=== PATIENT | female | born 1965 | race Caucasian/White ===

== ENCOUNTER 2016-07-22 09:30 | Inpatient (IN) | payer OTHER ==
[~2016-07-22] VITALS: Ht 171.4 cm; Wt 131.0 kg
[~2016-07-22 09:30] MED LIST changes: -CIPR-9 PO; -CYCL1TAB29 PO; -FLAX100025 PO; -FLAX10006 PO; -GETGO ROLLING W1 MI1; -HYDR-3366 PO; -HYDR-3583 PO; -MUPI2OIN TOPICAL; -NYST100084 TOPICAL; -OMEG600C2 PO; -WALKER ROLLING; -[UNRECOGNIZED DRUG - OTHER] TOP
[2016-07-22] MEDS ORDERED: FLAX10006 PO (09:59)
[2016-07-22] MEDS ORDERED: GETGO ROLLING W1 MI1 (09:59)
--- NOTE | 2016-07-23 12:42 | MH ---
cc: JOHN MURPHY MD, CARMEN L. MD DATE OF ADMISSION 07/24/2016 ADMISSION DIAGNOSIS Lumbar degenerative disk disease HISTORY OF PRESENT ILLNESS This is a 51-year-old female who is known to our office from previously undergoing a C4-C5, C5-C6, and C6-C7 anterior cervical fusion with C4-C7 anterior cervical plate placement on 03/06/2016. She healed well from her surgery and followed up in the office with complaints of weakness and numbness in her lower extremities. She has had weakness in the legs for the last year and a half, but this has progressively gotten worse. She gets sharp stabbing pain when she is standing on her legs. The pain in the legs is usually constant except with sitting or laying down. She states that she has urge incontinence, but does not wear have a pad or Depends. She has had three epidural steroid injection since May 2016. She had PT for six weeks which helped, but not for long. She states she can walk only five minutes and cannot stand very long. She states she has had weakness in the right foot with difficulty lifting her toes for the last year. She has numbness in her legs all over, but worse in the right lateral thigh. PAST MEDICAL HISTORY Significant for a: 1. Lumbar spine surgery at L4-L5 in 1985. 2. Anterior cervical C4-C5, C5-C6, C6-C7 interbody fusion with C4-C7 cervical plate placement on 03/06/2016 3. Sleep apnea 4. Hypertension 5. Gastroesophageal reflux disease 6. Depression CURRENT MEDICATIONS She takes: 1. Cymbalta 50 mg q.h.s. 2. Prevacid 30 mg daily. 3. Lisinopril 10 mg daily ALLERGIES She is allergic to PREDNISONE. FAMILY HISTORY Her mother is at 69 year's old, had a history of lung and liver cancer. Her father is AT 87 year's old had heart failure. Her sister is alive at 66 year's old, but in poor health. She has a brother who is alive at age 48 in good health. SOCIAL HISTORY She works in an office as a entertainment agent. She is . She does not have children. She does not smoke. She does not drink alcohol. REVIEW OF SYSTEMS CONSTITUTIONAL: She denies any fever or chills. EARS, NOSE, AND THROAT: No pharyngitis, exudates, bloody drainage from her nose. CARDIOVASCULAR: She denies any chest pain or palpitations. RESPIRATORY: No cough. Positive for shortness of breath. GENITOURINARY: No dysuria. MUSCULOSKELETAL: Positive for low back pain. SKIN: No rashes or pruritus. NEUROLOGIC: Positive for difficulty with speech and memory sometimes. GASTROINTESTINAL: No abdominal pain. No bowel incontinence. No nausea. PSYCHIATRIC: No anxiety. Positive for depression symptoms. ENDOCRINE: No polyuria or polydipsia. HEMATOLOGIC: No bruising or bleeding tendencies. PHYSICAL EXAMINATION HEAD: Normocephalic, atraumatic. NECK: Supple. No carotid bruits heard. LUNGS: On auscultation of the lungs, clear to auscultation bilaterally. HEART: Regular rate and rhythm, normal S1 and S2. ABDOMEN: Soft, nontender. Positive bowel sounds. She is obese. SKIN: No cyanosis or erythema. MUSCULOSKELETAL: She has right foot weakness, EHL is 0-1 out of 5. Dorsiflexion is 1/5. Her strength in the lower extremities is otherwise 5/5 in the lower extremities. NEUROLOGIC: She is awake, alert, and oriented. Cranial nerves II-XII appear grossly intact. Her speech is fluent. Comprehension is good. Reflexes are absent right patella, 2+, left patella and diminished Achilles reflexes bilaterally. DATA REVIEW MRI findings, she has severe degenerative disk disease and disk height collapse and endplate changes at the L3-L4, L4-L5 levels with a moderate degenerative disk disease at the L5-S1 level. There is a lesser degree of disk degeneration at the T12-L1 and L2-L3 levels. There is also chronic central T12-L1 disk protrusion mild stenosis. She has moderate spinal stenosis at the L2-L3, L3-L4, and L4-L5 levels from facet ligamentum flavum hypertrophy along with disk protrusions and significant right L3-L4 and L4-L5 foraminal stenosis. There is also a grade L4-L5 and to a lesser extent L3-L4 spondylolisthesis noted. L4-5 right hemilaminotomy defect with degenerative disk disease and a grade 1 retrolisthesis and facet arthropathy and L5-S1 degenerative disk disease with mild central disk protrusion. She has also had an EMG nerve conduction study from September 24, 2015 which reveals mild active right L4 and L5 lumbar radiculopathy and possibly the left L5 also. IMPRESSION A 51-year-old female with a chronic history of low back pain along with associated progressively worsening right foot drop and radiculopathy with subjective weakness in both legs and uses a cane to ambulate short distances due to her neurogenic claudication symptoms. She has undergone physical therapy and interventional pain management without much relief and relates that she cannot live with her current level of discomfort and activity restriction. PLAN We have discussed treatment options with the patient which include continued conservative measures versus surgical intervention. She is requesting that we proceed with surgical intervention stating that she cannot live with her current level discomfort and her activity restriction. We have recommended an L2-L5 decompressive laminotomy with right L3-L4 and L4-L5 transforaminal interbody fusion with pedicle screw fixation to address the stenosis involving the spinal canal and the foramen, as well as associated degenerative disk disease and spondylolisthesis. No guarantees were given as she has multiple other levels involved, as well as post laminectomy syndrome and scar tissue which can lead to ongoing symptoms. We have discussed risks involved with surgery to include, but not limited to bleeding, infection, muscle weakness, voice hoarseness, difficulty swallowing, heart attack, stroke blood clots, non-fusion, scar tissue formation among others. Dictated by: Ryan Soto PA-C MD MARVIN Saeed/SHARRON /11:56 AM /12:17 PM VIDHYA
[2016-07-24 06:43] VITALS: BP 149/87; PULSE 86; RESP 18; TEMP 98.9; O2SAT 96
[2016-07-24] MEDS ORDERED: VANCOMYCIN HCL 1000 MG VIAL ONE ×2 (06:43→07:52)
[2016-07-24] MEDS ORDERED: SODIUM CHLOR 0.9% 250 ML INJ 250 ML ONE (06:43)
[2016-07-24] MEDS ORDERED: INSULIN HUMAN REGULAR 1,000 UNITS/10 ML VIAL SQ PRN (07:00)
[2016-07-24] MEDS ORDERED: SODIUM CHLORID 0.9% 500 ML IV SCH (07:00)
[2016-07-24] MEDS: SODIUM CHLOR 0.9% 1000 ML INJ 1,000 ML IV SCH (07:00)
[2016-07-24] MEDS ORDERED: METOPROLOL TARTRATE 25 MG TAB PO PRN (07:00)
[2016-07-24] MEDS ORDERED: VANCOMYCIN HCL 1000 MG ON-CALL/NS 250 ML IV SCH ×2 (07:00)
[2016-07-24] MEDS ORDERED: LACTATED RINGER'S 1000 ML IV SCH (07:00)
[2016-07-24] MEDS ORDERED: ARTIFICIAL TEARS OPTH OINT 3.5 APPLIC/3.5 GM TUBO ONE (07:04)
[2016-07-24] MEDS ORDERED: KETAMINE HCL 500 MG/5 ML VIAL ONE (07:49)
[2016-07-24] MEDS ORDERED: MORPHINE SULFATE 4 MG/ML INJ ONE (07:50)
[2016-07-24] MEDS ORDERED: THROMBIN (TOPICAL) 5,000 UNIT VIAL ONE (07:52)
[2016-07-24] MEDS ORDERED: BUPIVACAINE/EPINEPHRINE 0.5% PF 30 ML VIAL ONE (07:52)
[2016-07-24] MEDS ORDERED: GELFOAM SIZE 100 ONE (07:53)
[2016-07-24] MEDS ORDERED: ACETAMINOPHEN 1000 MG/100 ML VIAL IV ONE (08:30)
[2016-07-24] MEDS ORDERED: MIDAZOLAM HCL 2 MG/2 ML VIAL ONE (08:30)
[2016-07-24] MEDS ORDERED: PHENYLEPH/NS 1000 MCG/10 ML SYR IV ONE (12:00)
[2016-07-24] MEDS ORDERED: NEOSTIGMINE 3 MG/3 ML SYR IV ONE (12:00)
[2016-07-24] MEDS ORDERED: ONDANSETRON HCL 4 MG/2 ML VIAL IV PUSH ONE (12:00)
[2016-07-24] MEDS ORDERED: PROPOFOL 200 MG/20 ML AMP IV ONE (12:00)
[2016-07-24] MEDS ORDERED: ePHEDrine/NS 25 MG/5 ML SYR IV ONE (12:00)
[2016-07-24] MEDS ORDERED: NORMOSOL R INJ 1,000 ML IV ONE (12:00)
[2016-07-24] MEDS ORDERED: BUPIVACAINE/EPINEPHRINE 0.5% PF 30 ML VIAL INFIL ONE (13:40)
[2016-07-24] MEDS ORDERED: VANCOMYCIN HCL 1000 MG VIAL OTHER ONE (13:45)
[2016-07-24] MEDS ORDERED: NALOXONE HCL 0.4 MG/ML AMP IV PRN (14:00)
[2016-07-24] MEDS ORDERED: cloNIDine HCL 0.1 MG TAB PO PRN (14:00)
[2016-07-24] MEDS ORDERED: PROMETHAZINE INJ 25 MG/ML VIAL IM PRN (14:00)
[2016-07-24] MEDS ORDERED: ALUMINUM/MAGNESIUM/SIMETH 30 ML CUP PO PRN (14:00)
[2016-07-24] MEDS ORDERED: MENTHOL LOZENGE SUCK-ON PRN (14:00)
[2016-07-24] MEDS ORDERED: ACETAMINOPHEN/HYDROcodone 325 MG/10 MG TAB PO PRN (14:00)
[2016-07-24] MEDS ORDERED: ACETAMINOPHEN 325 MG TAB PO PRN (14:00)
[2016-07-24] MEDS ORDERED: diphenhydrAMINE HCL 50 MG/ML VIAL IV PRN (14:00)
[2016-07-24] MEDS ORDERED: ONDANSETRON HCL 4 MG/2 ML VIAL IV PRN (14:00)
[2016-07-24] MEDS ORDERED: RESP: ALBUTEROL 2.5 MG/3 ML NEB (PRN) NEB (14:00)
[2016-07-24] MEDS ORDERED: CALCIUM GLUCONATE INJ 1 GM in SODIUM CHLORIDE 0.9% INJ 100 ML IV PRN (14:00)
[2016-07-24] MEDS ORDERED: SODIUM CHLORIDE 0.9% FLUSH 5 ML FLUSH IVF PRN (14:00)
[2016-07-24] MEDS ORDERED: POTASSIUM CHLOR 20 MEQ PREMIX 100 ML IV PRN (14:00)
[2016-07-24] MEDS ORDERED: MAGNESIUM SULFATE INJ 2 GM in SODIUM CHLORIDE 0.9% INJ 100 ML IV PRN (14:00)
[2016-07-24] MEDS ORDERED: TRIAMCINOLONE ACETONIDE 0.1% CREAM 15 GM TOPICAL SCH (14:00)
[2016-07-24] MEDS ORDERED: BISACODYL 10 MG SUPP PR PRN (14:00)
--- NOTE | 2016-07-24 14:02 | PD.OP ---
MD Juan Antonio Beatty MD Operative Report Date of Surgery: Jul 24, 2016 Preoperative Diagnosis: Failed back syndrome with intractable low back pain and radiculopathy; remote history of L4-5 laminectomy; L2-5 spinal stenosis; L3-4 and L4-5 severe degenerative disc disease with facet arthropathy Postoperative Diagnosis: Same Procedure: Lumbar L3-4 and L4-5 transforaminal interbody fusion; L2, L3, L4 and L5 decompressive laminotomy; L3-5 pedicle screw fixation; L3-4 and L4-5 interbody cage placement; microsurgical technique Anesthesia: Gen. endotracheal by Seema Doty Surgeon: Narayan Monk Hvac Design Engineer(s): Sandi Nguyen Operation and Findings: Following initiation of general endotracheal anesthesia, the patient had a Corcoran catheter placed along with sequential compression devices. A gram of vancomycin was administered intravenously and she was turned in a prone position on a Michael frame, on a Efrain table, and all pressure points adequately padded. The lumbosacral region was then prepped with Chloraprep and sterilely draped with Ioban along the usual sterile draping. She had a previous large midline skin incision which was incised after infiltrating the skin with 0.5% Marcaine with epinephrine solution extending down through the fascia. The muscle fibers were split using avascular fatty plane and detached from the underlying facets, transverse process and lateral portion of lamina on the right side and a self-retaining retractor used for exposure. Intraoperative fluoroscopy was also used for level of confirmation along with microscope magnification for further dissection. There was significant facet and ligamentum flavum hypertrophy noted at the L2-3, L3-4 and L4-5 levels with the right L4-5 laminectomy defect with extensive epidural scar tissue. Right L3-4 and L4-5 facet was resected with a drill bit along with the lamina and there was severe foraminal and lateral recess stenosis from hypertrophied ligamentum flavum and facet which were decompressed bilaterally through the usual lateral approach. There was significant disc height collapse along with disc protrusion also leading to the foraminal stenosis at both levels. Right L2-3 hemilaminotomy with medial facetectomy and circumferential spinal canal decompression with removal of hypertrophied ligamentum flavum also undertaken. Epidural hemostasis was achieved with bipolar cautery and Gelfoam with thrombin. Subsequently entered into the disc space at the L3-4 and L4-5 levels with a #15 blade and bouchra were used for discectomy. I then placed PEEK cage packed with local autograft bone and more local autograft bone was packed adjacent to the cage in interspace for added interbody fusion. With placement of the cages, I was able to distract the interspace and opened up the foramen further bilaterally. Subsequently in order to facilitate the fusion and provide stabilization, pedicle screw fixation was undertaken using Williamson spine screws on entry point at the right L3, L4 and L5 levels at the junction of the transverse process and facets. Subsequently using AP and lateral fluoroscopy tap and screw placement was undertaken. The screws were then connected with a chikis and locked in place with caps. The construct appeared very secure at this point. The area was then copiously irrigated with Vancomycin solution and powder. The retractors were removed and the bipolar cautery used for hemostasis. The muscle fascia was then approximated using 2-0 Vicryl interrupted stitches and then 3-0 Vicryl subcuticular stitches also placed in interrupted fashion. The final skin closure was completed with ady. A sterile dressing was then applied. The patient then turned in supine position, extubated and taken to recovery room. There were no intraoperative complications. All sponge and needle counts were correct at the end of procedure. Estimated blood loss about 200 ml. Narayan Monk MD Jul 24, 2016 14:02
[2016-07-24] MEDS ORDERED: DO NOT ADM ANY ANTICOAGULANT DRUGS XX PRN (14:40)
--- NOTE | 2016-07-24 15:04 | RADRPT ---
EXAM DATE/TIME: 07/24/2016 08:46 [facility] COMPARISON: No previous studies available for comparison. INDICATIONS : Fusion L3,L4 and L4,L5 with screw and chikis placement. MEDICAL HISTORY : None. SURGICAL HISTORY : Fusion, cervical. ENCOUNTER: Initial ACUITY: 1 day PAIN SCORE: Non-responsive. LOCATION: Lumbar spine. FINDINGS: 2 magnified C-arm spot views are centered over the lower lumbar spine. These reveal 3 level unilatera l posterior fixation involving L3, L4, L5 with intervening bone graft devices. Alignment is grossly p reserved. CONCLUSION: Limited images as detailed above. Vincent Henriquez Jr., MD on July 24, 2016 at 15:02 Board Certified Radiologist. This report was verified electronically.
[2016-07-24] MEDS ORDERED: *RESP: ALBUTEROL 2.5 MG/3 ML NEB (PRN) PERIprocedural Use ONLY NEB ONE (15:30)
[2016-07-24] MEDS: NS + KCL 20 MEQ INJ 1,000 ML IV SCH ×2 (16:00→22:49)
[2016-07-24] MEDS: MORPHINE SULFATE 30 MG/30 ML PCA IV SCH (16:00)
[2016-07-24] MEDS ORDERED: *morphine SULFATE 8 MG/ML PERIprocedure ONLY ONE (16:47)
[2016-07-24] MEDS: CYCLOBENZAPRINE HCL 10 MG TAB PO PRN (16:58)
[2016-07-24 17:48] LABS: AUTOMATED NEUTROPHIL # 13.6 TH/MM3 (1.8-7.7); BASOPHIL % 0.2 % (0.0-2.0); HEMATOCRIT 36.3 % (35.0-46.0); HEMO FLAGS DIFF FINAL; LYMPHOCYTE # 1.1 TH/MM3 (1.0-4.8); MEAN CELL VOLUME 94.5 FL (80.0-100.0); MEAN CORPUSCULAR HEMOGLOBIN 31.4 PG (27.0-34.0); MEAN CORPUSCULAR HGB CONC 33.2 % (32.0-36.0); MONO % 4.6 % (0.0-8.0); NEUT % 88.2 % (16.0-70.0); PLATELET COUNT 235 TH/MM3 (150-450); RED BLOOD COUNT 3.84 MIL/MM3 (4.00-5.30); RED CELL DISTRIBUTION WIDTH 15.2 % (11.6-17.2); WHITE BLOOD COUNT 15.4 TH/MM3 (4.0-11.0)
[2016-07-24 18:04] LABS: BICARBONATE 25.4 MEQ/L (21.0-32.0); MAGNESIUM 1.8 MG/DL (1.5-2.5); POTASSIUM 4.8 MEQ/L (3.5-5.1)
[2016-07-24] MEDS: SODIUM CHLORIDE 0.9% FLUSH 5 ML FLUSH IVF SCH (21:00)
[2016-07-24 22:00] VITALS: BP 109/58; PULSE 98; RESP 17; TEMP 97.9; O2SAT 98
[2016-07-24] MEDS: PCA - TOTAL MG MORPHINE DELIVERED PER SHIFT SCH (22:00)
[2016-07-24] MEDS: GABAPENTIN 300 MG CAP PO SCH (22:48)
[2016-07-24] MEDS: DOCUSATE SODIUM 100 MG CAP PO SCH (22:48)
[2016-07-25 04:00] VITALS: BP 100/65; PULSE 102; RESP 16; TEMP 100.1; O2SAT 93
[2016-07-25] MEDS: PCA - TOTAL MG MORPHINE DELIVERED PER SHIFT SCH ×3 (05:42→22:00)
[2016-07-25] MEDS: SODIUM CHLOR 0.9% 1000 ML INJ 1,000 ML IV SCH ×2 (07:00→22:16)
[2016-07-25 08:00] VITALS: BP 111/58; PULSE 106; RESP 16; TEMP 97.9; O2SAT 94
[2016-07-25] MEDS: DOCUSATE SODIUM 100 MG CAP PO SCH ×2 (10:10→20:31)
[2016-07-25] MEDS: DULoxetine HCl DR 30 MG CAP PO SCH (10:10)
[2016-07-25] MEDS: MULTIVITAMIN TAB PO SCH (10:10)
[2016-07-25] MEDS: PANTOPRAZOLE SOD 40 MG DELAYED RELEASE TAB PO SCH (10:10)
[2016-07-25] MEDS: LISINOPRIL 10 MG TAB PO SCH (10:10)
[2016-07-25] MEDS: GABAPENTIN 100 MG CAP PO SCH (10:11)
[2016-07-25] MEDS: SODIUM CHLORIDE 0.9% FLUSH 5 ML FLUSH IVF SCH ×2 (10:11→20:31)
[2016-07-25] MEDS: NS + KCL 20 MEQ INJ 1,000 ML IV SCH (10:19)
--- NOTE | 2016-07-25 10:52 | HHI.NSPN ---
History Chief Complaint: Incisional back pain Interval History 07/25/16: Pt s/p L2-L5 decompressive laminectomy with L3/L4 and L4/L5 TLIF with pedicle screw fixation. She complains of incisional pain. No radiculopathy in LEs. She is laying in bed. She has sequential boots in place. Review of Systems General: Negative for: fever, chills, insomnia Respiratory: Negative for: shortness of breath, cough, sputum Cardiovascular: Negative for: chest pain Gastrointestinal: Negative for: nausea, vomitting, diarrhea, constipation Exam Results Vital Signs Date Time Temp Pulse Resp B/P Pulse Ox O2 Delivery O2 Flow Rate FiO2 07/25/16 08:00 97.9 106 16 111/58 94 07/24/16 20:42 4 07/24/16 15:45 Nasal Cannula Intake and Output 07/24/16 07/24/16 07/25/16 08:00 16:00 00:00 Intake Total 2200 ml 563 ml Output Total 550 ml 900 ml Balance 1650 ml -337 ml Physical Examination Resp: CTA bilaterally Heart: NSR no murmurs Abd: Soft positive bs Skin: No cyanosis or erythema in LEs. Bandage changed by RN this morning. Muscle: Right dorsiflexion weakness, otherwise moves LEs well Neuro: Pt awake and alert. Follows commands well speech clear and appropriate. Lab, Micro, Other Results Laboratory Tests Test 07/24/16 17:37 White Blood Count 15.4 TH/MM3 Red Blood Count 3.84 MIL/MM3 Hemoglobin 12.1 GM/DL Hematocrit 36.3 % Mean Corpuscular Volume 94.5 FL Mean Corpuscular Hemoglobin 31.4 PG Mean Corpuscular Hemoglobin 33.2 % Concent Red Cell Distribution Width 15.2 % Platelet Count 235 TH/MM3 Mean Platelet Volume 7.1 FL Neutrophils (%) (Auto) 88.2 % Lymphocytes (%) (Auto) 7.0 % Monocytes (%) (Auto) 4.6 % Eosinophils (%) (Auto) 0.0 % Basophils (%) (Auto) 0.2 % Neutrophils # (Auto) 13.6 TH/MM3 Lymphocytes # (Auto) 1.1 TH/MM3 Monocytes # (Auto) 0.7 TH/MM3 Eosinophils # (Auto) 0.0 TH/MM3 Basophils # (Auto) 0.0 TH/MM3 CBC Comment DIFF FINAL Differential Comment Sodium Level 140 MEQ/L Potassium Level 4.8 MEQ/L Chloride Level 108 MEQ/L Carbon Dioxide Level 25.4 MEQ/L Anion Gap 7 MEQ/L Blood Urea Nitrogen 14 MG/DL Creatinine 1.33 MG/DL Estimat Glomerular Filtration 42 ML/MIN Rate Random Glucose 130 MG/DL Calcium Level 7.9 MG/DL Magnesium Level 1.8 MG/DL 07/24/16 07/24/16 07/25/16 15:00 23:00 07:00 Intake Total 2200 ml 563 ml 1300 ml Output Total 550 ml 900 ml 750 ml Balance 1650 ml -337 ml 550 ml Intake Oral 30 ml 600 ml IV Total 533 ml 700 ml Other 2200 ml Output Urine Total 350 ml 900 ml 750 ml Estimated Blood Loss 200 ml # Bowel Movements 0 Medical Decision Making Impression and Plan A: 51 y/o FM s/p L2-L5 decompressive laminectomy with L3/L4 and L4/L5 TLIF with cage and pedicle screw fixation. P: Continue with pain control. Continue with rehab efforts. Pt will benefit from inpatient rehab placement given her right dorsiflexion weakness and her history of falls. Ryan Soto Jul 25, 2016 10:52
[2016-07-25 12:00] VITALS: BP 124/60; PULSE 101; RESP 18; TEMP 100.4; O2SAT 93
[2016-07-25] MEDS: MORPHINE SULFATE 30 MG/30 ML PCA IV SCH (12:37)
[2016-07-25] MEDS: ACETAMINOPHEN/HYDROcodone 325 MG/10 MG TAB PO PRN ×2 (16:00→20:30)
[2016-07-25 20:16] VITALS: BP 115/66; PULSE 101; RESP 20; TEMP 98.7; O2SAT 94
[2016-07-25] MEDS: CYCLOBENZAPRINE HCL 10 MG TAB PO PRN (20:30)
[2016-07-25] MEDS: GABAPENTIN 300 MG CAP PO SCH (20:31)
[2016-07-25] MEDS: ZOLPIDEM TARTRATE 5 MG TAB PO PRN (23:41)
[2016-07-26 00:32] VITALS: BP_SYST 112; BP_SYST 134; BP_DIAS 59; BP_DIAS 75; PULSE 100; PULSE 52; RESP 19; RESP 20; TEMP 98.7; TEMP 99.8; O2SAT 100; O2SAT 92
[2016-07-26 04:14] VITALS: BP 108/67; PULSE 100; RESP 19; TEMP 98.4; O2SAT 92
[2016-07-26] MEDS: ACETAMINOPHEN/HYDROcodone 325 MG/10 MG TAB PO PRN ×5 (04:32→21:48)
[2016-07-26] MEDS: PCA - TOTAL MG MORPHINE DELIVERED PER SHIFT SCH ×3 (06:00→20:23)
[2016-07-26 08:00] VITALS: BP 118/65; PULSE 92; RESP 17; TEMP 98; O2SAT 93
[2016-07-26] MEDS: GABAPENTIN 100 MG CAP PO SCH (09:35)
[2016-07-26] MEDS: PANTOPRAZOLE SOD 40 MG DELAYED RELEASE TAB PO SCH (09:35)
[2016-07-26] MEDS: LISINOPRIL 10 MG TAB PO SCH (09:35)
[2016-07-26] MEDS: SODIUM CHLORIDE 0.9% FLUSH 5 ML FLUSH IVF SCH ×2 (09:35→20:24)
[2016-07-26] MEDS: DOCUSATE SODIUM 100 MG CAP PO SCH ×2 (09:35→20:21)
[2016-07-26] MEDS: MULTIVITAMIN TAB PO SCH (09:35)
[2016-07-26] MEDS: CYCLOBENZAPRINE HCL 10 MG TAB PO PRN ×2 (09:35→17:38)
[2016-07-26] MEDS: MAGNESIUM HYDROXIDE SUSP 30 ML CUP PO PRN (09:36)
[2016-07-26] MEDS: DULoxetine HCl DR 30 MG CAP PO SCH (09:36)
[2016-07-26 12:10] VITALS: BP 119/81; PULSE 91; RESP 16; TEMP 98.6; O2SAT 93
--- NOTE | 2016-07-26 12:18 | HHI.NSPN ---
(Ryan Soto) History Chief Complaint: Incisional back pain (Ryan Soto) Interval History 07/25/16: Pt s/p L2-L5 decompressive laminectomy with L3/L4 and L4/L5 TLIF with pedicle screw fixation. She complains of incisional pain. No radiculopathy in LEs. She is laying in bed. She has sequential boots in place. 07/26/16: Pt awake and sitting up in chair. Complains of incisional pain. Pain radiating into right buttocks and posterior right thigh. Pt complains of numbness in LEs. Not ambulating far. (Ryan Soto) Review of Systems General: Negative for: fever, chills, insomnia Respiratory: Negative for: shortness of breath, cough, sputum Cardiovascular: Negative for: chest pain Gastrointestinal: Negative for: nausea, vomitting, diarrhea, constipation ( Ryan Soto) Exam Results Vital Signs Date Time Temp Pulse Resp B/P Pulse Ox O2 Delivery O2 Flow Rate FiO2 07/26/16 12:10 98.6 91 16 119/81 93 07/24/16 20:42 4 07/24/16 15:45 Nasal Cannula Intake and Output 07/25/16 07/25/16 07/26/16 08:00 16:00 00:00 Intake Total 1300 ml 1688 ml Output Total 750 ml Balance 550 ml 1688 ml (Ryan Soto) Physical Examination Resp: CTA bilaterally Heart: NSR no murmurs Abd: Soft positive bs Skin: No cyanosis or erythema in LEs. Muscle: Right dorsiflexion and EHL weakness, otherwise moves LEs 4/5 Neuro: Pt awake and alert. Follows commands well speech clear and appropriate. (Ryan Soto) Lab, Micro, Other Results 07/25/16 07/25/16 07/26/16 15:00 23:00 07:00 Intake Total 1688 ml 457 ml Balance 1688 ml 457 ml Intake Oral 360 ml 240 ml IV Total 1328 ml 217 ml # Voids 2 2 # Bowel Movements 0 0 (Ryan Soto) Medical Decision Making Impression and Plan A: 51 y/o FM s/p L2-L5 decompressive laminectomy with L3/L4 and L4/L5 TLIF with cage and pedicle screw fixation. P: Continue with pain control. Continue with rehab efforts. Pt will benefit from inpatient rehab placement given her right dorsiflexion weakness and her history of falls. (Ryan Soto) Attending Statement The exam, history, and the medical decision-making described in the above note were completed with the assistance of the mid-level provider. I reviewed and agree with the findings presented. I attest that I had a [id number] encounter with the patient on the same day, and personally performed and documented my assessment and findings in the medical record. (Narayan Monk MD) Ryan Soto Jul 26, 2016 12:18 Narayan Monk MD Jul 26, 2016 12:37
[2016-07-26] MEDS: DEXAMETHASONE SOD PHOS 4 MG/ML VIAL IV PUSH SCH ×2 (13:29→17:38)
[2016-07-26] MEDS: BACITRACIN TOP OINT 15 GM TUBE TOP SCH ×2 (14:00→20:22)
[2016-07-26 16:16] VITALS: BP 106/53; PULSE 95; RESP 16; TEMP 97.6; O2SAT 94
[2016-07-26 20:15] VITALS: BP 129/67; PULSE 109; RESP 18; TEMP 97.6; O2SAT 94
[2016-07-26] MEDS: GABAPENTIN 300 MG CAP PO SCH (20:21)
[2016-07-26] MEDS: ZOLPIDEM TARTRATE 5 MG TAB PO PRN (21:48)
[2016-07-27 00:20] VITALS: BP 108/70; PULSE 78; RESP 18; TEMP 97.6; O2SAT 95
[2016-07-27] MEDS: DEXAMETHASONE SOD PHOS 4 MG/ML VIAL IV PUSH SCH (00:55)
[2016-07-27] MEDS: PCA - TOTAL MG MORPHINE DELIVERED PER SHIFT SCH ×3 (04:02→22:00)
[2016-07-27] MEDS: SODIUM CHLOR 0.9% 1000 ML INJ 1,000 ML IV SCH (04:03)
[2016-07-27] MEDS: CYCLOBENZAPRINE HCL 10 MG TAB PO PRN ×2 (04:06→16:11)
[2016-07-27] MEDS: ACETAMINOPHEN/HYDROcodone 325 MG/10 MG TAB PO PRN ×5 (04:07→20:23)
[2016-07-27 04:25] VITALS: BP 149/86; PULSE 83; RESP 18; TEMP 98.3; O2SAT 95
[2016-07-27 07:49] VITALS: BP 120/75; PULSE 84; RESP 17; TEMP 96.3; O2SAT 94
[2016-07-27] MEDS: SODIUM CHLORIDE 0.9% FLUSH 5 ML FLUSH IVF SCH ×2 (08:00→20:23)
[2016-07-27] MEDS: PANTOPRAZOLE SOD 40 MG DELAYED RELEASE TAB PO SCH (08:00)
[2016-07-27] MEDS: DULoxetine HCl DR 30 MG CAP PO SCH (08:00)
[2016-07-27] MEDS: DOCUSATE SODIUM 100 MG CAP PO SCH ×2 (08:00→20:23)
[2016-07-27] MEDS: MULTIVITAMIN TAB PO SCH (08:00)
[2016-07-27] MEDS: LISINOPRIL 10 MG TAB PO SCH (08:00)
[2016-07-27] MEDS: GABAPENTIN 100 MG CAP PO SCH (08:00)
[2016-07-27] MEDS: MAGNESIUM HYDROXIDE SUSP 30 ML CUP PO PRN (08:01)
[2016-07-27] MEDS: BACITRACIN TOP OINT 15 GM TUBE TOP SCH ×2 (08:22→20:26)
--- NOTE | 2016-07-27 10:00 | HHI.NSPN ---
(Ryan Soto) History Chief Complaint: Incisional back pain (Ryan Soto) Interval History 07/25/16: Pt s/p L2-L5 decompressive laminectomy with L3/L4 and L4/L5 TLIF with pedicle screw fixation. She complains of incisional pain. No radiculopathy in LEs. She is laying in bed. She has sequential boots in place. 07/26/16: Pt awake and sitting up in chair. Complains of incisional pain. Pain radiating into right buttocks and posterior right thigh. Pt complains of numbness in LEs. Not ambulating far. 07/27/16: Pt awake and alert. Sitting up in chair. Back pain improving. Occasionally pain radiates into the posterior right leg. Pt has weakness in Right leg distally in particular and is limited in mobility current to just around her bed. (Ryan Soto) Review of Systems General: Negative for: fever, chills, insomnia Respiratory: Negative for: shortness of breath, cough, sputum Cardiovascular: Negative for: chest pain Gastrointestinal: Negative for: nausea, vomitting, diarrhea, constipation ( Ryan Soto) Exam Results Vital Signs Date Time Temp Pulse Resp B/P Pulse Ox O2 Delivery O2 Flow Rate FiO2 07/27/16 07:49 96.3 84 17 120/75 94 07/24/16 20:42 4 07/24/16 15:45 Nasal Cannula Intake and Output 07/26/16 07/26/16 07/27/16 08:00 16:00 00:00 Intake Total 457 ml 720 ml 730 ml Balance 457 ml 720 ml 730 ml (Ryan Soto) Physical Examination Resp: CTA bilaterally Heart: NSR no murmurs Abd: Soft positive bs. Sitting up with brace on in chair. Skin: No cyanosis or erythema in LEs. RN changed bandage this morning. Muscle: Right dorsiflexion and EHL weakness, otherwise moves LEs 4/5. Sitting up in chair with brace on. Neuro: Pt awake and alert. Follows commands well speech clear and appropriate. (Ryan Soto) Lab, Micro, Other Results Last Impressions Lumbar Spine X-Ray 07/24/16 0000 Signed Impressions: Service Date/Time: July 08:46 - CONCLUSION: Limited images as detailed above. Vincent Henriquez Jr., MD 07/26/16 07/26/16 07/27/16 15:00 23:00 07:00 Intake Total 720 ml 730 ml 720 ml Output Total 1600 ml Balance 720 ml 730 ml -880 ml Intake Oral 720 ml 480 ml 720 ml IV Total 250 ml Output Urine Total 1600 ml # Voids 3 2 1 # Bowel Movements 1 0 (Ryan Soto) Medical Decision Making Impression and Plan A: 51 y/o FM s/p L2-L5 decompressive laminectomy with L3/L4 and L4/L5 TLIF with cage and pedicle screw fixation. P: Continue with pain control. Continue with rehab efforts. Pt will benefit from inpatient rehab placement given her right dorsiflexion weakness and her history of falls. (Ryan Soto) Attending Statement The exam, history, and the medical decision-making described in the above note were completed with the assistance of the mid-level provider. I reviewed and agree with the findings presented. I attest that I had a [id number] encounter with the patient on the same day, and personally performed and documented my assessment and findings in the medical record. (Narayan Monk MD) Ryan Soto Jul 27, 2016 10:00 Narayan Monk MD Jul 27, 2016 11:28
[2016-07-27 12:22] VITALS: BP 150/98; PULSE 94; RESP 18; TEMP 97.5; O2SAT 97
[2016-07-27 16:23] VITALS: BP 102/56; PULSE 82; RESP 17; TEMP 97.8; O2SAT 98
[2016-07-27 18:26] VITALS: BP 108/70; PULSE 82; RESP 16; TEMP 97.5; O2SAT 98
[2016-07-27] MEDS: GABAPENTIN 300 MG CAP PO SCH (20:23)
[2016-07-27] MEDS: ZOLPIDEM TARTRATE 5 MG TAB PO PRN (20:23)
[2016-07-28 00:15] VITALS: BP 132/83; PULSE 84; RESP 17; TEMP 96.1; O2SAT 96
[2016-07-28] MEDS: CYCLOBENZAPRINE HCL 10 MG TAB PO PRN ×2 (00:30→08:41)
[2016-07-28] MEDS: ACETAMINOPHEN/HYDROcodone 325 MG/10 MG TAB PO PRN ×4 (00:32→16:03)
[2016-07-28] MEDS: PCA - TOTAL MG MORPHINE DELIVERED PER SHIFT SCH ×2 (06:00→12:11)
[2016-07-28] MEDS: SODIUM CHLOR 0.9% 1000 ML INJ 1,000 ML IV SCH (07:00)
[2016-07-28 07:40] VITALS: BP 112/69; PULSE 71; RESP 17; TEMP 96.3; O2SAT 97
[2016-07-28] MEDS: LISINOPRIL 10 MG TAB PO SCH (08:41)
[2016-07-28] MEDS: DULoxetine HCl DR 30 MG CAP PO SCH (08:41)
[2016-07-28] MEDS: PANTOPRAZOLE SOD 40 MG DELAYED RELEASE TAB PO SCH (08:41)
[2016-07-28] MEDS: GABAPENTIN 100 MG CAP PO SCH (08:41)
[2016-07-28] MEDS: DOCUSATE SODIUM 100 MG CAP PO SCH (08:41)
[2016-07-28] MEDS: MULTIVITAMIN TAB PO SCH (08:41)
[2016-07-28] MEDS: SODIUM CHLORIDE 0.9% FLUSH 5 ML FLUSH IVF SCH (08:45)
[2016-07-28] MEDS: BACITRACIN TOP OINT 15 GM TUBE TOP SCH (08:46)
--- NOTE | 2016-07-28 10:14 | HHI.NSPN ---
(Ryan Soto) History Chief Complaint: Incisional back pain (Ryan Soto) Interval History 07/25/16: Pt s/p L2-L5 decompressive laminectomy with L3/L4 and L4/L5 TLIF with pedicle screw fixation. She complains of incisional pain. No radiculopathy in LEs. She is laying in bed. She has sequential boots in place. 07/26/16: Pt awake and sitting up in chair. Complains of incisional pain. Pain radiating into right buttocks and posterior right thigh. Pt complains of numbness in LEs. Not ambulating far. 07/27/16: Pt awake and alert. Sitting up in chair. Back pain improving. Occasionally pain radiates into the posterior right leg. Pt has weakness in Right leg distally in particular and is limited in mobility current to just around her bed. 07/28/16: Pt awake and alert. Sitting up in chair. States intermittent right lateral leg pain with associated paresthesias. Weakness with right dorsiflexion strength. Voiding well. Moving bowels well. (Ryan Soto) Review of Systems General: Negative for: fever, chills, insomnia Respiratory: Negative for: shortness of breath, cough, sputum Cardiovascular: Negative for: chest pain Gastrointestinal: Negative for: nausea, vomitting, diarrhea, constipation ( Ryan Soto) Exam Results Vital Signs Date Time Temp Pulse Resp B/P Pulse Ox O2 Delivery O2 Flow Rate FiO2 07/28/16 07:40 96.3 71 17 112/69 97 07/24/16 20:42 4 07/24/16 15:45 Nasal Cannula Intake and Output 07/27/16 07/27/16 07/28/16 08:00 16:00 00:00 Intake Total 720 ml 960 ml 720 ml Output Total 1600 ml Balance -880 ml 960 ml 720 ml (Ryan Soto) Physical Examination Resp: CTA bilaterally Heart: NSR no murmurs Abd: Soft positive bs. Sitting up with brace on in chair. Skin: No cyanosis or erythema in LEs. Muscle: Right dorsiflexion and EHL weakness 2/5, otherwise moves LEs 4/5. Sitting up in chair with brace on. Neuro: Pt awake and alert. Follows commands well speech clear and appropriate. (Ryan Soto) Lab, Micro, Other Results 07/27/16 07/27/16 07/28/16 15:00 23:00 07:00 Intake Total 960 ml 720 ml 240 ml Balance 960 ml 720 ml 240 ml Intake Oral 960 ml 720 ml 240 ml # Voids 3 2 1 # Bowel Movements 1 0 0 (Ryan Soto) Medical Decision Making Impression and Plan A: 51 y/o FM s/p L2-L5 decompressive laminectomy with L3/L4 and L4/L5 TLIF with cage and pedicle screw fixation. P: Continue with pain control. Continue with rehab efforts. Pt will benefit from inpatient rehab placement given her right dorsiflexion weakness and her history of falls. We are currently trying to get [facility] approval. (Ryan Soto) Attending Statement The exam, history, and the medical decision-making described in the above note were completed with the assistance of the mid-level provider. I reviewed and agree with the findings presented. I attest that I had a [id number] encounter with the patient on the same day, and personally performed and documented my assessment and findings in the medical record. Overall progressing well. Plan retirement home/rehabilitation placement when bed available. (Narayan Monk MD) Ryan Soto Jul 28, 2016 10:14 Narayan Monk MD Jul 28, 2016 16:31
[2016-07-28] MEDS: MAGNESIUM HYDROXIDE SUSP 30 ML CUP PO PRN (10:57)
[2016-07-28 12:35] VITALS: BP 167/82; PULSE 94; RESP 17; TEMP 96.8; O2SAT 96
[2016-07-28] MEDS ORDERED: CYCL1TAB29 PO (12:49)
[2016-07-28] MEDS ORDERED: HYDR-3366 PO (12:49)
[2016-07-28] MEDS ORDERED: ENOXAPARIN SODIUM 30 MG/0.3 ML SYRINGE SQ SCH (18:00)
[2016-08-04] MEDS ORDERED: HYDR-3366 PO (10:54)
[2016-09-08] MEDS ORDERED: MUPI2OIN TOPICAL (12:00)
--- NOTE | 2016-09-28 19:21 | HHI.DS ---
Discharge Summary Admission Date Jul 24, 2016 at 05:44 Discharge Date: Jul 28, 2016 Admitting Diagnosis (1) Spondylolisthesis of lumbar region Diagnosis: Principal ICD Code: M43.16 (2) Lumbar foraminal stenosis Diagnosis: Principal ICD Code: M99.83 (3) BMI 45.0-49.9, adult Diagnosis: Secondary ICD Code: Z68.42 (4) Obstructive sleep apnea of adult Diagnosis: Secondary ICD Code: G47.33 (5) Lumbar degenerative disc disease Diagnosis: Principal ICD Code: M51.36 (6) Facet arthropathy, lumbar Diagnosis: Principal ICD Code: M46.96 (7) Postlaminectomy syndrome, lumbar Diagnosis: Principal ICD Code: M96.1 Procedures Lumbar L3/L4 and L4/L5 transforaminal interbody fusion; L2, L3, L4 and L5 decompressive laminectomy. L3 to L5 pedicle screw fixation; L3/L4 and L4/L5 interbody cage placement by Dr. Monk on 07/24/16. Brief History This is a 51-year-old female who has previously undergone a C4/C5 and C5/C6 and C6/C7 anterior cervical fusion with C4 through C7 anterior cervical plate placement on 03/06/16. She healed well from her surgery and followed up in the office with complaints of weakness and numbness in her lower extremities. She has had weakness in the legs for the last year and a half but this has progressively gotten worse. She gets sharp stabbing pain when she is standing. The pain in the legs is usually constant except with sitting or laying down. She states that she has urge incontinence but no rogelio incontinence. She has had 3 epidural steroid injections since May 2016. She has had physical therapy for 6 weeks which helped enough along. She states she can walk only 5 minutes and cannot stand for very long. She states she has had weakness in her right foot with difficulty lifting her toes for the last year. She has numbness in her legs all over but worse in the right lateral thigh. Imaging MRI of the lumbar spine reveals severe degenerative disc disease with disc height collapse and endplate changes at the L3/L4, L4/L5 levels with a moderate degeneration of her disc at the L5/S1 level. There is a lesser degree of disc degeneration at the T12/L1 and L2/L3 levels. There is also chronic central T12/ L1 disc protrusion with mild stenosis. She has moderate spinal stenosis at the L2/L3 L3/L4, and L4/L5 levels from facet and ligamentum flavum hypertrophy along with disc protrusions and significant right L3/L4 and L4/L5 foraminal stenosis. There is also a grade I L4/L5 and to a lesser extent L3/L4 spinal listhesis noted. She has a right L4/L5 hemilaminotomy defect with degenerative disc disease and a grade 1 retrolisthesis and facet arthropathy and L5/S1 degenerative disc disease with mild central disc protrusion. She also has an EMG nerve conduction study from September 24, 2015 which reveals mild active right L4 and L5 lumbar radiculopathy and possibly a left L5 radiculopathy also. Hospital Course Patient underwent the above-noted procedure by Dr. Monk. There was no intraoperative complications. Postoperatively the patient was admitted to the med/surg floor. Her pain was controlled. Physical therapy was consult and occupational therapy also. Patient's activity status was increased. 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 Her [place] catheter was discontinued. Patient was transferred to a [facility] facility. Pt Condition on Discharge: Stable Discharge Disposition: Discharge to SNF Discharge Instructions DIET: Follow Instructions for: As Tolerated, No Restrictions ACTIVITIES You can perform: Shower Only-No Bath Activities to Avoid: Lifting/Bending, Prolonged Standing, Strenuous Activity, Bathing, Driving ADDITIONAL Activity Instructio: LSO brace on when out of bed New Medications: Cyclobenzaprine (Flexeril) 10 Mg Tab 10 MG PO TID Muscle Spasm #90 Ref 0 TAB Continued Medications: Duloxetine DR (Cymbalta DR) 30 Mg Capdr 30 MG PO DAILY #30 Ref 0 CAP Flaxseed (Linseed) (Flaxseed Oil) 1,000 Mg Cap 1000 MG PO DAILY Nutritional Supplement Ref 0 CAP Gabapentin (Gabapentin) 100 Mg Cap 200 MG PO DAILY #60 Ref 0 CAP Gabapentin (Gabapentin) 300 Mg Cap 300 MG PO HS #30 Ref 0 CAP Lansoprazole (Prevacid) 30 Mg Capdr 30 MG PO DAILY #90 Ref 1 CAP Multiple Vitamin (Multiple Vitamin) 1 Tab 1 TAB PO DAILY Nutritional Supplement Ref 0 TAB Triamcinolone Topical (Triamcinolone Topical) 0.1% Cream 1 APPLIC TOPICAL ONCE Inflammation #1 Ref 0 TUBE Ryan Soto Sep 28, 2016 19:21
[2016-10-06] MEDS ORDERED: CYMB30CA PO (09:53)
[2016-10-06] MEDS ORDERED: LISI10TA3 PO (10:00)
[2016-10-06] MEDS ORDERED: PREV30CA11 PO (10:00)
== END 2016-07-28 17:00 | DRG 460 ==
LOC: HSDI 07-24 05:44 → N06A 07-24 21:31
PROVIDERS: ADMIT Neurological Surgery; ATTEND Neurological Surgery
PROC: 0SB20ZZ Excision of Lumbar Vertebral Disc, Open Approach (ICD-10-PCS; 2016-07-24)
PROC: 0SG10AJ Fusion of 2 or more Lumbar Vertebral Joints with Interbody Fusion Device, Posterior Approach, Anterior Column, Open Approach (ICD-10-PCS; principal; 2016-07-24 08:32)
DX: M51.16 Intervertebral disc disorders with radiculopathy, lumbar region (principal); Z68.41 Body mass index [BMI] 40.0-44.9, adult; I10 Essential (primary) hypertension; G47.30 Sleep apnea, unspecified; N39.41 Urge incontinence; E66.9 Obesity, unspecified; K21.9 Gastro-esophageal reflux disease without esophagitis; M21.371 Foot drop, right foot; M48.06 Spinal stenosis, lumbar region; F32.9 Major depressive disorder, single episode, unspecified; Z98.1 Arthrodesis status
CPT/HCPCS: 72100; 76000; 76937; 80048; 83735; 85025; 86850; 86900; 86901; 94150; 94664; C1713; J0131; J0690; J1100; J2250; J2270; J2370; J2405; J2710; J3010; J3370; J3475; J3480; J7030; J7050; J7120; J7613; L0484

== ENCOUNTER → 2016-07-22 | Outpatient (CLI) | payer OTHER ==
[~2016-07-22] MED LIST: CIPR-9 PO; CYCL1TAB29 PO; CYMB30CA PO; FLAX100025 PO; FLAX10006 PO; GABA100C4 PO; GABA300C5 PO; GETGO ROLLING W1 MI1; HYDR-3366 PO; HYDR-3583 PO; LISI10TA3 PO; MULTTAB67 PO; MUPI2OIN TOPICAL; NYST100084 TOPICAL; OMEG600C2 PO; PREV30CA11 PO; TRIA.1%T TOPICAL; WALKER ROLLING; [UNRECOGNIZED DRUG - OTHER] TOP
--- NOTE | 2016-07-22 18:19 | EKG ---
Date Performed: 07/22/2016 Time Performed: 09:46:44 PTAGE: 51 years EKG: Sinus rhythm LOW QRS VOLTAGE IN PRECORDIAL LEADS IS NEW SINCE PRIOR TRACING BORDERLINE ECG PREVIOUS TRACING : 12/03/1995 14.34 DOCTOR: Dheeraj Rodriguez Interpretating Date/Time 07/22/2016 18:18:49
== END ==
LOC: CPRE 09:26
PROVIDERS: ATTEND Neurological Surgery
DX: Z01.810 Encounter for preprocedural cardiovascular examination (principal); R94.31 Abnormal electrocardiogram [ECG] [EKG]
CPT/HCPCS: 93005

== ENCOUNTER 2016-08-08 14:41 | Inpatient (IN) | payer OTHER ==
[~2016-08-08] VITALS: Ht 170.2 cm; Wt 144.2 kg
[~2016-08-08 14:41] MED LIST changes: +CYCL1TAB29 PO; +FLAX10006 PO; +HYDR-3366 PO
[2016-08-08 14:46] VITALS: BP 133/57; PULSE 129; RESP 24; TEMP 102.8; O2SAT 95
[2016-08-08] MEDS ORDERED: SODIUM CHLOR 0.9% 1000 ML INJ 1,000 ML IV ONE ×3 (15:14)
[2016-08-08] MEDS ORDERED: SODIUM CHLOR 0.9% 1000 ML INJ 900 ML IV ONE (15:14)
[2016-08-08] MEDS ORDERED: ACETAMINOPHEN 325 MG TAB PO ONE (15:15)
[2016-08-08] MEDS ORDERED: HYDROmorphone HCL PF 1 MG/ML VIAL IV ONE (15:15)
[2016-08-08] MEDS ORDERED: ONDANSETRON HCL 4 MG/2 ML VIAL IV ONE (15:15)
[2016-08-08] MEDS ORDERED: CLINDAMYCIN INJ 900 MG in SODIUM CHLORIDE 0.9% INJ 100 ML IV STA (15:16)
[2016-08-08] MEDS ORDERED: VANCOMYCIN INJ 1,000 MG in SODIUM CHLOR 0.9% 250 ML INJ 250 ML IV STA (15:16)
[2016-08-08] MEDS ORDERED: PIPERACIL-TAZO 4.5 GM PREMIX 100 ML IV STA (15:16)
--- NOTE | 2016-08-08 15:24 | PD ---
HPI Chief Complaint: Pain: Acute or Chronic Time Seen by Provider: 14:47 Travel History International Travel<30 days: No Contact w/Intl Traveler<30days: No Traveled to known affect area: No History of Present Illness HPI The patient is a 51-year-old female who presents to the emergency department via EMS for back pain and fever. The patient states she underwent surgery by the neurosurgeon, Dr. Monk, July 25. The patient states she has been doing well in rehabilitation except for some chronic pain until this morning when she developed a fever. The patient's temperature was noted to be 102.8. The patient does complain of lower back pain with some drainage from the wound, on the wound dressings. The patient states she is unable to see the actual wound, however, the nurses at any change in her bandages state the patient has had some brown to yellow drainage. The patient denies any headache , sore throat, nasal congestion, cough, nausea, vomiting, abdominal pain, dysuria, or myalgias/arthralgias. The patient denies any acute focal deficits or lower extremities and denies any incontinence. Symptoms are moderate, possibly exacerbated by recent surgery, and there are no current alleviating factors. PFSH Past Medical History Depression: Yes Cancer: No Cardiovascular Problems: No Diabetes: No Endocrine: No Gastrointestinal Disorders: Yes (REFLUX) GERD: Yes Genitourinary: Yes (URINARY INCONTINENCE) Hepatitis: No Hiatal Hernia: No Hypertension: Yes Immune Disorder: No Musculoskeletal: Yes (BULGING AND HERNIATED DISC, OA) Neurologic: Yes (PAIN BILATERAL LEGS, WEAKNESS AND STIFFNESS BLE, HERNIATED DISC) Psychiatric: Yes (DEPRESSION) Reproductive: No Respiratory: Yes (SLEEP APNEA) Thyroid Disease: No ?: Not LMP: 08/04/16 Past Surgical History Abdominal Surgery: No AICD: No Cardiac Surgery: No Ear Surgery: No Endocrine Surgery: No Eye Surgery: No Genitourinary Surgery: No Gynecologic Surgery: No Joint Replacement: No Neurologic Surgery: Yes (LAMINECTOMY L4-L5, ANTERIOR 3 LEVEL FUSION IN NECK) Oral Surgery: Yes (T&A) Pacemaker: No Thoracic Surgery: No Other Surgery: Yes Social History Alcohol Use: Yes (OCCASIONAL) Tobacco Use: No Substance Use: No Allergies-Medications (Allergen,Severity, Reaction): Coded Allergies: Prednisone (Verified Adverse Reaction, Intermediate, Restlessness, 08/08/16) Reported Meds & Prescriptions Reported Meds & Active Scripts Active [place] (Hydrocodone-Acetaminophen) 10-325 Mg Tab 1 Tab PO Q4H PRN Flexeril (Cyclobenzaprine HCl) 10 Mg Tab 10 Mg PO TID Prevacid (Lansoprazole) 30 Mg Capdr 30 Mg PO DAILY Lisinopril 10 Mg Tab 10 Mg PO DAILY Reported Flaxseed Oil (Flaxseed (Linseed)) 1,000 Mg Cap 1,000 Mg PO DAILY Gabapentin 300 Mg Cap 300 Mg PO HS Gabapentin 100 Mg Cap 200 Mg PO DAILY Multiple Vitamin 1 Tab 1 Tab PO DAILY Triamcinolone Topical (Triamcinolone Acetonide) 0.1% Cream 1 Applic TOPICAL ONCE Cymbalta DR (Duloxetine HCl) 30 Mg Capdr 30 Mg PO DAILY Review of Systems Except as stated in HPI: all other systems reviewed are Neg General / Constitutional: Positive: Fever, Chills Cardiovascular: No: Chest Pain or Discomfort Respiratory: No: Shortness of Breath Gastrointestinal: No: Nausea, Vomiting, Diarrhea, Abdominal Pain Genitourinary: No: Dysuria, Incontinence Musculoskeletal: Positive: Pain, No: Myalgias, Arthralgias Neurologic: No: Dizziness Physical Exam Narrative GENERAL: Awake, alert, pleasant 31-year-old female who appears her stated age is in no acute respiratory distress. SKIN: Skin is warm, diaphoretic across the forehead and neck. HEAD: Atraumatic. Normocephalic. EYES: No injection or drainage. ENT: No nasal bleeding or discharge. Mucous membranes pink and moist. NECK: Trachea midline. No JVD. CARDIOVASCULAR: Regular, tachycardic with a heart rate in the 120s. RESPIRATORY: No accessory muscle use. Clear to auscultation. Breath sounds equal bilaterally. GASTROINTESTINAL: Abdomen soft, non-tender, nondistended. Obese, nontender. No rebound tenderness. Back: The patient has an incisional wound on the mid lumbar region with ady in place. Dressing was removed, does reveal brown to reddish drainage, no palpable abscess. No drainage expressed with palpation of surrounding tissue. MUSCULOSKELETAL: No obvious deformities. No clubbing. No cyanosis. No edema. NEUROLOGICAL: Awake and alert. No obvious cranial nerve deficits. Motor grossly within normal limits. Normal speech. PSYCHIATRIC: Appropriate mood and affect; insight and judgment normal. Data Data Last Documented VS Vital Signs Date Time Temp Pulse Resp B/P Pulse Ox O2 Delivery O2 Flow Rate FiO2 08/08/16 16:55 97 Nasal Cannula 2 08/08/16 16:55 18 08/08/16 14:52 129 08/08/16 14:46 102.8 133/57 Orders Electrocardiogram (08/08/16 15:14) Complete Blood Count With Diff (08/08/16 15:14) Comprehensive Metabolic Panel (08/08/16 15:14) Lactic Acid Sepsis Protocol (08/08/16 15:14) Urinalysis - C+S If Indicated (08/08/16 15:14) Influenzae A/B Antigen (08/08/16 15:14) Blood Culture (08/08/16 15:14) Chest, Single Ap (08/08/16 15:14) Blood Glucose (08/08/16 15:14) Ecg Monitoring (08/08/16 15:14) Iv Access Insert/Monitor (08/08/16 15:14) Oximetry (08/08/16 15:14) Oxygen Administration (08/08/16 15:14) Acetaminophen (Tylenol) (08/08/16 15:15) Hydromorphone Pf Inj (Dilaudid Pf Inj) (08/08/16 15:15) Ondansetron Inj (Zofran Inj) (08/08/16 15:15) Sodium Chlor 0.9% 1000 Ml Inj (Ns 1000 M (08/08/16 15:14) Sodium Chlor 0.9% 1000 Ml Inj (Ns 1000 M (08/08/16 15:14) Sodium Chlor 0.9% 1000 Ml Inj (Ns 1000 M (08/08/16 15:14) Sodium Chlor 0.9% 1000 Ml Inj (Ns 1000 M (08/08/16 15:14) Piperacil-Tazo 4.5 Gm Premix (Zosyn 4.5 (08/08/16 15:16) Clindamycin Inj (Cleocin Inj) (08/08/16 15:16) Vancomycin Inj (Vancomycin Inj) (08/08/16 15:16) Chest, Pa & Lat (08/08/16 17:51) Wound Culture And Gram Stain (08/08/16 18:11) Admit Order (Ed Use Only) (08/08/16 18:51) Mri L Spine W/O Contrast (08/08/16 ) Labs Laboratory Tests Test 08/08/16 08/08/16 15:30 17:05 White Blood Count 18.1 TH/MM3 Red Blood Count 3.79 MIL/MM3 Hemoglobin 11.7 GM/DL Hematocrit 34.2 % Mean Corpuscular Volume 90.3 FL Mean Corpuscular Hemoglobin 30.9 PG Mean Corpuscular Hemoglobin 34.2 % Concent Red Cell Distribution Width 14.5 % Platelet Count 356 TH/MM3 Mean Platelet Volume 7.3 FL Neutrophils (%) (Auto) 88.4 % Lymphocytes (%) (Auto) 4.8 % Monocytes (%) (Auto) 6.4 % Eosinophils (%) (Auto) 0.2 % Basophils (%) (Auto) 0.2 % Neutrophils # (Auto) 16.0 TH/MM3 Lymphocytes # (Auto) 0.9 TH/MM3 Monocytes # (Auto) 1.2 TH/MM3 Eosinophils # (Auto) 0.0 TH/MM3 Basophils # (Auto) 0.0 TH/MM3 CBC Comment DIFF FINAL Differential Comment Sodium Level 135 MEQ/L Potassium Level 4.0 MEQ/L Chloride Level 99 MEQ/L Carbon Dioxide Level 26.6 MEQ/L Anion Gap 9 MEQ/L Blood Urea Nitrogen 8 MG/DL Creatinine 0.98 MG/DL Estimat Glomerular Filtration 60 ML/MIN Rate Random Glucose 113 MG/DL Lactic Acid Level 2.2 mmol/L Calcium Level 8.5 MG/DL Total Bilirubin 0.4 MG/DL Aspartate Amino Transf 25 U/L (AST/SGOT) Alanine Aminotransferase 36 U/L (ALT/SGPT) Alkaline Phosphatase 92 U/L Total Protein 6.7 GM/DL Albumin 3.2 GM/DL Urine Color YELLOW Urine Turbidity CLEAR Urine pH 7.5 Urine Specific [place] 1.016 Urine Protein NEG mg/dL Urine Glucose (UA) NEG mg/dL Urine Ketones NEG mg/dL Urine Occult Blood MOD Urine Nitrite NEG Urine Bilirubin NEG Urine Urobilinogen LESS THAN 2.0 MG/DL Urine Leukocyte Esterase SMALL Urine RBC LESS THAN 1 /hpf Urine WBC 2 /hpf Urine Squamous Epithelial 4 /hpf Cells Urine Mucus FEW /lpf Microscopic Urinalysis Comment CATH-CULT NOT IND MDM Medical Decision Making Medical Screen Exam Complete: Yes Emergency Medical Condition: Yes Medical Record Reviewed: Yes Differential Diagnosis Differential diagnosis includes postoperative wound infection, postop abscess, epidural abscess, influenza, sepsis, UTI, pneumonia. Narrative Course IV was established, labs are drawn and sent, and the patient was placed on cardiac telemetry monitoring and continuous pulse oximetry monitoring. EKG was ordered and interpreted. The patient was administered Tylenol, IV fluids, Dilaudid, and Zofran. Blood cultures and lactic gas were sent to lab and then the patient was administered Zosyn, vancomycin, and clindamycin. A call was placed to Dr. Monk at 3:21 PM. I had a discussion with Dr. Monk at 3:22 PM who suggested further workup for possible infection, hold on MRI. Diagnosis Primary Impression: Epidural abscess Admitting Information Admitting Physician Requests: Admit Condition: Stable Chauncey Burr MD Aug 08, 2016 15:24
--- NOTE | 2016-08-08 16:02 | RADRPT ---
EXAM DATE/TIME: 08/08/2016 15:20 [facility] COMPARISON: No previous studies available for comparison. INDICATIONS : Fever and shortness of breath. MEDICAL HISTORY : None. SURGICAL HISTORY : None. ENCOUNTER: Initial ACUITY: 1 day PAIN SCORE: 0/10 LOCATION: Chest FINDINGS: There is elevation of the right hemidiaphragm. The left lung is clear. Heart and pulmonary vascular ity are normal. Portions of the bony skeleton visualized are unremarkable. CONCLUSION: Elevation of right hemidiaphragm. A good PA and lateral chest may be of benefit to e xcluded infiltrate in that right base. Philip Reaves MD FACR on August 08, 2016 at 15:59 Board Certified Radiologist. This report was verified electronically.
[2016-08-08 16:48] LABS: BASOPHIL % 0.2 % (0.0-2.0); EOSINOPHIL % 0.2 % (0.0-4.0); HEMATOCRIT 34.2 % (35.0-46.0); HEMO FLAGS DIFF FINAL; LYMPH % 4.8 % (9.0-44.0); LYMPHOCYTE # 0.9 TH/MM3 (1.0-4.8); MEAN CELL VOLUME 90.3 FL (80.0-100.0); MEAN CORPUSCULAR HEMOGLOBIN 30.9 PG (27.0-34.0); MEAN CORPUSCULAR HGB CONC 34.2 % (32.0-36.0); MONO % 6.4 % (0.0-8.0); NEUT % 88.4 % (16.0-70.0); PLATELET COUNT 356 TH/MM3 (150-450); RED BLOOD COUNT 3.79 MIL/MM3 (4.00-5.30); RED CELL DISTRIBUTION WIDTH 14.5 % (11.6-17.2); WHITE BLOOD COUNT 18.1 TH/MM3 (4.0-11.0)
[2016-08-08 16:55] VITALS: RESP 18; O2SAT 97
[2016-08-08 17:05] LABS: ANION GAP 9 MEQ/L (5-15); AST (GOT) 25 U/L (15-37); BICARBONATE 26.6 MEQ/L (21.0-32.0); BLOOD UREA NITROGEN 8 MG/DL (7-18); CHLORIDE 99 MEQ/L (98-107); GLOMERULAR FILTRATION RATE 60 ML/MIN (>89); SODIUM (NA) 135 MEQ/L (136-145)
[2016-08-08 17:09] LABS: ALKALINE PHOSPHATASE 92 U/L (45-117); ALT (GPT) 36 U/L (10-53); TOTAL BILIRUBIN ADULT 0.4 MG/DL (0.2-1.0)
--- NOTE | 2016-08-08 17:52 | PD ---
Physical Exam Narrative Patient was seen by ED physician and signed out to me. Data Data Last Documented VS Vital Signs Date Time Temp Pulse Resp B/P Pulse Ox O2 Delivery O2 Flow Rate FiO2 08/08/16 16:55 97 Nasal Cannula 2 08/08/16 16:55 18 08/08/16 14:52 129 08/08/16 14:46 102.8 133/57 Orders Electrocardiogram (08/08/16 15:14) Complete Blood Count With Diff (08/08/16 15:14) Comprehensive Metabolic Panel (08/08/16 15:14) Lactic Acid Sepsis Protocol (08/08/16 15:14) Urinalysis - C+S If Indicated (08/08/16 15:14) Influenzae A/B Antigen (08/08/16 15:14) Blood Culture (08/08/16 15:14) Chest, Single Ap (08/08/16 15:14) Blood Glucose (08/08/16 15:14) Ecg Monitoring (08/08/16 15:14) Iv Access Insert/Monitor (08/08/16 15:14) Oximetry (08/08/16 15:14) Oxygen Administration (08/08/16 15:14) Acetaminophen (Tylenol) (08/08/16 15:15) Hydromorphone Pf Inj (Dilaudid Pf Inj) (08/08/16 15:15) Ondansetron Inj (Zofran Inj) (08/08/16 15:15) Sodium Chlor 0.9% 1000 Ml Inj (Ns 1000 M (08/08/16 15:14) Sodium Chlor 0.9% 1000 Ml Inj (Ns 1000 M (08/08/16 15:14) Sodium Chlor 0.9% 1000 Ml Inj (Ns 1000 M (08/08/16 15:14) Sodium Chlor 0.9% 1000 Ml Inj (Ns 1000 M (08/08/16 15:14) Piperacil-Tazo 4.5 Gm Premix (Zosyn 4.5 (08/08/16 15:16) Clindamycin Inj (Cleocin Inj) (08/08/16 15:16) Vancomycin Inj (Vancomycin Inj) (08/08/16 15:16) Chest, Pa & Lat (08/08/16 17:51) Mri L Spine W&W/O Contrast (08/08/16 ) Wound Culture And Gram Stain (08/08/16 18:11) Admit Order (Ed Use Only) (08/08/16 18:51) Labs Laboratory Tests Test 08/08/16 08/08/16 15:30 17:05 White Blood Count 18.1 TH/MM3 Red Blood Count 3.79 MIL/MM3 Hemoglobin 11.7 GM/DL Hematocrit 34.2 % Mean Corpuscular Volume 90.3 FL Mean Corpuscular Hemoglobin 30.9 PG Mean Corpuscular Hemoglobin 34.2 % Concent Red Cell Distribution Width 14.5 % Platelet Count 356 TH/MM3 Mean Platelet Volume 7.3 FL Neutrophils (%) (Auto) 88.4 % Lymphocytes (%) (Auto) 4.8 % Monocytes (%) (Auto) 6.4 % Eosinophils (%) (Auto) 0.2 % Basophils (%) (Auto) 0.2 % Neutrophils # (Auto) 16.0 TH/MM3 Lymphocytes # (Auto) 0.9 TH/MM3 Monocytes # (Auto) 1.2 TH/MM3 Eosinophils # (Auto) 0.0 TH/MM3 Basophils # (Auto) 0.0 TH/MM3 CBC Comment DIFF FINAL Differential Comment Sodium Level 135 MEQ/L Potassium Level 4.0 MEQ/L Chloride Level 99 MEQ/L Carbon Dioxide Level 26.6 MEQ/L Anion Gap 9 MEQ/L Blood Urea Nitrogen 8 MG/DL Creatinine 0.98 MG/DL Estimat Glomerular Filtration 60 ML/MIN Rate Random Glucose 113 MG/DL Lactic Acid Level 2.2 mmol/L Calcium Level 8.5 MG/DL Total Bilirubin 0.4 MG/DL Aspartate Amino Transf 25 U/L (AST/SGOT) Alanine Aminotransferase 36 U/L (ALT/SGPT) Alkaline Phosphatase 92 U/L Total Protein 6.7 GM/DL Albumin 3.2 GM/DL Urine Color YELLOW Urine Turbidity CLEAR Urine pH 7.5 Urine Specific [place] 1.016 Urine Protein NEG mg/dL Urine Glucose (UA) NEG mg/dL Urine Ketones NEG mg/dL Urine Occult Blood MOD Urine Nitrite NEG Urine Bilirubin NEG Urine Urobilinogen LESS THAN 2.0 MG/DL Urine Leukocyte Esterase SMALL Urine RBC LESS THAN 1 /hpf Urine WBC 2 /hpf Urine Squamous Epithelial 4 /hpf Cells Urine Mucus FEW /lpf Microscopic Urinalysis Comment CATH-CULT NOT IND MDM Supervised Visit with ELGIN: No Interpretation(s) Last Impressions Chest X-Ray 08/08/16 1514 Signed Impressions: Service Date/Time: Monday, August 08, 2016 15:20 - CONCLUSION: Elevation of right hemidiaphragm. A good PA and lateral chest may be of benefit to excluded infiltrate in that right base. Philip Reaves MD FACR 1751 PM.CBC WBC 18.1. Hemoglobin 11.7 hematocrit 34.2. 88 neutrophil. Sodium 135. Lactic acid 2.2. Influenza AB antigen negative. UA is negative. Condition: Stable Chevy Romeo MD Aug 08, 2016 17:52
[2016-08-08 17:55] LABS: BLOOD, URINE MOD (NEG); GLUCOSE,URINE NEG (NEG); KETONE, URINE NEG (NEG); MUCUS URINE FEW /lpf (OCC); NITRITE,URINE NEG (NEG); PH, URINE 7.5 (5.0-8.5); SQUAMOUS EPITHELIAL CELL URINE 4 /hpf (0-5); URINE COLOR YELLOW (YELLW/STRAW)
[2016-08-08 18:12] LABS: COMMENT (UR) CATH-CULT NOT IND; CULTURE IF INDICATED CATH CULTURE NOT IND
[2016-08-08 18:25] LABS: LACTIC ACID GHOST NOT REPORTABLE
--- NOTE | 2016-08-08 18:51 | RADRPT ---
EXAM DATE/TIME: 08/08/2016 18:18 [facility] COMPARISON: No previous studies available for comparison. INDICATIONS : SOB, Fever MEDICAL HISTORY : None. SURGICAL HISTORY : Cervical Fusion, Lumbar Fusion. ENCOUNTER: Initial ACUITY: 1 day PAIN SCORE: 0/10 LOCATION: chest FINDINGS: PA and lateral views of the chest demonstrate the lungs to be symmetrically aerated without evidence of mass, infiltrate or effusion. The cardiomediastinal contours are unremarkable. Anterior fusion pl ate is identified in the lower cervical spine. Osseous structures are otherwise intact. CONCLUSION: No acute disease. Eriberto Renae MD on August 08, 2016 at 18:49 Board Certified Radiologist. This report was verified electronically.
[2016-08-08] MEDS ORDERED: ONDANSETRON HCL 4 MG/2 ML VIAL IV PRN (19:30)
[2016-08-08] MEDS ORDERED: SODIUM CHLORIDE 0.9% FLUSH 5 ML FLUSH IVF PRN (19:30)
--- NOTE | 2016-08-08 19:41 | HHI.HP ---
HPI Service Family Medicine Primary Care Physician Juan Antonio Nava MD Admission Diagnosis cellulitis. Status post laminectomy Diagnoses: International Travel<30 Days: No Contact w/Intl Traveler<30days: No Known Affected Area: No History of Present Illness Patient is a 51-year-old female with a PMH significant for sleep apnea, GERD, HTN. Admitted due to serosanguineous drainage from lumbar incision from a L3/4 and L4/5 laminectomy and interbody fusion with Dr. Monk on 07/25/16. She originally presented to the ED due to uncontrolled pain. After this surgery patient was doing well and was at rehabilitation at [facility] where she was participating in PT and OT. Her pain had been well controlled until last night when she received her pain medication 3 hours late. This morning she also reports getting her pain medication 1 hour late. Since then she complained of uncontrolled pain despite pain medications. She also reported fevers during the day with a high of 103. Patient's biggest concern was pain control and SOB that required prolonged use of her CPAP. Her reports her face being red and feeling sweaty. Denies any nausea/vomiting, abdominal pain, dysuria, chest pain, loss of appetite. Patient was unaware of back draining until her presentation in the ED today. Review of Systems Constitutional: COMPLAINS OF: Fever, DENIES: Change in appetite Eyes: DENIES: Blurred vision Ears, nose, mouth, throat: DENIES: Throat pain, Running Nose Respiratory: COMPLAINS OF: Apneas, Shortness of breath, DENIES: Cough Cardiovascular: COMPLAINS OF: Lower Extremity Edema, DENIES: Chest pain Gastrointestinal: DENIES: Abdominal pain, Constipation, Diarrhea, Nausea, Vomiting Genitourinary: DENIES: Dysuria Musculoskeletal: COMPLAINS OF: Back pain Integumentary: DENIES: Rash Neurologic: COMPLAINS OF: Paresthesias (anterior shins bilaterally), DENIES: Headache Past Family Social History Past Medical History Sleep apnea-on CPAP HTN Depression GERD Past Surgical History L3 4, L4 5 laminectomy and fusion July 2016 Anterior cervical (C4-7) interbody fusion with C4-7 cervical plate Reported Medications Reported Meds & Active Scripts Active [place] (Hydrocodone-Acetaminophen) 10-325 Mg Tab 1 Tab PO Q4H PRN Flexeril (Cyclobenzaprine HCl) 10 Mg Tab 10 Mg PO TID Prevacid (Lansoprazole) 30 Mg Capdr 30 Mg PO DAILY Lisinopril 10 Mg Tab 10 Mg PO DAILY Reported Flaxseed Oil (Flaxseed (Linseed)) 1,000 Mg Cap 1,000 Mg PO DAILY Gabapentin 300 Mg Cap 300 Mg PO HS Gabapentin 100 Mg Cap 200 Mg PO DAILY Multiple Vitamin 1 Tab 1 Tab PO DAILY Triamcinolone Topical (Triamcinolone Acetonide) 0.1% Cream 1 Applic TOPICAL ONCE Cymbalta DR (Duloxetine HCl) 30 Mg Capdr 30 Mg PO DAILY Allergies: Coded Allergies: Prednisone (Verified Adverse Reaction, Intermediate, Restlessness, 08/08/16) Family History Father: back problems and HTN Mother: cancer Social History Lives with Tobacco: denies Alcohol: none Illicit: denies Physical Exam Vital Signs Vital Signs Date Time Temp Pulse Resp B/P Pulse Ox O2 Delivery O2 Flow Rate FiO2 08/08/16 16:55 97 Nasal Cannula 2 08/08/16 16:55 18 97 Nasal Cannula 2 08/08/16 16:53 18 08/08/16 14:52 129 24 08/08/16 14:46 102.8 129 24 133/57 95 Physical Exam GENERAL: This is a well-nourished, well-developed patient, laying in bed in moderate distress due to pain. SKIN: Increased erythema of face diffusely. Midline lumbar incision with ady present. Serosanguineous drainage most prominent at the lower aspect of the incision. Incision pad and bed sheets covered with drainage. EYES: Pupils equal round and reactive. Extraocular motions intact. No scleral icterus. No injection or drainage. ENT: Nose without bleeding, purulent drainage. Throat without erythema, tonsillar hypertrophy or exudate. NECK: No lymphadenopathy. CARDIOVASCULAR: Distant heart sounds but with regular rate and rhythm without obvious murmurs, gallops, rubs. RESPIRATORY: Clear to auscultation. Breath sounds equal bilaterally. No wheezes , rales, or rhonchi. GASTROINTESTINAL: Abdomen soft, non-tender, nondistended. No hepato-splenomegaly , or palpable masses. No guarding. MUSCULOSKELETAL: Extremities without clubbing, cyanosis. 2+ pitting edema up to mid aldrich. No calf tenderness. NEUROLOGICAL: Awake and alert. Motor grossly within normal limits. Normal speech. Laboratory Laboratory Tests Test 08/08/16 08/08/16 15:30 17:05 White Blood Count 18.1 Red Blood Count 3.79 Hemoglobin 11.7 Hematocrit 34.2 Mean Corpuscular Volume 90.3 Mean Corpuscular Hemoglobin 30.9 Mean Corpuscular Hemoglobin 34.2 Concent Red Cell Distribution Width 14.5 Platelet Count 356 Mean Platelet Volume 7.3 Neutrophils (%) (Auto) 88.4 Lymphocytes (%) (Auto) 4.8 Monocytes (%) (Auto) 6.4 Eosinophils (%) (Auto) 0.2 Basophils (%) (Auto) 0.2 Neutrophils # (Auto) 16.0 Lymphocytes # (Auto) 0.9 Monocytes # (Auto) 1.2 Eosinophils # (Auto) 0.0 Basophils # (Auto) 0.0 CBC Comment DIFF FINAL Differential Comment Sodium Level 135 Potassium Level 4.0 Chloride Level 99 Carbon Dioxide Level 26.6 Anion Gap 9 Blood Urea Nitrogen 8 Creatinine 0.98 Estimat Glomerular Filtration 60 Rate Random Glucose 113 Lactic Acid Level 2.2 Calcium Level 8.5 Total Bilirubin 0.4 Aspartate Amino Transf 25 (AST/SGOT) Alanine Aminotransferase 36 (ALT/SGPT) Alkaline Phosphatase 92 Total Protein 6.7 Albumin 3.2 Urine Color YELLOW Urine Turbidity CLEAR Urine pH 7.5 Urine Specific [place] 1.016 Urine Protein NEG Urine Glucose (UA) NEG Urine Ketones NEG Urine Occult Blood MOD Urine Nitrite NEG Urine Bilirubin NEG Urine Urobilinogen LESS THAN 2.0 Urine Leukocyte Esterase SMALL Urine RBC LESS THAN 1 Urine WBC 2 Urine Squamous Epithelial 4 Cells Urine Mucus FEW Microscopic Urinalysis Comment CATH-CULT NOT IND Date/Time Procedure Status Source Growth 08/08/16 18:20 Gram Stain Received Wound Back Pending 08/08/16 18:20 Wound Culture Received Wound Back Pending 08/08/16 15:35 Aerobic Blood Culture Received Blood Peripheral Pending 08/08/16 15:35 Anaerobic Blood Culture Received Blood Peripheral Pending 08/08/16 15:30 Influenza Types A,B Antigen ([facility]) - Final Complete Nasal Aspirate NEGATIVE FOR FLU A AND B ANTIGEN.... Result Diagram: 08/08/16 1530 08/08/16 1530 Imaging Last Impressions Chest X-Ray 08/08/16 1751 Signed Impressions: Service Date/Time: Monday, August 08, 2016 18:18 - CONCLUSION: No acute disease. Eriberto Renae MD Lumbar Spine MRI 08/08/16 0000 Signed Impressions: Service Date/Time: Monday, August 08, 2016 20:26 - CONCLUSION: Large postoperative complex fluid collection following right-sided laminectomy and fusion from L3-L5 which is compatible with the clinical suspicion of a large postoperative abscess. Small epidural component is seen posterior to L4 which is causing moderate compression of the thecal sac. Developing bone marrow edema in L3, L4 and L5 which may be reactive or indicate developing osteomyelitis. Eriberto Renae MD Assessment and Plan Assessment and Plan 51-year-old female with a PMH significant for sleep apnea, GERD, HTN. Admitted for postoperative epidural abscess Code Status Full Problem List: (1) Epidural abscess Status: Acute Plan: Postop laminectomy on 07/25/16. Patient was initially doing well but then developed uncontrolled pain, fevers, serosanguineous drainage from incision site on the day of this admission. Met sepsis criteria on admission with fever, elevated pulse, leukocytosis. Physical exam significant for active drainage from site. -Leukocytosis present but now with resolved lactic acidosis EKG plus Troponin 1 unremarkable -UA, CXR unremarkable for other etiologies of infection Blood and wound cultures pending -Monitor I&O Neurosurgery consult: Appreciate recommendations * Neuro checks * Patient's neurological exam remained stable without evidence of radiculopathy or cauda equina syndrome * May require further opening of the wound site and drainage Images: * Lumbar spine MRI: Large postoperative complex fluid collection following right -sided laminectomy and fusion from L3/L5 which is compatible with the clinical suspicion of a large postoperative abscess. Small epidural component is seen posterior to L4 which is causing moderate compression of the thecal sac. Developing bone marrow edema in L3, L4 and L5 which may be reactive or indicate developing osteomyelitis Medications: * Zosyn (3/3 * Vancomycin (3/3 * Clindamycin (3/3) * Continue home gabapentin dosing * Continue home duloxetine (2) Sepsis Status: Acute Plan: See plan above (3) Nutrition, metabolism, and development symptoms Status: Acute Plan: Diet: NPO at midnight in anticipation for possible operative treatment Fluids: NS at 125, received 4 L boluses in ED Electrolytes: Mild hyponatremia but otherwise unremarkable DVT prophylaxis: SCDs, chemical anticoagulation on hold due to possible operative treatment GI prophylaxis: Continue home Protonix Chronic conditions: * Sleep apnea: Instructed to bring in home CPAP machine. Ordered BiPAP overnight while in hospital * HTN: Continue home lisinopril Physician Certification 2 Midnight Certification Type: Admission for Inpatient Services Order for Inpatient Services The services are ordered in accordance with Medicare regulations or non- Medicare payer requirements, as applicable. In the case of services not specified as inpatient-only, they are appropriately provided as inpatient services in accordance with the 2-midnight benchmark. Estimated LOS (days): 3 days is the estimated time the patient will need to remain in the hospital, assuming treatment plan goals are met and no additional complications. Post-Hospital Plan: Inpatient Rehab Clair Phan MD R2 Aug 08, 2016 19:41
[2016-08-08] MEDS ORDERED: ACETAMINOPHEN/HYDROcodone 325 MG/10 MG TAB PO PRN (20:00)
[2016-08-08] MEDS ORDERED: HYDROmorphone HCL PF 1 MG/ML VIAL IV PUSH STA (20:11)
[2016-08-08] MEDS ORDERED: ONDANSETRON HCL 4 MG/2 ML VIAL IV PUSH ONE (20:15)
[2016-08-08] MEDS ORDERED: HYDROmorphone HCL PF 1 MG/ML VIAL IV PUSH ONE (20:15)
[2016-08-08] MEDS ORDERED: ONDANSETRON HCL 4 MG/2 ML VIAL IVP PRN (20:15)
[2016-08-08] MEDS ORDERED: NALOXONE HCL 0.4 MG/ML AMP IV PRN ×2 (20:15→20:30)
[2016-08-08] MEDS ORDERED: SODIUM CHLORIDE 0.9% FLUSH 5 ML FLUSH FLUSH PRN (20:15)
[2016-08-08] MEDS ORDERED: ACETAMINOPHEN 325 MG TAB PO PRN (20:30)
[2016-08-08] MEDS ORDERED: ENALAPRILAT 1.25 MG/ML VIAL IV PRN (20:30)
[2016-08-08] MEDS ORDERED: Vancomycin Consult Pharmacy 1 EA OTHER SCH (20:30)
[2016-08-08] MEDS ORDERED: ACETAMINOPHEN/HYDROcodone 325 MG/5 MG TAB PO PRN (20:30)
[2016-08-08] MEDS ORDERED: SODIUM CHLORIDE 0.9% FLUSH 5 ML FLUSH IVF SCH (21:00)
[2016-08-08 21:19] VITALS: BP 120/56; PULSE 108; RESP 18; TEMP 100.6; O2SAT 97
[2016-08-08] MEDS: SODIUM CHLOR 0.9% 1000 ML INJ 1,000 ML IV SCH (21:30)
[2016-08-08] MEDS: SODIUM CHLORIDE 0.9% FLUSH 5 ML FLUSH FLUSH SCH (21:31)
[2016-08-08] MEDS: GABAPENTIN 300 MG CAP PO SCH (21:31)
--- NOTE | 2016-08-08 22:01 | RADRPT ---
EXAM DATE/TIME: 08/08/2016 20:26 [place] COMPARISON: No previous studies available for comparison. INDICATIONS : Abscess. MEDICAL HISTORY : Hypertension. SURGICAL HISTORY : Fusion, lumbar. Fusion, cervical. ENCOUNTER: Initial ACUITY: 1 day PAIN SCORE: 9/10 LOCATION: Bilateral lower back region. TECHNIQUE: Multiplanar multisequence MRI of the lumbar spine was performed without contrast. FINDINGS: Postsurgical changes are identified in the lumbar spine. The patient has undergone a right-sided lami nectomy and right-sided fusion from L3-L5. A large complex fluid collection measuring 14.8 x 10.6 x 7.3 cm in size is identified extending from the laminectomy defect posteriorly into the paraspinal and subcutaneous tissues. Within the L3 winston ctomy defect there is a small hypointense structure measuring 1 cm located along the epidural space w hich may represent small bone fragment. The fluid surrounds this structure and also partially encases the thecal sac. An anterior epidural fluid collection is seen along the posterior cortex of L4. This also appears con tiguous with the larger complex collection in the laminectomy defect. There is moderate compression o f the thecal sac at this level. There is developing bone marrow edema along the inferior aspect of L3, throughout L4 and along the [place] perior aspect of L5. Moderate central disc protrusions are identified at T12-L1 and L2-3. There is disc osteophyte complex at L3-4 and L4-5. CONCLUSION: Large postoperative complex fluid collection following right-sided laminectomy and fusion from L3-L5 which is compatible with the clinical suspicion of a large postoperative abscess. Small epidural component is seen posterior to L4 which is causing moderate compression of the thecal sac. Developing bone marrow edema in L3, L4 and L5 which may be reactive or indicate developing osteomyeli tis. Eriberto Renae MD on August 08, 2016 at 21:41 Board Certified Radiologist. This report was verified electronically.
[2016-08-08] MEDS ORDERED: CLINDAMYCIN INJ 600 MG in SODIUM CHLORIDE 0.9% INJ 100 ML IV SCH (23:00)
--- NOTE | 2016-08-08 23:24 | PD.CONS ---
History of Present Illness Service Neurosurgery Consult Requested By Emergency room-Dr. Romeo Reason for Consult Postoperative wound drainage, fever Primary Care Physician Juan Antonio Nava MD Diagnoses: History of Present Illness 51-year-old female with history of chronic low back pain and 1-2 years of progressive right lower extremity numbness and weakness with a right foot drop recently underwent L3 4 and L4 5 laminectomy and interbody fusion per Dr. Monk on 07/24/16. She was discharged [facility] for inpatient rehabilitation. Patient states that she was doing recently well until this morning when she developed significant increased back and leg pain with a low- grade fever and also some drainage from the incision. She presented to [facility] emergency room this afternoon for evaluation. The case was discussed with Dr. Monk per the emergency room physician and further fever workup was initiated. The patient has subsequently undergone an MRI of the lumbar spine. She states of all her back pain still remains somewhat increased versus a past couple weeks , it is improved compared to this morning. She has some aching primarily in the right lateral hip and thigh which is new today. She states that her prior pain radiating to the primarily lateral lower extremities which she experienced prior to surgery remains improved. She does not indicate any bowel or bladder dysfunction. No abdominal pain, nausea, vomiting, diarrhea. She does complain of headache early this morning but no significant neck pain or stiffness. Review of Systems Constitutional: COMPLAINS OF: Fever, DENIES: Chills Eyes: DENIES: Blurred vision Ears, nose, mouth, throat: DENIES: Vertigo, Throat pain, Ear Pain Respiratory: COMPLAINS OF: Apneas, DENIES: Wheezing, Shortness of breath Cardiovascular: DENIES: Chest pain Gastrointestinal: DENIES: Abdominal pain, Diarrhea, Nausea, Vomiting Musculoskeletal: COMPLAINS OF: Joint pain, Muscle aches, Back pain Neurologic: COMPLAINS OF: Headache Psychiatric: DENIES: Confusion Past Family Social History Allergies: Coded Allergies: Prednisone (Verified Adverse Reaction, Intermediate, Restlessness, 08/08/16) Past Medical History Sleep apnea Chronic low back pain GERD Hypertension Denies diabetes Past Surgical History 3 level cervical discectomy and fusion 2015 L3 4, L4 5 laminectomy and fusion July 2016 Reported Medications Reported Meds & Active Scripts Active [place] (Hydrocodone-Acetaminophen) 10-325 Mg Tab 1 Tab PO Q4H PRN Flexeril (Cyclobenzaprine HCl) 10 Mg Tab 10 Mg PO TID Prevacid (Lansoprazole) 30 Mg Capdr 30 Mg PO DAILY Lisinopril 10 Mg Tab 10 Mg PO DAILY Reported Flaxseed Oil (Flaxseed (Linseed)) 1,000 Mg Cap 1,000 Mg PO DAILY Gabapentin 300 Mg Cap 300 Mg PO HS Gabapentin 100 Mg Cap 200 Mg PO DAILY Multiple Vitamin 1 Tab 1 Tab PO DAILY Triamcinolone Topical (Triamcinolone Acetonide) 0.1% Cream 1 Applic TOPICAL ONCE Cymbalta DR (Duloxetine HCl) 30 Mg Capdr 30 Mg PO DAILY Family History Positive cancer in her mother Social History Does not smoke cigarettes or drink alcohol. Lives with her Physical Exam Vital Signs Vital Signs Date Time Temp Pulse Resp B/P Pulse Ox O2 Delivery O2 Flow Rate FiO2 08/08/16 21:19 100.6 108 18 120/56 97 Nasal Cannula 2 08/08/16 16:55 97 Nasal Cannula 2 08/08/16 16:55 18 97 Nasal Cannula 2 08/08/16 16:53 18 08/08/16 14:52 129 24 08/08/16 14:46 102.8 129 24 133/57 95 Physical Exam GENERAL: Obese lady who appears moderately uncomfortable during the examination of the emergency room. SKIN: [place] in place at the lumbar midline incision. There is moderate edema and erythema around the incision site as well as significant serosanguineous drainage from the mid and lower aspects of the incision noted on the patient's dressing and bed pad. HEAD: Nontender. Atraumatic EYES: Sclerae are clear and nonicteric NECK: Supple, nontender, no meningeal signs. CARDIOVASCULAR: Regular rate RESPIRATORY: Clear, nonlabored regular. No wheezing GASTROINTESTINAL: Abdomen soft, non-tender, nondistended. No hepato-splenomegaly , or palpable masses. No guarding. MUSCULOSKELETAL: Mild to moderate distal lower extremity edema. Posterior tibial pulse 2+ bilateral. No significant hip or ankle pain. NEUROLOGICAL: Awake and alert oriented conversant and appropriate Speech clear Follow simple commands well No evidence of anxiety or depression Extraocular movements intact Facial motor movement symmetric Sensation intact light touch left lower extremity with moderate decrease in sensation light touch primarily anterior lateral right thigh which she states is chronic Strength is decreased to 0-1/5 right tibialis anterior and extensor hallucis longus with 1/5 peroneus longus and brevis, 1/5 right tibialis posterior and 2-3 /5 gastrocsoleus. Strength 5/5 throughout the left lower extremity major flexion and extension groups Laboratory Laboratory Tests Test 08/08/16 08/08/16 08/08/16 08/08/16 15:30 17:05 19:10 21:30 White Blood Count 18.1 TH/MM3 Red Blood Count 3.79 MIL/MM3 Hemoglobin 11.7 GM/DL Hematocrit 34.2 % Mean Corpuscular Volume 90.3 FL Mean Corpuscular Hemoglobin 30.9 PG Mean Corpuscular Hemoglobin 34.2 % Concent Red Cell Distribution Width 14.5 % Platelet Count 356 TH/MM3 Mean Platelet Volume 7.3 FL Neutrophils (%) (Auto) 88.4 % Lymphocytes (%) (Auto) 4.8 % Monocytes (%) (Auto) 6.4 % Eosinophils (%) (Auto) 0.2 % Basophils (%) (Auto) 0.2 % Neutrophils # (Auto) 16.0 TH/MM3 Lymphocytes # (Auto) 0.9 TH/MM3 Monocytes # (Auto) 1.2 TH/MM3 Eosinophils # (Auto) 0.0 TH/MM3 Basophils # (Auto) 0.0 TH/MM3 CBC Comment DIFF FINAL Differential Comment Sodium Level 135 MEQ/L Potassium Level 4.0 MEQ/L Chloride Level 99 MEQ/L Carbon Dioxide Level 26.6 MEQ/L Anion Gap 9 MEQ/L Blood Urea Nitrogen 8 MG/DL Creatinine 0.98 MG/DL Estimat Glomerular Filtration 60 ML/MIN Rate Random Glucose 113 MG/DL Lactic Acid Level 2.2 mmol/L 1.3 mmol/L Calcium Level 8.5 MG/DL Total Bilirubin 0.4 MG/DL Aspartate Amino Transf 25 U/L (AST/SGOT) Alanine Aminotransferase 36 U/L (ALT/SGPT) Alkaline Phosphatase 92 U/L Total Protein 6.7 GM/DL Albumin 3.2 GM/DL Urine Color YELLOW Urine Turbidity CLEAR Urine pH 7.5 Urine Specific [place] 1.016 Urine Protein NEG mg/dL Urine Glucose (UA) NEG mg/dL Urine Ketones NEG mg/dL Urine Occult Blood MOD Urine Nitrite NEG Urine Bilirubin NEG Urine Urobilinogen LESS THAN 2.0 MG/DL Urine Leukocyte Esterase SMALL Urine RBC LESS THAN 1 /hpf Urine WBC 2 /hpf Urine Squamous Epithelial 4 /hpf Cells Urine Mucus FEW /lpf Microscopic Urinalysis Comment CATH-CULT NOT IND Troponin I LESS THAN 0.02 NG/ML Laboratory Tests Test 08/08/16 08/08/16 08/08/16 08/08/16 15:30 17:05 19:10 21:30 White Blood Count 18.1 Red Blood Count 3.79 Hemoglobin 11.7 Hematocrit 34.2 Mean Corpuscular Volume 90.3 Mean Corpuscular Hemoglobin 30.9 Mean Corpuscular Hemoglobin 34.2 Concent Red Cell Distribution Width 14.5 Platelet Count 356 Mean Platelet Volume 7.3 Neutrophils (%) (Auto) 88.4 Lymphocytes (%) (Auto) 4.8 Monocytes (%) (Auto) 6.4 Eosinophils (%) (Auto) 0.2 Basophils (%) (Auto) 0.2 Neutrophils # (Auto) 16.0 Lymphocytes # (Auto) 0.9 Monocytes # (Auto) 1.2 Eosinophils # (Auto) 0.0 Basophils # (Auto) 0.0 CBC Comment DIFF FINAL Differential Comment Sodium Level 135 Potassium Level 4.0 Chloride Level 99 Carbon Dioxide Level 26.6 Anion Gap 9 Blood Urea Nitrogen 8 Creatinine 0.98 Estimat Glomerular Filtration 60 Rate Random Glucose 113 Lactic Acid Level 2.2 1.3 Calcium Level 8.5 Total Bilirubin 0.4 Aspartate Amino Transf 25 (AST/SGOT) Alanine Aminotransferase 36 (ALT/SGPT) Alkaline Phosphatase 92 Total Protein 6.7 Albumin 3.2 Urine Color YELLOW Urine Turbidity CLEAR Urine pH 7.5 Urine Specific [place] 1.016 Urine Protein NEG Urine Glucose (UA) NEG Urine Ketones NEG Urine Occult Blood MOD Urine Nitrite NEG Urine Bilirubin NEG Urine Urobilinogen LESS THAN 2.0 Urine Leukocyte Esterase SMALL Urine RBC LESS THAN 1 Urine WBC 2 Urine Squamous Epithelial 4 Cells Urine Mucus FEW Microscopic Urinalysis Comment CATH-CULT NOT IND Troponin I LESS THAN 0.02 Date/Time Procedure Status Source Growth 08/08/16 18:20 Gram Stain Received Wound Back Pending 08/08/16 18:20 Wound Culture Received Wound Back Pending 08/08/16 15:35 Aerobic Blood Culture Received Blood Peripheral Pending 08/08/16 15:35 Anaerobic Blood Culture Received Blood Peripheral Pending 08/08/16 15:30 Influenza Types A,B Antigen (KIA) - Final Complete Nasal Aspirate NEGATIVE FOR FLU A AND B ANTIGEN.... Result Diagram: 08/08/16 1530 08/08/16 1530 Imaging 08/08/2016 MRI lumbar spine images reviewed. The study reveals primarily right- sided epidural and midline subcutaneous fluid collection. Moderate compression of the thecal sac and the primarily L4 level Chest X-Ray 08/08/16 1751 Signed Impressions: Service Date/Time: Monday, August 08, 2016 18:18 - CONCLUSION: No acute disease. Eriberto Renae MD Lumbar Spine MRI 08/08/16 0000 Signed Impressions: Service Date/Time: Monday, August 08, 2016 20:26 - CONCLUSION: Large postoperative complex fluid collection following right-sided laminectomy and fusion from L3-L5 which is compatible with the clinical suspicion of a large postoperative abscess. Small epidural component is seen posterior to L4 which is causing moderate compression of the thecal sac. Developing bone marrow edema in L3, L4 and L5 which may be reactive or indicate developing osteomyelitis. Eriberto Renae MD Assessment and Plan Assessment and Plan Impression: 1. Epidural and subcutaneous fluid collection approximately 2 weeks postoperative L3-5 laminectomy and fusion. Drainage noted in the emergency room and on the dressing from earlier today appears serosanguineous at this point rather than purulent material. Recommendations: Findings were discussed with the patient and her in the emergency room. Initial wound and blood cultures pending. Intravenous antibiotics started in the emergency room Patient's neurologic exam remained stable at this point without evidence of a radiculopathy or evidence of cauda equina syndrome. Continue close monitoring of vital signs and neurologic checks. Depending on initial culture results, may require further opening of the wound site and drainage. Discussed with the emergency room physician Chong Hanley MD Aug 08, 2016 23:24
[2016-08-08] MEDS: ACETAMINOPHEN/HYDROcodone 325 MG/10 MG TAB PO PRN (23:38)
[2016-08-09] VITALS (7 sets, daily range): BP systolic 99–132; BP diastolic 52–68; PULSE 88–106; RESP 16–20; TEMP 98.2–101.7; O2SAT 94–99
[2016-08-09] MEDS: PIPERACIL-TAZO 3.375 GM PREMIX 50 ML IV SCH ×4 (02:12→18:18)
[2016-08-09] MEDS: ACETAMINOPHEN/HYDROcodone 325 MG/10 MG TAB PO PRN ×4 (03:51→18:19)
[2016-08-09] MEDS: SODIUM CHLOR 0.9% 1000 ML INJ 1,000 ML IV SCH ×3 (03:51→19:43)
[2016-08-09] MEDS: VANCOMYCIN INJ 1,500 MG in SODIUM CHLORID 0.9% 500 ML INJ 500 ML IV SCH ×2 (03:51→18:19)
[2016-08-09] MEDS: MORPHINE SULFATE 4 MG/ML INJ IV PRN ×4 (05:40→19:43)
[2016-08-09 06:02] LABS: BASOPHIL % 0.3 % (0.0-2.0); EOSINOPHIL # 0.1 TH/MM3 (0-0.4); EOSINOPHIL % 0.5 % (0.0-4.0); HEMATOCRIT 28.2 % (35.0-46.0); HEMO FLAGS DIFF FINAL; LYMPH % 9.2 % (9.0-44.0); LYMPHOCYTE # 1.2 TH/MM3 (1.0-4.8); MEAN CELL VOLUME 91.6 FL (80.0-100.0); MEAN CORPUSCULAR HEMOGLOBIN 31.3 PG (27.0-34.0); MEAN CORPUSCULAR HGB CONC 34.2 % (32.0-36.0); MONO % 8.6 % (0.0-8.0); NEUT % 81.4 % (16.0-70.0); PLATELET COUNT 280 TH/MM3 (150-450); RED BLOOD COUNT 3.08 MIL/MM3 (4.00-5.30); RED CELL DISTRIBUTION WIDTH 14.8 % (11.6-17.2); WHITE BLOOD COUNT 13.5 TH/MM3 (4.0-11.0)
[2016-08-09 06:15] LABS: AST (GOT) 16 U/L (15-37); BLOOD UREA NITROGEN 6 MG/DL (7-18); CHLORIDE 105 MEQ/L (98-107); GLOMERULAR FILTRATION RATE 67 ML/MIN (>89); POTASSIUM 3.6 MEQ/L (3.5-5.1); SODIUM (NA) 140 MEQ/L (136-145)
[2016-08-09 06:18] LABS: ALKALINE PHOSPHATASE 70 U/L (45-117); ALT (GPT) 25 U/L (10-53); ANION GAP 9 MEQ/L (5-15); BICARBONATE 25.8 MEQ/L (21.0-32.0); TOTAL BILIRUBIN ADULT 0.7 MG/DL (0.2-1.0)
[2016-08-09] MEDS: DULoxetine HCl DR 30 MG CAP PO SCH (08:55)
[2016-08-09] MEDS: PANTOPRAZOLE SOD 40 MG DELAYED RELEASE TAB PO SCH (08:56)
[2016-08-09] MEDS: GABAPENTIN 100 MG CAP PO SCH (08:56)
[2016-08-09] MEDS: SODIUM CHLORIDE 0.9% FLUSH 5 ML FLUSH FLUSH SCH ×2 (08:59→19:50)
[2016-08-09] MEDS ORDERED: LISINOPRIL 10 MG TAB PO SCH (09:00)
--- NOTE | 2016-08-09 09:46 | HHI.HP ---
[facility] Service Family Medicine Primary Care Physician Juan Antonio Nava MD Admission Diagnosis cellulitis. Status post laminectomy Diagnoses: (1) Epidural abscess Diagnosis: Principal (2) Sepsis Diagnosis: Principal (3) Nutrition, metabolism, and development symptoms Diagnosis: Principal International Travel<30 Days: No Contact w/Intl Traveler<30days: No Known Affected Area: No History of Present Illness Ms Laura is a 51-year-old female with a PMH significant for sleep apnea, GERD , HTN. Admitted due to serosanguineous drainage from lumbar incision from a L3/ 4 and L4/5 laminectomy and interbody fusion with Dr. Monk on 07/25/16. She originally presented to the ED due to uncontrolled pain. After this surgery patient was doing well and was at rehabilitation at [facility] where she was participating in PT and OT. Her pain had been well controlled until the night prior to admission when she received her pain medication 3 hours late. The morning of admission she also reports getting her pain medication 1 hour late. Since then she complained of uncontrolled pain despite pain medications. She also reported fevers during the day with a high of 103. Patient's biggest concern was pain control and SOB that required prolonged use of her CPAP. Her reports her face being red and feeling sweaty. Denies any nausea/ vomiting, abdominal pain, dysuria, chest pain, loss of appetite. Patient was unaware of back draining until her presentation in the ED today. She was admitted to the hospital and treated with broad abx coverage. She is hemodynamically stable but has staph aureus of unsure sensitivities in 2 blood cultures and still awaiting her wound cultures. She is covered with vancomycin in case she has MRSA. Her MRI is suggestive of perhaps osteo, appreciate help of Neurosurgery. Will see finals on blood cultures and will need them repeated to be sure they clear, plus will ask ID to see her on Thursday or sooner if she worsens as she will likely need mcfp abx. Review of Systems Other Constitutional: COMPLAINS OF: Fever, DENIES: Change in appetite Eyes: DENIES: Blurred vision Ears, nose, mouth, throat: DENIES: Throat pain, Running Nose Respiratory: COMPLAINS OF: Apneas, Shortness of breath, DENIES: Cough Cardiovascular: COMPLAINS OF: Lower Extremity Edema, DENIES: Chest pain Gastrointestinal: DENIES: Abdominal pain, Constipation, Diarrhea, Nausea, Vomiting Genitourinary: DENIES: Dysuria Musculoskeletal: COMPLAINS OF: Back pain Integumentary: DENIES: Rash Neurologic: COMPLAINS OF: Paresthesias (anterior shins bilaterally), DENIES: Headache Past Family Social History Past Medical History Sleep apnea-on CPAP HTN Depression GERD Past Surgical History L3 4, L4 5 laminectomy and fusion July 2016 Anterior cervical (C4-7) interbody fusion with C4-7 cervical plate Allergies: Coded Allergies: Prednisone (Verified Adverse Reaction, Intermediate, Restlessness, 08/08/16) Family History Father: back problems and HTN Mother: cancer Social History Lives with normally, was at rehab just priort o this hospitalization Tobacco: denies Alcohol: none Illicit: denies Physical Exam Vital Signs Vital Signs Date Time Temp Pulse Resp B/P Pulse Ox O2 Delivery O2 Flow Rate FiO2 08/09/16 08:00 98.2 91 17 100/52 98 08/09/16 05:10 100.0 100 20 113/54 99 08/09/16 00:24 99.6 101 18 99/52 97 08/08/16 23:47 Nasal Cannula 2.00 08/08/16 21:19 100.6 108 18 120/56 97 Nasal Cannula 2 08/08/16 16:55 97 Nasal Cannula 2 08/08/16 16:55 18 97 Nasal Cannula 2 08/08/16 16:53 18 08/08/16 14:52 129 24 08/08/16 14:46 102.8 129 24 133/57 95 Physical Exam GENERAL: This is a well-nourished, well-developed patient, laying in bed relatively comfortable after abx and pain meds SKIN: Increased erythema of face diffusely. Midline lumbar incision with ady present. Serosanguineous drainage most prominent at the lower aspect of the incision. Incision pad and bed sheets covered with drainage. EYES: Pupils equal round and reactive. Extraocular motions intact. No scleral icterus. No injection or drainage. ENT: Nose without bleeding, purulent drainage. NECK: No lymphadenopathy. CARDIOVASCULAR: Distant heart sounds but with regular rate and rhythm without obvious murmurs, gallops, rubs. RESPIRATORY: Clear to auscultation. Breath sounds equal bilaterally. No wheezes , rales, or rhonchi. GASTROINTESTINAL: Abdomen soft, non-tender, nondistended. No hepato-splenomegaly , or palpable masses. No guarding. MUSCULOSKELETAL: Extremities without clubbing, cyanosis. 2+ pitting edema up to mid aldrich. No calf tenderness. NEUROLOGICAL: Awake and alert. Motor grossly within normal limits. Normal speech. Laboratory Laboratory Tests Test 08/08/16 08/08/16 08/08/16 08/08/16 15:30 17:05 19:10 21:30 White Blood Count 18.1 Red Blood Count 3.79 Hemoglobin 11.7 Hematocrit 34.2 Mean Corpuscular Volume 90.3 Mean Corpuscular Hemoglobin 30.9 Mean Corpuscular Hemoglobin 34.2 Concent Red Cell Distribution Width 14.5 Platelet Count 356 Mean Platelet Volume 7.3 Neutrophils (%) (Auto) 88.4 Lymphocytes (%) (Auto) 4.8 Monocytes (%) (Auto) 6.4 Eosinophils (%) (Auto) 0.2 Basophils (%) (Auto) 0.2 Neutrophils # (Auto) 16.0 Lymphocytes # (Auto) 0.9 Monocytes # (Auto) 1.2 Eosinophils # (Auto) 0.0 Basophils # (Auto) 0.0 CBC Comment DIFF FINAL Differential Comment Sodium Level 135 Potassium Level 4.0 Chloride Level 99 Carbon Dioxide Level 26.6 Anion Gap 9 Blood Urea Nitrogen 8 Creatinine 0.98 Estimat Glomerular Filtration 60 Rate Random Glucose 113 Lactic Acid Level 2.2 1.3 Calcium Level 8.5 Total Bilirubin 0.4 Aspartate Amino Transf 25 (AST/SGOT) Alanine Aminotransferase 36 (ALT/SGPT) Alkaline Phosphatase 92 Total Protein 6.7 Albumin 3.2 Urine Color YELLOW Urine Turbidity CLEAR Urine pH 7.5 Urine Specific [place] 1.016 Urine Protein NEG Urine Glucose (UA) NEG Urine Ketones NEG Urine Occult Blood MOD Urine Nitrite NEG Urine Bilirubin NEG Urine Urobilinogen LESS THAN 2.0 Urine Leukocyte Esterase SMALL Urine RBC LESS THAN 1 Urine WBC 2 Urine Squamous Epithelial 4 Cells Urine Mucus FEW Microscopic Urinalysis Comment CATH-CULT NOT IND Troponin I LESS THAN 0.02 Test 08/09/16 04:35 White Blood Count 13.5 Red Blood Count 3.08 Hemoglobin 9.7 Hematocrit 28.2 Mean Corpuscular Volume 91.6 Mean Corpuscular Hemoglobin 31.3 Mean Corpuscular Hemoglobin 34.2 Concent Red Cell Distribution Width 14.8 Platelet Count 280 Mean Platelet Volume 6.6 Neutrophils (%) (Auto) 81.4 Lymphocytes (%) (Auto) 9.2 Monocytes (%) (Auto) 8.6 Eosinophils (%) (Auto) 0.5 Basophils (%) (Auto) 0.3 Neutrophils # (Auto) 11.0 Lymphocytes # (Auto) 1.2 Monocytes # (Auto) 1.2 Eosinophils # (Auto) 0.1 Basophils # (Auto) 0.0 CBC Comment DIFF FINAL Differential Comment Sodium Level 140 Potassium Level 3.6 Chloride Level 105 Carbon Dioxide Level 25.8 Anion Gap 9 Blood Urea Nitrogen 6 Creatinine 0.89 Estimat Glomerular Filtration 67 Rate Random Glucose 124 Calcium Level 7.9 Total Bilirubin 0.7 Aspartate Amino Transf 16 (AST/SGOT) Alanine Aminotransferase 25 (ALT/SGPT) Alkaline Phosphatase 70 Total Protein 5.3 Albumin 2.5 Date/Time Procedure Status Source Growth 08/08/16 18:20 Gram Stain Received Wound Back Pending 08/08/16 18:20 Wound Culture Received Wound Back Pending 08/08/16 15:35 Aerobic Blood Culture - Preliminary Resulted Blood Peripheral Gram Positive Cocci 08/08/16 15:35 Anaerobic Blood Culture - Preliminary Resulted Gram Positive Cocci 08/08/16 15:30 Influenza Types A,B Antigen (KIA) - Final Complete Nasal Aspirate NEGATIVE FOR FLU A AND B ANTIGEN.... 08/08/16 15:30 Aerobic Blood Culture Resulted Blood Peripheral Pending 08/08/16 15:30 Anaerobic Blood Culture - Preliminary Resulted Gram Positive Cocci Result Diagram: 08/09/16 0435 08/09/16 0435 Imaging Last Impressions Chest X-Ray 08/08/16 1751 Signed Impressions: Service Date/Time: Monday, August 08, 2016 18:18 - CONCLUSION: No acute disease. Eriberto Renae MD Lumbar Spine MRI 08/08/16 0000 Signed Impressions: Service Date/Time: Monday, August 08, 2016 20:26 - CONCLUSION: Large postoperative complex fluid collection following right-sided laminectomy and fusion from L3-L5 which is compatible with the clinical suspicion of a large postoperative abscess. Small epidural component is seen posterior to L4 which is causing moderate compression of the thecal sac. Developing bone marrow edema in L3, L4 and L5 which may be reactive or indicate developing osteomyelitis. Eriberto Renae MD Septic Shock Reassessment Heart: Regular rate and rhythm Lungs: Clear Skin: Warm, Dry Assessment and Plan Assessment and Plan 51-year-old female with a PMH significant for sleep apnea, GERD, HTN. Admitted for postoperative epidural abscess Problem List: (1) Epidural abscess Status: Acute Plan: Postop laminectomy on 07/25/16. Patient was initially doing well but then developed uncontrolled pain, fevers, serosanguineous drainage from incision site on the day of this admission. Met sepsis criteria on admission with fever, elevated pulse, leukocytosis. Physical exam significant for active drainage from site. -Leukocytosis present but now with resolved lactic acidosis, has 2 blood cultures positive for staph aureus unknown sensitivities EKG plus Troponin 1 unremarkable -UA, CXR unremarkable for other etiologies of infection Blood and wound cultures finals are pending, will need repeat of blood cultures and can have ID consult for Thursday or sooner if worsens, may need echo as well -Monitor I&O Neurosurgery consult: Appreciate recommendations * Neuro checks * Patient's neurological exam remained stable without evidence of radiculopathy or cauda equina syndrome * May require further opening of the wound site and drainage Images: * Lumbar spine MRI: Large postoperative complex fluid collection following right -sided laminectomy and fusion from L3/L5 which is compatible with the clinical suspicion of a large postoperative abscess. Small epidural component is seen posterior to L4 which is causing moderate compression of the thecal sac. Developing bone marrow edema in L3, L4 and L5 which may be reactive or indicate developing osteomyelitis Medications: * Zosyn (3/3 * Vancomycin (3/3 * Clindamycin (3/3) * Continue home gabapentin dosing * Continue home duloxetine (2) Sepsis Status: Acute Plan: See plan above (3) Nutrition, metabolism, and development symptoms Status: Acute Plan: Diet: NPO originally, can eat if not having a procedure Fluids: NS at 125, received 4 L boluses in ED Electrolytes: Mild hyponatremia but otherwise unremarkable DVT prophylaxis: SCDs, chemical anticoagulation on hold due to possible operative treatment GI prophylaxis: Continue home Protonix Chronic conditions: * Sleep apnea: Instructed to bring in home CPAP machine. Ordered BiPAP overnight while in hospital but she refused bipap and states her will bring her machine from home * HTN: Continue home lisinopril Physician Certification 2 Midnight Certification Type: Admission for Inpatient Services Order for Inpatient Services The services are ordered in accordance with Medicare regulations or non- Medicare payer requirements, as applicable. In the case of services not specified as inpatient-only, they are appropriately provided as inpatient services in accordance with the 2-midnight benchmark. Estimated LOS (days): 4 4 days is the estimated time the patient will need to remain in the hospital, assuming treatment plan goals are met and no additional complications. Post-Hospital Plan: Not yet determined Problem Qualifiers (1) Sepsis: Qualified Code: A41.01 - Sepsis due to Methicillin susceptible Staphylococcus aureus Sapphire Cuadra MD Aug 09, 2016 09:46
[2016-08-09] MEDS ORDERED: PHARMACY ORDERED LAB XX ONE (14:45)
--- NOTE | 2016-08-09 19:29 | EKG ---
Date Performed: 08/08/2016 Time Performed: 18:52:23 PTAGE: 51 years EKG: SINUS TACHYCARDIA Since previous tracing, no significant change noted ABNORMAL RHYTHM ECG PREVIOUS TRACING : 07/22/2016 09.46 DOCTOR: Nirav De Leon Interpretating Date/Time 08/09/2016 19:28:34
--- NOTE | 2016-08-09 19:33 | HHI.NSPN ---
History Chief Complaint: back pain extending to right thigh. Right thigh numbness Interval History 51-year-old female with history of chronic low back pain and 1-2 years of progressive right lower extremity numbness and weakness with a right foot drop recently underwent L3 4 and L4 5 laminectomy and interbody fusion per Dr. Monk on 07/24/16. She was discharged [facility] for inpatient rehabilitation. Patient states that she was doing recently well until this morning when she developed significant increased back and leg pain with a low- grade fever and also some drainage from the incision. She presented to [facility] emergency room this afternoon for evaluation. The case was discussed with Dr. Monk per the emergency room physician and further fever workup was initiated. The patient has subsequently undergone an MRI of the lumbar spine. She states of all her back pain still remains somewhat increased versus a past couple weeks , it is improved compared to this morning. She has some aching primarily in the right lateral hip and thigh which is new today. She states that her prior pain radiating to the primarily lateral lower extremities which she experienced prior to surgery remains improved. She does not indicate any bowel or bladder dysfunction. No abdominal pain, nausea, vomiting, diarrhea. She does complain of headache early this morning but no significant neck pain or stiffness 08/09/16: Appear somewhat more comfortable today. Continued serosanguineous drainage from the lumbar incision, but significantly diminished compared to Exam Results Vital Signs Date Time Temp Pulse Resp B/P Pulse Ox O2 Delivery O2 Flow Rate FiO2 08/09/16 16:00 98.7 88 17 110/58 97 08/09/16 09:00 Nasal Cannula 2.00 Intake and Output 08/08/16 08/08/16 08/09/16 08:00 16:00 00:00 Intake Total 0 ml Balance 0 ml Physical Examination Awake and alert conversant and appropriate Respirations clear, nonlabored Abdomen soft, nontender Lumbar incision with less edema and erythema with resolution of many of the cutaneous blebs. Mostly mild to moderate drainage from the incision- serosanguineous, nonpurulent. Sensation mildly diminished light touch in the anterolateral right thigh and the right foot-chronic per patient Motor function 0 right tibialis anterior with 1/5 peroneus longus and brevis and tibialis posterior, 0/5 extensor hallucis longus, 2-3/5 gastrocsoleus Strength normal left lower extremity. Patient states motor function unchanged from her usual baseline Lab, Micro, Other Results Microbiology Date/Time Procedure Status Source Growth 08/08/16 15:14 Aerobic Blood Culture Received Blood Peripheral Pending 08/08/16 15:14 Anaerobic Blood Culture Received Blood Peripheral Pending 08/08/16 15:30 Aerobic Blood Culture - Preliminary Resulted Blood Peripheral NO GROWTH IN 1 DAY 08/08/16 15:30 Anaerobic Blood Culture - Preliminary Resulted Staphylococcus Aureus 08/08/16 15:30 Influenza Types A,B Antigen (KIA) - Final Complete Nasal Aspirate NEGATIVE FOR FLU A AND B ANTIGEN.... 08/08/16 15:35 Aerobic Blood Culture - Preliminary Resulted Blood Peripheral Gram Positive Cocci 08/08/16 15:35 Anaerobic Blood Culture - Preliminary Resulted Gram Positive Cocci 08/08/16 18:20 Gram Stain - Final Resulted Wound Back 08/08/16 18:20 Wound Culture - Preliminary Resulted Staphylococcus Aureus Gram Negative [facility] Laboratory Tests Test 08/08/16 08/09/16 08/09/16 21:30 04:35 15:10 Troponin I LESS THAN 0.02 NG/ML White Blood Count 13.5 TH/MM3 Red Blood Count 3.08 MIL/MM3 Hemoglobin 9.7 GM/DL Hematocrit 28.2 % Mean Corpuscular Volume 91.6 FL Mean Corpuscular Hemoglobin 31.3 PG Mean Corpuscular Hemoglobin 34.2 % Concent Red Cell Distribution Width 14.8 % Platelet Count 280 TH/MM3 Mean Platelet Volume 6.6 FL Neutrophils (%) (Auto) 81.4 % Lymphocytes (%) (Auto) 9.2 % Monocytes (%) (Auto) 8.6 % Eosinophils (%) (Auto) 0.5 % Basophils (%) (Auto) 0.3 % Neutrophils # (Auto) 11.0 TH/MM3 Lymphocytes # (Auto) 1.2 TH/MM3 Monocytes # (Auto) 1.2 TH/MM3 Eosinophils # (Auto) 0.1 TH/MM3 Basophils # (Auto) 0.0 TH/MM3 CBC Comment DIFF FINAL Differential Comment Sodium Level 140 MEQ/L Potassium Level 3.6 MEQ/L Chloride Level 105 MEQ/L Carbon Dioxide Level 25.8 MEQ/L Anion Gap 9 MEQ/L Blood Urea Nitrogen 6 MG/DL Creatinine 0.89 MG/DL Estimat Glomerular Filtration 67 ML/MIN Rate Random Glucose 124 MG/DL Calcium Level 7.9 MG/DL Total Bilirubin 0.7 MG/DL Aspartate Amino Transf 16 U/L (AST/SGOT) Alanine Aminotransferase 25 U/L (ALT/SGPT) Alkaline Phosphatase 70 U/L Total Protein 5.3 GM/DL Albumin 2.5 GM/DL Vancomycin Level Trough 7.8 MCG/ML Medical Decision Making Impression and Plan Impression: 1. Postoperative wound infection 2. Sepsis Plan: Findings were discussed with the patient and her . Have advised them to strictly avoid positioning the patient flat on her back. Wound has improved today with initial antibiotics and positioning measures. We will continue this treatment at present. Infectious disease consult planned for 08/11/16 as long as the patient otherwise appears stable. Following initial course of antibiotics and observation of wound, patient may require further deep wound debridement and removal of instrumentation. Chong Hanley MD Aug 09, 2016 19:32
[2016-08-09] MEDS: ACETAMINOPHEN 325 MG TAB PO PRN (19:48)
[2016-08-09] MEDS: DOCUSATE SODIUM 100 MG CAP PO PRN (19:48)
[2016-08-09] MEDS: GABAPENTIN 300 MG CAP PO SCH (19:50)
[2016-08-10] VITALS (7 sets, daily range): BP systolic 97–132; BP diastolic 53–68; PULSE 89–104; RESP 17–20; TEMP 97.5–99.7; O2SAT 92–96
[2016-08-10] MEDS: PIPERACIL-TAZO 3.375 GM PREMIX 50 ML IV SCH ×5 (00:07→23:55)
[2016-08-10] MEDS: ACETAMINOPHEN/HYDROcodone 325 MG/10 MG TAB PO PRN ×5 (00:08→20:29)
[2016-08-10] MEDS: VANCOMYCIN INJ 2,000 MG in SODIUM CHLORID 0.9% 500 ML INJ 500 ML IV SCH ×2 (03:24→15:44)
[2016-08-10] MEDS: SODIUM CHLOR 0.9% 1000 ML INJ 1,000 ML IV SCH ×2 (03:25→12:12)
[2016-08-10] MEDS: MORPHINE SULFATE 4 MG/ML INJ IV PRN (04:07)
[2016-08-10 07:02] LABS: HEMATOCRIT 28.6 % (35.0-46.0); MEAN CELL VOLUME 92.1 FL (80.0-100.0); MEAN CORPUSCULAR HEMOGLOBIN 31.8 PG (27.0-34.0); MEAN CORPUSCULAR HGB CONC 34.5 % (32.0-36.0); PLATELET COUNT 284 TH/MM3 (150-450); RED CELL DISTRIBUTION WIDTH 14.6 % (11.6-17.2); REVIEW FLAG FINAL; WHITE BLOOD COUNT 8.8 TH/MM3 (4.0-11.0)
[2016-08-10 07:23] LABS: POTASSIUM 3.6 MEQ/L (3.5-5.1)
[2016-08-10] MEDS: SODIUM CHLORIDE 0.9% FLUSH 5 ML FLUSH FLUSH SCH ×2 (09:00→20:31)
[2016-08-10] MEDS: PANTOPRAZOLE SOD 40 MG DELAYED RELEASE TAB PO SCH (09:00)
[2016-08-10] MEDS: DULoxetine HCl DR 30 MG CAP PO SCH (09:00)
[2016-08-10] MEDS: GABAPENTIN 100 MG CAP PO SCH (09:01)
--- NOTE | 2016-08-10 12:33 | HHI.FPPN ---
Subjective Remarks No acute events overnight. Vital signs unremarkable but does have mild hypotension. This morning patient states that she feels about the same. Has been trying to lay on her side to avoid laying her back per neurosurgery recommendations. Does endorse a small appetite. Denies CP and SOB (Clair Phan MD R2) Objective Vitals Vital Signs Date Time Temp Pulse Resp B/P Pulse Ox O2 Delivery O2 Flow Rate FiO2 08/10/16 12:00 99.0 89 17 103/59 93 08/10/16 08:00 98.7 91 17 109/60 92 08/10/16 04:00 97.5 94 20 115/58 96 08/10/16 00:00 97.7 94 20 97/56 93 08/09/16 20:28 105 08/09/16 20:00 101.7 106 18 105/52 97 08/09/16 16:00 98.7 88 17 110/58 97 I/O 08/09/16 08/09/16 08/09/16 08/10/16 08/10/16 08/10/16 07:00 15:00 23:00 07:00 15:00 23:00 Intake Total 981 ml 1030 ml 240 ml 1598 ml Output Total 250 ml Balance 981 ml 780 ml 240 ml 1598 ml Intake Oral 0 ml 240 ml 240 ml IV Total 981 ml 1030 ml 1358 ml Output Urine Total 250 ml # Voids 2 1 2 # Bowel Movements 0 0 0 (Clair Phan MD R2) Result Diagram: 08/10/16 0601 08/10/16 06 Imaging GEN: Well-developed, well-nourished patient. No acute distress. SKIN: Incisions site covered but bandage shows moderate amount of drainage. Bandage has not been changed since last night. CARDIOVASCULAR: Distant heart sounds but with regular rate and rhythm without obvious murmurs, gallops, rubs. RESPIRATORY: Clear to auscultation. Breath sounds equal bilaterally. No wheezes , rales, or rhonchi. EXT: No edema. No calf tenderness. NEURO/PSYCH: Awake, alert. Appropriate insight and judgment. Normal speech ( Clair Phan MD R2) A/P Assessment and Plan 51-year-old female with a PMH significant for sleep apnea, GERD, HTN. Admitted for postoperative epidural abscess Discharge Planning Timeline unknown, pending improvement in clinical course and resolution of bacteremia. shereen Cuadra (Clair Phan MD R2) Attending Attestation Patient seen and examined. Case reviewed and discussed with the resident team. Agree with plan of care as discussed with me and documented in the resident note. (Sapphire Cuadra MD) Problem List: (1) Epidural abscess Status: Acute Plan: Postop laminectomy on 07/25/16. Patient was initially doing well but then developed uncontrolled pain, fevers, serosanguineous drainage from incision site on the day of this admission. Met sepsis criteria on admission with fever, elevated pulse, leukocytosis. Physical exam significant for active drainage from site. -Resolved leukocytosis -Blood cultures positive with staph aureus -Wound culture positive for Escherichia coli, Citrobacter, Staph Aureus -Repeat blood cultures pending -Refrain from showers until cleared from Neurosurgery ID consulted: Appreciate recommendations Neurosurgery consult: Appreciate recommendations * Neuro checks * Patient's neurological exam remained stable without evidence of radiculopathy or cauda equina syndrome * May require further opening of the wound site and drainage * strictly avoid positioning the patient flat on her back. Images: * Lumbar spine MRI: Large postoperative complex fluid collection following right -sided laminectomy and fusion from L3/L5 which is compatible with the clinical suspicion of a large postoperative abscess. Small epidural component is seen posterior to L4 which is causing moderate compression of the thecal sac. Developing bone marrow edema in L3, L4 and L5 which may be reactive or indicate developing osteomyelitis Medications: * Zosyn (3/3 * Vancomycin (3/3 * Clindamycin (3/3) * Continue home gabapentin dosing * Continue home duloxetine (2) Sepsis Status: Resolved Plan: See plan above (3) Bacteremia Status: Acute Plan: See above plan (4) Hypertension Status: Chronic Plan: Hold home lisinopril as patient has been hypotensive (5) Nutrition, metabolism, and development symptoms Status: Acute Plan: Diet: Regular Fluids: Fluids on hold, consider resuming if patient has worsening hypotension Electrolytes: unremarkable DVT prophylaxis: SCDs, chemical anticoagulation on hold due to possible operative treatment GI prophylaxis: Heparin Chronic conditions: * Sleep apnea: home CPAP (Clair Phan MD R2) Problem Qualifiers (1) Sepsis: Qualified Code: A41.01 - Sepsis due to Methicillin susceptible Staphylococcus aureus (2) Hypertension: Qualified Code: I10 - Essential hypertension Clair Phan MD R2 Aug 10, 2016 12:33 Sapphire Cuadra MD Aug 14, 2016 16:25
[2016-08-10] MEDS: DOCUSATE SODIUM 100 MG CAP PO PRN (15:17)
[2016-08-10] MEDS: HEPARIN SODIUM - SQ 10,000 UNITS/ML VIAL SQ SCH ×2 (15:18→20:54)
--- NOTE | 2016-08-10 19:37 | HHI.NSPN ---
History Chief Complaint: back pain extending to right thigh. Right thigh numbness Interval History 51-year-old female with history of chronic low back pain and 1-2 years of progressive right lower extremity numbness and weakness with a right foot drop recently underwent L3 4 and L4 5 laminectomy and interbody fusion per Dr. Monk on 07/24/16. She was discharged [facility] for inpatient rehabilitation. Patient states that she was doing recently well until this morning when she developed significant increased back and leg pain with a low- grade fever and also some drainage from the incision. She presented to [facility] emergency room this afternoon for evaluation. The case was discussed with Dr. Monk per the emergency room physician and further fever workup was initiated. The patient has subsequently undergone an MRI of the lumbar spine. She states of all her back pain still remains somewhat increased versus a past couple weeks , it is improved compared to this morning. She has some aching primarily in the right lateral hip and thigh which is new today. She states that her prior pain radiating to the primarily lateral lower extremities which she experienced prior to surgery remains improved. She does not indicate any bowel or bladder dysfunction. No abdominal pain, nausea, vomiting, diarrhea. She does complain of headache early this morning but no significant neck pain or stiffness 08/09/16: Appear somewhat more comfortable today. Continued serosanguineous drainage from the lumbar incision, but significantly diminished compared to System Review Comments States back in proximal lower extremity pain symptoms improving further today Exam Results Vital Signs Date Time Temp Pulse Resp B/P Pulse Ox O2 Delivery O2 Flow Rate FiO2 08/10/16 16:00 98.4 91 18 111/53 94 08/10/16 09:00 Nasal Cannula 2.00 Intake and Output 08/09/16 08/09/16 08/10/16 08:00 16:00 00:00 Intake Total 981 ml 1030 ml 240 ml Output Total 250 ml Balance 981 ml 780 ml 240 ml Physical Examination Awake and alert conversant and appropriate Respirations clear, nonlabored Abdomen soft, nontender Lumbar dressing in place, dry and intact. Discussed with nursing staff. No significant drainage this afternoon from lumbar incision Sensation mildly diminished light touch in the anterolateral right thigh and the right foot-chronic per patient Motor function 0 right tibialis anterior with 1/5 peroneus longus and brevis and tibialis posterior, 0/5 extensor hallucis longus, 2-3/5 gastrocsoleus Strength normal left lower extremity. Patient states motor function unchanged from her usual baseline Lab, Micro, Other Results Microbiology Date/Time Procedure Status Source Growth 08/08/16 15:14 Aerobic Blood Culture Received Blood Peripheral Pending 08/08/16 15:14 Anaerobic Blood Culture Received Blood Peripheral Pending 08/08/16 15:30 Aerobic Blood Culture - Preliminary Resulted Blood Peripheral NO GROWTH IN 2 DAYS 08/08/16 15:30 Anaerobic Blood Culture - Preliminary Resulted Staphylococcus Aureus 08/08/16 15:30 Influenza Types A,B Antigen (KIA) - Final Complete Nasal Aspirate NEGATIVE FOR FLU A AND B ANTIGEN.... 08/08/16 15:35 Aerobic Blood Culture - Preliminary Resulted Blood Peripheral Staphylococcus Aureus 08/08/16 15:35 Anaerobic Blood Culture - Final Resulted Staphylococcus Aureus 08/08/16 18:20 Gram Stain - Final Complete Wound Back 08/08/16 18:20 Wound Culture - Final Complete Staphylococcus Aureus Citrobacter Koseri Escherichia Coli 08/10/16 11:25 Aerobic Blood Culture Received Blood Peripheral Pending 08/10/16 11:25 Anaerobic Blood Culture Received Blood Peripheral Pending 08/10/16 11:30 Aerobic Blood Culture Received Blood Peripheral Pending 08/10/16 11:30 Anaerobic Blood Culture Received Blood Peripheral Pending Laboratory Tests Test 08/10/16 06:01 White Blood Count 8.8 TH/MM3 Red Blood Count 3.10 MIL/MM3 Hemoglobin 9.9 GM/DL Hematocrit 28.6 % Mean Corpuscular Volume 92.1 FL Mean Corpuscular Hemoglobin 31.8 PG Mean Corpuscular Hemoglobin 34.5 % Concent Red Cell Distribution Width 14.6 % Platelet Count 284 TH/MM3 Mean Platelet Volume 6.8 FL Sodium Level 140 MEQ/L Potassium Level 3.6 MEQ/L Chloride Level 105 MEQ/L Carbon Dioxide Level 26.0 MEQ/L Anion Gap 9 MEQ/L Blood Urea Nitrogen 6 MG/DL Creatinine 0.75 MG/DL Estimat Glomerular Filtration 81 ML/MIN Rate Random Glucose 90 MG/DL Calcium Level 8.3 MG/DL Medical Decision Making Impression and Plan Impression: 1. Postoperative wound infection 2. Sepsis. Plan: WBC improved today on current treatment and patient states less back and proximal lower extremity pain symptoms Findings were discussed again with the patient and her . Have advised them to strictly avoid positioning the patient flat on her back. Discussed with nursing staff today Wound has improved past 2 days initial antibiotics and positioning measures. Continue present antibiotic treatment. Infectious disease consult pending Possible wound exploration and debridement depending on clinical course Chong Hanley MD Aug 10, 2016 19:37
[2016-08-10] MEDS: GABAPENTIN 300 MG CAP PO SCH (20:29)
[2016-08-11] VITALS: BP 111/58; PULSE 95; RESP 18; TEMP 99.2; O2SAT 92
[2016-08-11] MEDS: ACETAMINOPHEN/HYDROcodone 325 MG/10 MG TAB PO PRN ×3 (03:45→12:41)
[2016-08-11] MEDS: VANCOMYCIN INJ 2,000 MG in SODIUM CHLORID 0.9% 500 ML INJ 500 ML IV SCH (03:45)
[2016-08-11 04:00] VITALS: BP 104/52; PULSE 91; RESP 18; TEMP 99.3; O2SAT 94
[2016-08-11] MEDS: PIPERACIL-TAZO 3.375 GM PREMIX 50 ML IV SCH ×2 (05:34→11:35)
[2016-08-11] MEDS: HEPARIN SODIUM - SQ 10,000 UNITS/ML VIAL SQ SCH (05:34)
[2016-08-11] MEDS: DULoxetine HCl DR 30 MG CAP PO SCH (07:29)
[2016-08-11] MEDS: GABAPENTIN 100 MG CAP PO SCH (07:30)
[2016-08-11] MEDS: SODIUM CHLORIDE 0.9% FLUSH 5 ML FLUSH FLUSH SCH (07:30)
[2016-08-11] MEDS: PANTOPRAZOLE SOD 40 MG DELAYED RELEASE TAB PO SCH (07:30)
[2016-08-11 08:00] VITALS: BP 110/57; PULSE 82; PULSE 86; RESP 16; TEMP 97.7; O2SAT 94
--- NOTE | 2016-08-11 11:47 | HHI.FPPN ---
Subjective Remarks Ms Laura is much improved overall. She feels much better with resolution of her fevers and drainage of her back is reduced to almost nothing at this point. We discussed her infection and that she had staph aureus in her blood and skilled nursing abx may be needed. She and her understand and an echo and ID consult are pending. Her wound cultures were polymicrobial. She was concerned about going back to the same rehab as she wishes to try another place and does not feel up to going home quite yet. Per case management, she can go to [place] which she would prefer. Objective Vitals Vital Signs Date Time Temp Pulse Resp B/P Pulse Ox O2 Delivery O2 Flow Rate FiO2 08/11/16 08:29 18 08/11/16 08:10 Room Air 08/11/16 08:00 86 08/11/16 08:00 97.7 82 16 110/57 94 08/11/16 04:00 99.3 91 18 104/52 94 08/11/16 00:00 99.2 95 18 111/58 92 08/10/16 21:56 Nasal Cannula 2.00 08/10/16 20:00 99.7 104 20 132/68 94 08/10/16 19:50 101 08/10/16 16:00 98.4 91 18 111/53 94 08/10/16 12:00 99.0 89 17 103/59 93 I/O 08/10/16 08/10/16 08/10/16 08/11/16 08/11/16 08/11/16 07:00 15:00 23:00 07:00 15:00 23:00 Intake Total 1598 ml 1504 ml 0 ml 790 ml Output Total 900 ml Balance 1598 ml 1504 ml 0 ml -110 ml Intake Oral 240 ml 480 ml 240 ml IV Total 1358 ml 1024 ml 0 ml 550 ml Output Urine Total 900 ml # Voids 2 2 # Bowel Movements 0 0 0 Result Diagram: 08/10/16 0608/10/16 06 Objective Remarks GEN: Well-developed, well-nourished patient. No acute distress. SKIN: Incisions site covered but bandage shows no real drainage. Bandage was changed last night. CARDIOVASCULAR: Distant heart sounds but with regular rate and rhythm without obvious murmurs, gallops, rubs. RESPIRATORY: Clear to auscultation. Breath sounds equal bilaterally. No wheezes , rales, or rhonchi. EXT: No edema. No calf tenderness. NEURO/PSYCH: Awake, alert. Appropriate insight and judgment. Normal speech. some numbness right thigh and leg but able to move it Urinary Catheter: No Vascular Central Line Catheter: No A/P Assessment and Plan 51-year-old female with a PMH significant for sleep apnea, GERD, HTN. Admitted for postoperative epidural abscess Discharge Planning Timeline unknown, pending improvement in clinical course and resolution of bacteremia. pt and prefer [place] when she is ready to go Problem List: (1) Epidural abscess Status: Acute Plan: Postop laminectomy on 07/25/16. Patient was initially doing well but then developed uncontrolled pain, fevers, serosanguineous drainage from incision site on the day of this admission. Met sepsis criteria on admission with fever, elevated pulse, leukocytosis. Physical exam significant for active drainage from site. -Resolved leukocytosis -Blood cultures positive with staph aureus -Wound culture positive for Escherichia coli, Citrobacter, Staph Aureus -Repeat blood cultures pending -Refrain from showers until cleared from Neurosurgery ID consulted: Appreciate recommendations will have PT see her as well and she and her request this Neurosurgery consult: Appreciate recommendations * Neuro checks * Patient's neurological exam remained stable without evidence of radiculopathy or cauda equina syndrome * May require further opening of the wound site and drainage * strictly avoid positioning the patient flat on her back. Images: * Lumbar spine MRI: Large postoperative complex fluid collection following right -sided laminectomy and fusion from L3/L5 which is compatible with the clinical suspicion of a large postoperative abscess. Small epidural component is seen posterior to L4 which is causing moderate compression of the thecal sac. Developing bone marrow edema in L3, L4 and L5 which may be reactive or indicate developing osteomyelitis Medications: * Zosyn (3/3 * Vancomycin (3/3 * Clindamycin (3/3) * Continue home gabapentin dosing * Continue home duloxetine (2) Sepsis Status: Acute Plan: See plan above echocardiogram ID consult repeated blood cultures clinically pt doing well (3) Hypertension Status: Acute Plan: Hold home lisinopril as patient has been hypotensive restart if needed (4) Nutrition, metabolism, and development symptoms Status: Acute Plan: Diet: Regular Fluids: Fluids on hold, consider resuming if patient has worsening hypotension Electrolytes: unremarkable DVT prophylaxis: SCDs, chemical anticoagulation on hold due to possible operative treatment GI prophylaxis: Heparin as she is at risk for DVT. can hold if she needs any procedures Chronic conditions: * Sleep apnea: home CPAP Problem Qualifiers (1) Sepsis: Qualified Code: A41.01 - Sepsis due to Methicillin susceptible Staphylococcus aureus Sapphire Cuadra MD Aug 11, 2016 11:46
[2016-08-11] MEDS ORDERED: FAMOTIDINE 20 MG/2 ML VIAL ONE (11:55)
[2016-08-11 12:00] VITALS: BP 128/82; PULSE 91; RESP 17; TEMP 98.6; O2SAT 97
[2016-08-11] MEDS ORDERED: ACETAMINOPHEN 1000 MG/100 ML VIAL IV ONE (12:00)
[2016-08-11] MEDS ORDERED: PROPOFOL 200 MG/20 ML AMP IV ONE (12:00)
[2016-08-11] MEDS ORDERED: ONDANSETRON HCL 4 MG/2 ML VIAL IV PUSH ONE (12:00)
--- NOTE | 2016-08-11 12:51 | PD.ID.CON ---
History of Present Illness Service ID Consult Requested By Dr Zeb Gutierrez Reason for Consult infected lami wound and bactermia Primary Care Physician Juan Antonio Nava MD Diagnoses: History of Present Illness 51-year-old female with history of chronic low back pain and 1-2 years of progressive right lower extremity numbness and weakness with a right foot drop recently underwent L3 4 and L4 5 laminectomy and interbody fusion per Dr. Monk on 07/24/16. She healed fine and experienced no problems untill the morning of presentation whren she developped significant back and leg pain with a low-grade fever and also some drainage from the incision. She presented to [facility] emergency room last Thursday The patient has subsequently undergone an MRI of the lumbar spine. She has no bowel or bladder dysfunction. No abdominal pain, nausea, vomiting, diarrhea. She ambulates with a walker 2/2 BLE weakness She thinks her waekness is slitghly worse since Thursday MRI showed postoperative complex fluid collection following right-sided laminectomy and fusion from L3-L5 which is compatible with the clinical suspicion of a large postoperative abscess. Small epidural component is seen posterior to L4 which is causing moderate compression of the thecal sac and developing bone marrow edema in L3, L4 and L5 which may be reactive or indicate developing osteomyelitis Her blood clx are positive for Staph auresu and back wound clx posistive for MSSA, Citrobacter and E.coli SHe is scheduled for surgery this pm Review of Systems Except as stated in HPI: all other systems reviewed are Neg Past Family Social History Allergies: Coded Allergies: Prednisone (Verified Adverse Reaction, Intermediate, Restlessness, 08/08/16) Past Medical History Sleep apnea-on CPAP HTN Depression GERD Past Surgical History L3 4, L4 5 laminectomy and fusion July 2016 Anterior cervical (C4-7) interbody fusion with C4-7 cervical plate Active Ordered Medications Medications where reviewed in EMR Antibiotics Include: vancomycin zosyn Family History Father: back problems and HTN Mother: cancer Social History Lives with Tobacco: denies Alcohol: none Illicit: denies Physical Exam Vital Signs Vital Signs Date Time Temp Pulse Resp B/P Pulse Ox O2 Delivery O2 Flow Rate FiO2 08/11/16 12:00 98.6 91 17 128/82 97 08/11/16 08:29 18 08/11/16 08:10 Room Air 08/11/16 08:00 86 08/11/16 08:00 97.7 82 16 110/57 94 08/11/16 04:00 99.3 91 18 104/52 94 08/11/16 00:00 99.2 95 18 111/58 92 08/10/16 21:56 Nasal Cannula 2.00 08/10/16 20:00 99.7 104 20 132/68 94 08/10/16 19:50 101 08/10/16 16:00 98.4 91 18 111/53 94 Physical Exam CONSTITUTIONAL/GENERAL: This is a morbidly obese patient, in no apparent distress. TUBES/LINES/DRAINS: SKIN: No jaundice, rashes, or lesions. Ecchymoses on upper extremities. No wounds seen anteriorly. Skin temperature appropriate. Not diaphoretic. HEAD: Atraumatic. Normocephalic. EYES: Pupils equal and round and reactive. Extraocular motions intact. No scleral icterus. No injection or drainage. Fundi not examined. ENT: Hearing grossly normal. Nose without bleeding or purulent drainage. Throat without visible erythema, exudates, masses, or lesions. CARDIOVASCULAR: Regular rate and rhythm without murmurs, gallops, or rubs. No JVD. Peripheral pulses symmetric. RESPIRATORY/CHEST: Symmetric, unlabored respirations. Clear to auscultation. Breath sounds equal bilaterally. No wheezes, rales, or rhonchi. GASTROINTESTINAL: Abdomen soft, non-tender, nondistended. No hepato-splenomegaly , or palpable masses. No guarding. Bowel sounds present. GENITOURINARY: Without palpable bladder distension. MUSCULOSKELETAL: Extremities without clubbing, cyanosis, or edema. No joint tenderness or effusion noted. No calf tenderness. No mottling or clubbing. NEUROLOGICAL: Awake and alert. Motor and sensory grossly within normal limits. Follows commands.Normal speech. Moves all extremities. PSYCHIATRIC: No obvious anxiety/depression. no apparent hallucinations or other psychotic thought process. Laboratory Date/Time Procedure Status Source Growth 08/10/16 11:30 Aerobic Blood Culture - Preliminary Resulted Blood Peripheral NO GROWTH IN 1 DAY 08/10/16 11:30 Anaerobic Blood Culture - Preliminary Resulted Blood Peripheral NO GROWTH IN 1 DAY 08/08/16 18:20 Gram Stain - Final Complete Wound Back 08/08/16 18:20 Wound Culture - Final Complete Staphylococcus Aureus Citrobacter Koseri Escherichia Coli 08/08/16 15:35 Aerobic Blood Culture - Final Complete Blood Peripheral Staphylococcus Aureus 08/08/16 15:35 Anaerobic Blood Culture - Final Complete Staphylococcus Aureus 08/08/16 15:30 Influenza Types A,B Antigen (KIA) - Final Complete Nasal Aspirate NEGATIVE FOR FLU A AND B ANTIGEN.... 08/08/16 15:14 Aerobic Blood Culture Received Blood Peripheral Pending 08/08/16 15:14 Anaerobic Blood Culture Received Blood Peripheral Pending Result Diagram: 08/10/16 0601 08/10/16 0601 Imaging Last Impressions Chest X-Ray 08/08/16 1751 Signed Impressions: Service Date/Time: Monday, August 08, 2016 18:18 - CONCLUSION: No acute disease. Eriberto Renae MD Lumbar Spine MRI 08/08/16 0000 Signed Impressions: Service Date/Time: Monday, August 08, 2016 20:26 - CONCLUSION: Large postoperative complex fluid collection following right-sided laminectomy and fusion from L3-L5 which is compatible with the clinical suspicion of a large postoperative abscess. Small epidural component is seen posterior to L4 which is causing moderate compression of the thecal sac. Developing bone marrow edema in L3, L4 and L5 which may be reactive or indicate developing osteomyelitis. Eriberto Renae MD Assessment and Plan Assessment and Plan Infected back wound, MSSA, Citrobacter, E.coli MSSA bacterermia - dc zosyn, vancomycin - start levaquine - start cefazoline - 2 D Rosie Briones MD Aug 11, 2016 12:50
[2016-08-11] MEDS ORDERED: GELFOAM SIZE 100 ONE (15:03)
[2016-08-11] MEDS ORDERED: GENTAMICIN SULFATE 80 MG/2 ML VIAL ONE (15:03)
[2016-08-11] MEDS ORDERED: THROMBIN (TOPICAL) 5,000 UNIT VIAL ONE (15:03)
[2016-08-11] MEDS ORDERED: BUPIVACAINE/EPINEPHRINE 0.5% 50 ML VIAL ONE (15:03)
[2016-08-11] MEDS ORDERED: VANCOMYCIN HCL 1000 MG VIAL ONE (15:06)
[2016-08-11] MEDS ORDERED: MIDAZOLAM HCL 2 MG/2 ML VIAL ONE (15:20)
--- NOTE | 2016-08-11 15:23 | EC ---
Study Study Date:08/11/2016 STUDY CONCLUSIONS SUMMARY - Left ventricle: The cavity size was normal. Wall thickness was normal. Systolic function was normal. The estimated ejection fraction was in the range of 55% to 60%. Wall motion was normal; there were no regional wall motion abnormalities. - Pulmonary arteries: Systolic pressure was mildly increased. PA peak pressure: 49mm Hg (S). If LV function is below 40, please consider prescribing an ACEI or ARB or document rationale for non-use. PROCEDURE DATA STUDY STATUS: Elective. Procedure: Transthoracic echocardiography. Image quality was suboptimal. Scanning was performed from the parasternal, apical, and subcostal acoustic windows. Study completion: The patient tolerated the procedure well. Transthoracic echocardiography. M-mode, complete 2D, complete spectral Doppler, and color Doppler. Patient status: Inpatient. CARDIAC ANATOMY LEFT VENTRICLE: The cavity size was normal. Wall thickness was normal. Systolic function was normal. The estimated ejection fraction was in the range of 55% to 60%. Wall motion was normal; there were no regional wall motion abnormalities. AORTIC VALVE: Trileaflet; normal thickness leaflets. Doppler: Transvalvular velocity was within the normal range. There was no stenosis. No regurgitation. Peak gradient: 12mm Hg (S). AORTA: Aortic root: The aortic root was normal in size. MITRAL VALVE: Structurally normal valve. Doppler: Transvalvular velocity was within the normal range. There was no evidence for stenosis. No regurgitation. Mean gradient: 3mm Hg (D). Peak gradient: 8mm Hg (D). LEFT ATRIUM: The atrium was normal in size. RIGHT VENTRICLE: The cavity size was normal. Wall thickness was normal. PULMONIC VALVE: Doppler: Transvalvular velocity was within the normal range. There was no evidence for stenosis. No regurgitation. TRICUSPID VALVE: Structurally normal valve. Doppler: Transvalvular velocity was within the normal range. No regurgitation. PULMONARY ARTERY: The main pulmonary artery was normal-sized. Systolic pressure was mildly increased. RIGHT ATRIUM: The atrium was normal in size. PERICARDIUM: There was no pericardial effusion. SYSTEMIC VEINS: Inferior vena cava: The vessel was normal in size. BASIC MEASUREMENTS ADULT Normal Left ventricle LV internal dimension, ED, chordal level, *54.8 mm 43-52 PLAX LV internal dimension, ES, chordal level, *43.5 mm 23-38 PLAX Fractional shortening, chordal level, PLAX *21 % >29 LV posterior wall thickness, ED 8.45 mm IVS/LVPW ratio, ED 0.94 <1.3 Ventricular septum Septal thickness, ED 7.93 mm Left atrium Anterior-posterior dimension 29 mm Right ventricle RV internal dimension, ED, PLAX 24.2 mm 19-38 DOPPLER MEASUREMENTS ADULT Normal Main pulmonary artery Pressure, S *49 mm Hg =30 Aortic valve Peak velocity, S 174 cm/s VTI, S 43.1 cm Peak gradient, S 12 mm Hg Mitral valve Peak E-wave velocity 91.8 cm/s Peak A-wave velocity 69.6 cm/s Mean velocity, D 77.3 cm/s Mean gradient, D 3 mm Hg Peak gradient, D 8 mm Hg Peak E/A ratio 1.3 Tricuspid valve Regurgitant peak velocity 292 cm/s Peak RV-RA gradient, S 34 mm Hg Maximal regurgitant velocity 292 cm/s Systemic veins Estimated CVP 15 mm Hg Right ventricle RV pressure, S *49 mm Hg <30 LEGEND: Mean values are shown as u=mean value. Asterisk (*) smith values outside specified normal range. Prepared and signed by Dheeraj Rodriguez [id number]
[2016-08-11] MEDS ORDERED: PHARMACY ORDERED LAB XX ONE (15:45)
[2016-08-11] MEDS: LEVOFLOXACIN 750 MG PREMIX INJ 150 ML IV SCH ×2 (16:00→20:15)
[2016-08-11] MEDS ORDERED: SUGAMMADEX SODIUM 200 MG/2 ML VIAL IV PUSH ONE ×2 (16:54)
--- NOTE | 2016-08-11 17:53 | PD.OP ---
Operative Report Date of Surgery: Aug 11, 2016 Preoperative Diagnosis: Lumbar wound infection with subcutaneous fluid/abscess Postoperative Diagnosis: Same Procedure: Lumbar wound incision and debridement, subcutaneous and lumbar fascia Anesthesia: Gen. endotracheal by Tiffani Doty Surgeon: Narayan Monk M.D. Crop Supervisor(s): Hedy Zuniga Operation and Findings: Following initiation of general endotracheal anesthesia Corcoran catheter and sequential compression devices were placed and she was in turn prone position on a Efrain table with chest rolls and all pressure points adequately padded. The lumbar region was prepped with ChloraPrep and sterilely draped. Previous incision site ady were removed prior to the prepping and draping. Local anesthesia with 0.5% Marcaine with epinephrine injected in the incision opened and identified pustular collection in the subcutaneous fatty layer which extended all the way to the lumbodorsal fascia. This was drained and culture sent out. The skin edges as well as the subcutaneous fatty layer was debrided along with the lumbar dorsal fascia until it was more vascular and no further pus pockets were noted. The infection did not appear to extend into the spinal canal. Copious irrigation with vancomycin solution was undertaken. The skin was then approximated using #1 Prolene interrupted sutures. A 10 mm JUDIHT drain was also placed and the subcutaneous layer and secured the exit site with a 2-0 nylon tie and connected to a suction bulb. Sterile dressing was then applied and the patient turned spine position and extubated and taken recovery room. There were no intraoperative complications and all sponge and needle count was correct at the end the procedure. Estimated blood loss about 20 cc. Narayan Monk MD Aug 11, 2016 17:53 Narayan Monk MD Aug 11, 2016 17:53
[2016-08-11] MEDS ORDERED: ZOLPIDEM TARTRATE 5 MG TAB PO PRN (18:00)
[2016-08-11] MEDS ORDERED: BISACODYL 10 MG SUPP PR PRN (18:00)
[2016-08-11] MEDS ORDERED: CYCLOBENZAPRINE HCL 10 MG TAB PO PRN (18:00)
[2016-08-11] MEDS ORDERED: RESP: ALBUTEROL 2.5 MG/3 ML NEB (PRN) NEB (18:00)
[2016-08-11] MEDS ORDERED: MENTHOL LOZENGE SUCK-ON PRN (18:00)
[2016-08-11] MEDS ORDERED: PROMETHAZINE INJ 25 MG/ML VIAL IM PRN (18:00)
[2016-08-11] MEDS ORDERED: ALUMINUM/MAGNESIUM/SIMETH 30 ML CUP PO PRN (18:00)
[2016-08-11] MEDS ORDERED: MAGNESIUM HYDROXIDE SUSP 30 ML CUP PO PRN (18:00)
[2016-08-11] MEDS ORDERED: SODIUM CHLORIDE 0.9% FLUSH 5 ML FLUSH IVF PRN (18:00)
[2016-08-11] MEDS ORDERED: cloNIDine HCL 0.1 MG TAB PO PRN (18:00)
[2016-08-11] MEDS ORDERED: fentaNYL CITRATE 250 MCG/5 ML AMP ONE (18:42)
[2016-08-11 20:00] VITALS: BP 121/63; PULSE 75; RESP 22; TEMP 97; O2SAT 95
[2016-08-11] MEDS: SODIUM CHLORIDE 0.9% FLUSH 5 ML FLUSH IVF SCH (20:14)
[2016-08-11] MEDS: GABAPENTIN 300 MG CAP PO SCH (20:14)
[2016-08-11] MEDS: ceFAZolin 2 GM PREMIX 50 ML IV SCH (20:14)
[2016-08-11] MEDS: DOCUSATE SODIUM 100 MG CAP PO SCH (20:43)
[2016-08-11 22:07] VITALS: O2SAT 96
[2016-08-12] VITALS (10 sets, daily range): BP systolic 107–137; BP diastolic 55–72; PULSE 77–90; RESP 16–24; TEMP 97.4–99.2; O2SAT 94–98
[2016-08-12] MEDS: ceFAZolin 2 GM PREMIX 50 ML IV SCH ×2 (00:05→08:44)
[2016-08-12] MEDS: ACETAMINOPHEN/HYDROcodone 325 MG/10 MG TAB PO PRN ×5 (00:06→19:08)
[2016-08-12] MEDS ORDERED: DO NOT ADM ANY ANTICOAGULANT DRUGS XX PRN (01:30)
[2016-08-12 06:10] LABS: AUTOMATED NEUTROPHIL # 4.7 TH/MM3 (1.8-7.7); BASOPHIL % 0.4 % (0.0-2.0); EOSINOPHIL % 0.1 % (0.0-4.0); HEMO FLAGS DIFF FINAL; LYMPH % 12.1 % (9.0-44.0); LYMPHOCYTE # 0.7 TH/MM3 (1.0-4.8); MEAN CELL VOLUME 90.6 FL (80.0-100.0); MEAN CORPUSCULAR HEMOGLOBIN 31.5 PG (27.0-34.0); MEAN CORPUSCULAR HGB CONC 34.7 % (32.0-36.0); MONO % 6.5 % (0.0-8.0); NEUT % 80.9 % (16.0-70.0); PLATELET COUNT 280 TH/MM3 (150-450); RED BLOOD COUNT 2.98 MIL/MM3 (4.00-5.30); RED CELL DISTRIBUTION WIDTH 14.5 % (11.6-17.2); WHITE BLOOD COUNT 5.9 TH/MM3 (4.0-11.0)
[2016-08-12 06:34] LABS: BICARBONATE 25.1 MEQ/L (21.0-32.0); MAGNESIUM 2.1 MG/DL (1.5-2.5); POTASSIUM 3.8 MEQ/L (3.5-5.1)
[2016-08-12] MEDS ORDERED: SODIUM CHLOR 0.9% 1000 ML INJ 1,000 ML IV SCH (07:00)
--- NOTE | 2016-08-12 08:23 | HHI.FPPN ---
Subjective Remarks Patient seen and evaluated this morning. No acute events overnight. Yesterday afternoon patient will for abscess I/D with Dr. Hanley. She states that she feels well this morning who has had 1 bowel movement regular gas. She has mild tenderness at the incision site, but otherwise her pain is well controlled. She complains of calf tenderness to palpation, however she states that has been her baseline since her before her surgery. She has no other complaints this morning and denies any fevers, chills, shortness breath, chest pain, or NVD. (Lee Dover MD R1) Objective Vitals Vital Signs Date Time Temp Pulse Resp B/P Pulse Ox O2 Delivery O2 Flow Rate FiO2 08/12/16 04:00 97.4 77 20 113/72 95 08/12/16 01:41 16 08/12/16 00:29 80 08/12/16 00:00 97.8 78 20 110/65 96 08/11/16 22:07 96 Nasal Cannula 3.00 08/11/16 20:00 97.0 75 22 121/63 95 08/11/16 18:15 98.6 86 16 125/75 94 Nasal Cannula 3 08/11/16 18:00 85 16 122/67 94 Nasal Cannula 3 08/11/16 17:45 86 16 118/79 94 Nasal Cannula 3 08/11/16 17:28 99.3 117 16 120/71 96 Nasal Cannula 3 08/11/16 13:41 18 08/11/16 12:00 98.6 91 17 128/82 97 I/O 08/11/16 08/11/16 08/11/16 08/12/16 08/12/16 08/12/16 07:00 15:00 23:00 07:00 15:00 23:00 Intake Total 790 ml 0 ml 1320 ml 720 ml Output Total 900 ml 800 ml 1070 ml 680 ml Balance -110 ml -800 ml 250 ml 40 ml Intake Oral 240 ml 0 ml 320 ml 720 ml IV Total 550 ml 300 ml Other 700 ml Output Urine Total 900 ml 800 ml 1050 ml 630 ml Drainage Total 50 ml Estimated Blood Loss 20 ml # Bowel Movements 0 2 0 0 (Lee Dover MD R1) Result Diagram: 08/12/1652308/12/16523 Objective Remarks GEN: Obese female lying sitting up in her chair with abdominal binder in no acute distress. SKIN: Incisions site covered but bandage shows no real drainage. Bandage was changed last night. CARDIOVASCULAR: Distant heart sounds but with regular rate and rhythm without obvious murmurs, gallops, rubs. RESPIRATORY: Clear to auscultation. Breath sounds equal bilaterally. No wheezes , rales, or rhonchi. ABD: Soft, nondistended with +BS. EXT: No edema. Calf tenderness to anterior palpation (baseline). NEURO/PSYCH: Awake, alert. Appropriate insight and judgment. Normal speech. Some mild numbness and tingling to the bilateral lower extremities, however patient is able to move extremities well. (Lee Dover MD R1) A/P Assessment and Plan 51-year-old female with a PMH significant for sleep apnea, GERD, HTN. Admitted for postoperative epidural abscess Discharge Planning Timeline unknown, pending improvement in clinical course and resolution of bacteremia. Patient and family prefer [facility] when she is ready to be DC. DW: Dr. Cuadra and Dr. Gutierrez (Lee Dover MD R1) Attending Attestation Patient seen and examined. Case reviewed and discussed with the resident team. Agree with plan of care as discussed with me and documented in the resident note. (Sapphire Cuadra MD) Problem List: (1) Epidural abscess Status: Acute Plan: Postop laminectomy on 07/25/16. Patient was initially doing well but then developed uncontrolled pain, fevers, serosanguineous drainage from incision site on the day of this admission. Met sepsis criteria on admission with fever, elevated pulse, leukocytosis. Physical exam significant for active drainage from site. -Resolved leukocytosis -Blood cultures positive with MSSA -Wound culture positive for Escherichia coli, Citrobacter, Staph Aureus -Repeat blood cultures negative x1 day -Wound cultures x3 pending from I/D on 08/11/16 -Refrain from showers until cleared from Neurosurgery ID consulted: Appreciate recommendations * DC Vancomycin and Cefepime * Start Levaquin and Cefazolin 08/11 * Echo: EF 55-60% with normal systolic function of the ventricles. No wall motion abnormalities. Pulmonary artery pressure mildly increased. Neurosurgery consult: Appreciate recommendations * Neuro checks * Patient's neurological exam remained stable without evidence of radiculopathy or cauda equina syndrome * May require further opening of the wound site and drainage * Strictly avoid positioning the patient flat on her back. * I/D of abscess with Dr. Hanley on 08/12/16, pain controlled with +BM, cultures pending Images: * Lumbar spine MRI: Large postoperative complex fluid collection following right -sided laminectomy and fusion from L3/L5 which is compatible with the clinical suspicion of a large postoperative abscess. Small epidural component is seen posterior to L4 which is causing moderate compression of the thecal sac. Developing bone marrow edema in L3, L4 and L5 which may be reactive or indicate developing osteomyelitis Medications: * Zosyn () * Vancomycin () * Clindamycin (08/08) * Levaquin (08/11- ) * Cefazolin (08/11- ) * Continue home gabapentin dosing * Continue home duloxetine (2) Sepsis Status: Resolved Plan: See plan above (3) SOLO (acute kidney injury) Status: Acute Plan: Patient with creatinine of 2.53 -NS at 100 ml/hr -Monitor I/Os -Repeat BMP at 1300 (4) Darrell infection Status: Acute Plan: Patient found to have darrell on under side of breasts and pelvic region -Nystatin ointment to be applied to affected areas Q8H (5) Hypertension Status: Chronic Plan: Hold home lisinopril as patient has been hypotensive restart if needed (6) Nutrition, metabolism, and development symptoms Status: Acute Plan: Diet: Regular Fluids: NS at 100ml/hr Electrolytes: unremarkable DVT prophylaxis: SCDs, chemical anticoagulation on hold due to possible operative treatment GI prophylaxis: Heparin as she is at risk for DVT. can hold if she needs any procedures Chronic conditions: * Sleep apnea: home CPAP (Lee Dover MD R1) Problem Qualifiers (1) Sepsis: Qualified Code: A41.01 - Sepsis due to Methicillin susceptible Staphylococcus aureus (2) Hypertension: Qualified Code: I10 - Essential hypertension Lee Dover MD R1 Aug 12, 2016 08:23 Sapphire Cuadra MD Aug 14, 2016 16:25
[2016-08-12] MEDS: DULoxetine HCl DR 30 MG CAP PO SCH (08:43)
[2016-08-12] MEDS: GABAPENTIN 100 MG CAP PO SCH (08:43)
[2016-08-12] MEDS: PANTOPRAZOLE SOD 40 MG DELAYED RELEASE TAB PO SCH (08:43)
[2016-08-12] MEDS: SODIUM CHLORIDE 0.9% FLUSH 5 ML FLUSH IVF SCH ×2 (08:49→19:44)
[2016-08-12] MEDS: DOCUSATE SODIUM 100 MG CAP PO SCH ×2 (08:49→19:43)
[2016-08-12] MEDS: NYSTATIN 100,000 U/GM OINT 15 GM TUBE TOPICAL SCH ×3 (09:36→22:00)
[2016-08-12] MEDS: SODIUM CHLOR 0.9% 1000 ML INJ 1,000 ML IV SCH ×2 (10:02→22:45)
--- NOTE | 2016-08-12 11:55 | HHI.NSPN ---
(Ryan Soto) History Chief Complaint: Incisional soreness s/p incision and drainage of lumbar wound (Ryan Soto) Interval History 08/12/16: Pt with incisional soreness controlled. She feels the strength is a little better today. Pain in right leg improved now more positional. No fever or chills. (Ryan Soto) Review of Systems General: Negative for: fever, chills, insomnia Respiratory: Negative for: shortness of breath, cough, sputum Cardiovascular: Negative for: chest pain Gastrointestinal: Negative for: nausea, vomitting, diarrhea, constipation ( Ryan Soto) Exam Results Vital Signs Date Time Temp Pulse Resp B/P Pulse Ox O2 Delivery O2 Flow Rate FiO2 08/12/16 08:34 96 Nasal Cannula 21 08/12/16 08:00 98.1 82 17 123/68 08/11/16 22:07 3.00 Intake and Output 08/11/16 08/11/16 08/12/16 08:00 16:00 00:00 Intake Total 790 ml 0 ml 1320 ml Output Total 900 ml 800 ml 1100 ml Balance -110 ml -800 ml 220 ml (Ryan Soto) Physical Examination Resp: CTA bilaterally Heart: NSR no murmurs Abd: Soft positive bs Skin: Incision with retention sutures in place. Bandage changed with serous drainage. New bandage placed. Muscle: 0/5 EHL and dorsiflexion strength. 2-3/5 gastrocsoleus. 4/5 right knee extension. 3-4/5 right iliopsoas. 5/5 left lower extremity. Neuro: Pt awake. A little groggy. Follows commands well. Speech appropriate. (Ryan Soto) Lab, Micro, Other Results Laboratory Tests Test 08/11/16 08/12/16 15:29 05:24 Vancomycin Level Trough 31.1 MCG/ML White Blood Count 5.9 TH/MM3 Red Blood Count 2.98 MIL/MM3 Hemoglobin 9.4 GM/DL Hematocrit 27.0 % Mean Corpuscular Volume 90.6 FL Mean Corpuscular Hemoglobin 31.5 PG Mean Corpuscular Hemoglobin 34.7 % Concent Red Cell Distribution Width 14.5 % Platelet Count 280 TH/MM3 Mean Platelet Volume 6.6 FL Neutrophils (%) (Auto) 80.9 % Lymphocytes (%) (Auto) 12.1 % Monocytes (%) (Auto) 6.5 % Eosinophils (%) (Auto) 0.1 % Basophils (%) (Auto) 0.4 % Neutrophils # (Auto) 4.7 TH/MM3 Lymphocytes # (Auto) 0.7 TH/MM3 Monocytes # (Auto) 0.4 TH/MM3 Eosinophils # (Auto) 0.0 TH/MM3 Basophils # (Auto) 0.0 TH/MM3 CBC Comment DIFF FINAL Differential Comment Sodium Level 145 MEQ/L Potassium Level 3.8 MEQ/L Chloride Level 109 MEQ/L Carbon Dioxide Level 25.1 MEQ/L Anion Gap 11 MEQ/L Blood Urea Nitrogen 13 MG/DL Creatinine 2.53 MG/DL Estimat Glomerular Filtration 20 ML/MIN Rate Random Glucose 99 MG/DL Calcium Level 8.2 MG/DL Magnesium Level 2.1 MG/DL 08/11/16 08/11/16 08/12/16 15:00 23:00 07:00 Intake Total 0 ml 1320 ml 720 ml Output Total 800 ml 1070 ml 680 ml Balance -800 ml 250 ml 40 ml Intake Oral 0 ml 320 ml 720 ml IV Total 300 ml Other 700 ml Output Urine Total 800 ml 1050 ml 630 ml Drainage Total 50 ml Estimated Blood Loss 20 ml # Bowel Movements 2 0 0 (Ryan Soto) Medical Decision Making Impression and Plan A: 51 y/o FM s/p incision and drainage of lumbar wound Hx lumbar fusion with instrumentation P: Continue with antibiotics Continue with frequent bandage changes. Continue with medical management (Ryan Soto) Attending Statement The exam, history, and the medical decision-making described in the above note were completed with the assistance of the mid-level provider. I reviewed and agree with the findings presented. I attest that I had a [id number] encounter with the patient on the same day, and personally performed and documented my assessment and findings in the medical record. (Narayan Monk MD) Ryan Soto Aug 12, 2016 11:55 Narayan Monk MD Aug 12, 2016 12:08
[2016-08-12 13:35] LABS: BICARBONATE 24.1 MEQ/L (21.0-32.0); POTASSIUM 3.4 MEQ/L (3.5-5.1)
[2016-08-12] MEDS ORDERED: SODIUM CHLOR 0.9% 1000 ML INJ 1,000 ML IV ONE (17:45)
[2016-08-12] MEDS ORDERED: POTASSIUM CHLORIDE 10 MEQ CONTROLLED RELEASE TAB PO ONE (18:00)
[2016-08-12] MEDS: ceFAZolin 1,000 MG/NS 100 ML IV SCH ×2 (19:43)
[2016-08-12] MEDS: ONDANSETRON HCL 4 MG/2 ML VIAL IV PRN (19:43)
[2016-08-12] MEDS: GABAPENTIN 300 MG CAP PO SCH (19:43)
[2016-08-12] MEDS: HEPARIN SODIUM - SQ 10,000 UNITS/ML VIAL SQ SCH (22:45)
[2016-08-13] VITALS (7 sets, daily range): BP systolic 117–158; BP diastolic 63–88; PULSE 75–91; RESP 17–22; TEMP 97.6–98.8; O2SAT 93–96
[2016-08-13] MEDS: ACETAMINOPHEN/HYDROcodone 325 MG/10 MG TAB PO PRN ×5 (03:15→21:11)
[2016-08-13] MEDS: NYSTATIN 100,000 U/GM OINT 15 GM TUBE TOPICAL SCH ×3 (06:00→21:06)
[2016-08-13] MEDS: HEPARIN SODIUM - SQ 10,000 UNITS/ML VIAL SQ SCH ×3 (06:02→21:05)
[2016-08-13] MEDS: SODIUM CHLOR 0.9% 1000 ML INJ 1,000 ML IV SCH ×3 (06:09→21:02)
[2016-08-13 06:17] LABS: HEMATOCRIT 26.7 % (35.0-46.0); MEAN CELL VOLUME 91.4 FL (80.0-100.0); MEAN CORPUSCULAR HEMOGLOBIN 31.1 PG (27.0-34.0); MEAN CORPUSCULAR HGB CONC 34.1 % (32.0-36.0); PLATELET COUNT 241 TH/MM3 (150-450); RED BLOOD COUNT 2.93 MIL/MM3 (4.00-5.30); RED CELL DISTRIBUTION WIDTH 14.4 % (11.6-17.2); REVIEW FLAG FINAL; WHITE BLOOD COUNT 5.9 TH/MM3 (4.0-11.0)
[2016-08-13 06:36] LABS: BICARBONATE 23.9 MEQ/L (21.0-32.0); POTASSIUM 3.7 MEQ/L (3.5-5.1)
[2016-08-13] MEDS: DOCUSATE SODIUM 100 MG CAP PO SCH ×2 (07:57→21:05)
[2016-08-13] MEDS: GABAPENTIN 100 MG CAP PO SCH (07:57)
[2016-08-13] MEDS: DULoxetine HCl DR 30 MG CAP PO SCH (07:57)
[2016-08-13] MEDS: PANTOPRAZOLE SOD 40 MG DELAYED RELEASE TAB PO SCH (07:58)
[2016-08-13] MEDS: ceFAZolin 1,000 MG/NS 100 ML IV SCH ×4 (07:58→21:15)
[2016-08-13] MEDS: SODIUM CHLORIDE 0.9% FLUSH 5 ML FLUSH IVF SCH ×2 (08:00→21:00)
--- NOTE | 2016-08-13 08:32 | RADRPT ---
EXAM DATE/TIME: 08/13/2016 08:03 [facility] COMPARISON: No previous studies available for comparison. INDICATIONS : Increased Bun and Creatine. MEDICAL HISTORY : Hypertension. Gastroesophageal reflux disease. SURGICAL HISTORY : Tonsillectomy. Laminectomy. ENCOUNTER: Initial ACUITY: 1 day PAIN SCORE: 4/10 LOCATION: Bilateral flank MEASUREMENTS: RIGHT KIDNEY: 13.1 x 5.7 x 5.9 cm LEFT KIDNEY: 13.2 x 6.0 x 6.3 cm FINDINGS: RIGHT KIDNEY: Renal cortex is normal in thickness and echotexture. No hydronephrosis, stone, or mass. LEFT KIDNEY: Renal cortex is normal in thickness and echotexture. No hydronephrosis, stone, or mass. BLADDER: Within normal limits given the degree of distension. CONCLUSION: Normal ultrasound of the urinary system. Thuan Lira MD on August 13, 2016 at 8:30 Board Certified Radiologist. This report was verified electronically.
--- NOTE | 2016-08-13 09:15 | HHI.NSPN ---
History Chief Complaint: Incisional soreness s/p incision and drainage of lumbar wound Interval History 08/12/16: Pt with incisional soreness controlled. She feels the strength is a little better today. Pain in right leg improved now more positional. No fever or chills. 08/13/16: Pt states incisional soreness improved today. Less burning than yesterday. She states numbness in right leg stable but pain has resolved. Weakness in right leg unchanged. Review of Systems General: Negative for: fever, chills, insomnia Respiratory: Negative for: shortness of breath, cough, sputum Cardiovascular: Negative for: chest pain Gastrointestinal: Negative for: nausea, vomitting, diarrhea, constipation Exam Results Vital Signs Date Time Temp Pulse Resp B/P Pulse Ox O2 Delivery O2 Flow Rate FiO2 08/13/16 09:07 93 21 08/13/16 08:00 97.9 82 18 117/63 08/12/16 21:00 Room Air 08/12/16 08:40 3.00 Intake and Output 08/12/16 08/12/16 08/13/16 08:00 16:00 00:00 Intake Total 720 ml 1910 ml 720 ml Output Total 650 ml 1200 ml 779 ml Balance 70 ml 710 ml -59 ml Physical Examination Resp: CTA bilaterally Heart: NSR no murmurs Abd: Soft positive bs Skin: Incision with retention sutures in place. Bandage changed with serous drainage by RN. Muscle: 0/5 EHL and dorsiflexion strength. 2-3/5 gastrocsoleus. 4/5 right knee extension. 3-4/5 right iliopsoas. 5/5 left lower extremity. Neuro: Pt more awake this morning. Follows commands well. Speech appropriate. Lab, Micro, Other Results Last Impressions Renal Ultrasound 08/13/16 0000 Signed Impressions: Service Date/Time: Saturday, August 13, 2016 08:03 - CONCLUSION: Normal ultrasound of the urinary system. Thuan Lira MD Chest X-Ray 08/08/16 1751 Signed Impressions: Service Date/Time: Monday, August 08, 2016 18:18 - CONCLUSION: No acute disease. Eriberto Renae MD Lumbar Spine MRI 08/08/16 0000 Signed Impressions: Service Date/Time: Monday, August 08, 2016 20:26 - CONCLUSION: Large postoperative complex fluid collection following right-sided laminectomy and fusion from L3-L5 which is compatible with the clinical suspicion of a large postoperative abscess. Small epidural component is seen posterior to L4 which is causing moderate compression of the thecal sac. Developing bone marrow edema in L3, L4 and L5 which may be reactive or indicate developing osteomyelitis. Eriberto Renae MD Laboratory Tests Test 08/12/16 08/13/16 12:50 05:35 Sodium Level 145 MEQ/L 143 MEQ/L Potassium Level 3.4 MEQ/L 3.7 MEQ/L Chloride Level 107 MEQ/L 110 MEQ/L Carbon Dioxide Level 24.1 MEQ/L 23.9 MEQ/L Anion Gap 14 MEQ/L 9 MEQ/L Blood Urea Nitrogen 15 MG/DL 16 MG/DL Creatinine 2.82 MG/DL 3.48 MG/DL Estimat Glomerular Filtration 18 ML/MIN 14 ML/MIN Rate Random Glucose 87 MG/DL 112 MG/DL Calcium Level 8.2 MG/DL 7.5 MG/DL White Blood Count 5.9 TH/MM3 Red Blood Count 2.93 MIL/MM3 Hemoglobin 9.1 GM/DL Hematocrit 26.7 % Mean Corpuscular Volume 91.4 FL Mean Corpuscular Hemoglobin 31.1 PG Mean Corpuscular Hemoglobin 34.1 % Concent Red Cell Distribution Width 14.4 % Platelet Count 241 TH/MM3 Mean Platelet Volume 6.7 FL 08/12/16 08/12/16 08/13/16 15:00 23:00 07:00 Intake Total 1910 ml 720 ml 3061 ml Output Total 1200 ml 750 ml 1029 ml Balance 710 ml -30 ml 2032 ml Intake Oral 1910 ml 720 ml 720 ml IV Total 2341 ml Output Urine Total 1200 ml 750 ml 1000 ml Drainage Total 29 ml # Bowel Movements 2 0 0 Medical Decision Making Impression and Plan A: 51 y/o FM s/p incision and drainage of lumbar wound Hx lumbar fusion with instrumentation Decreased kidney function P: Continue with antibiotics Continue with frequent bandage changes. Continue with medical management Nephrology has been consulted for decreased renal function. Ryan Soto Aug 13, 2016 09:15
--- NOTE | 2016-08-13 11:54 | HHI.FPPN ---
Subjective Remarks No acute events overnight. Vital signs unremarkable. This morning patient states that she feels well and has no concerns. Denies chest pain, SOB. Continues to have a decreased appetite but is slowly increasing fluid/food intake. (Clair Phan MD R2) Objective Vitals Vital Signs Date Time Temp Pulse Resp B/P Pulse Ox O2 Delivery O2 Flow Rate FiO2 08/13/16 09:17 18 08/13/16 09:07 93 21 08/13/16 08:20 Room Air 08/13/16 08:00 97.9 82 18 117/63 93 08/13/16 04:00 98.8 91 22 158/88 96 08/13/16 00:00 98.5 75 22 119/64 96 08/12/16 21:00 89 08/12/16 21:00 Room Air 08/12/16 20:00 99.2 90 24 137/64 98 08/12/16 16:00 98.3 84 16 107/55 94 08/12/16 15:58 96 21 08/12/16 12:00 98.3 81 16 119/62 96 I/O 08/12/16 08/12/16 08/12/16 08/13/16 08/13/16 08/13/16 07:00 15:00 23:00 07:00 15:00 23:00 Intake Total 720 ml 1910 ml 720 ml 3061 ml Output Total 680 ml 1200 ml 750 ml 1029 ml Balance 40 ml 710 ml -30 ml 2032 ml Intake Oral 720 ml 1910 ml 720 ml 720 ml IV Total 2341 ml Output Urine Total 630 ml 1200 ml 750 ml 1000 ml Drainage Total 50 ml 29 ml # Bowel Movements 0 2 0 0 (Clair Phan MD R2) Result Diagram: 08/13/16 0535 08/13/16 0535 Objective Remarks GEN: Obese female laying in bed in no acute distress. SKIN: low output from drain at incision site CARDIOVASCULAR: Distant heart sounds but with regular rate and rhythm without obvious murmurs, gallops, rubs. RESPIRATORY: Clear to auscultation anteriorly. Breath sounds equal bilaterally. No wheezes, rales, or rhonchi. EXT: No edema. No calf tenderness. NEURO/PSYCH: Awake, alert. Appropriate insight and judgment. Normal speech. ( Clair Phan MD R2) A/P Assessment and Plan 51-year-old female with a PMH significant for sleep apnea, GERD, HTN. Admitted for postoperative epidural abscess Discharge Planning 2-4days pending eval from nephrology and placement at discharge. Unable to go to [facility] as her insurance ran out of benefits. CM looking more into this. PT recommending Rehab SDW: Dr. Cuadra (Clair Phan MD R2) Attending Attestation Patient seen and examined. Case reviewed and discussed with the resident team. Agree with plan of care as discussed with me and documented in the resident note. (Sapphire Cuadra MD) Problem List: (1) Epidural abscess Status: Acute Plan: Postop laminectomy on 07/25/16. Patient was initially doing well but then developed uncontrolled pain, fevers, serosanguineous drainage from incision site on the day of this admission. Met sepsis criteria on admission with fever, elevated pulse, leukocytosis. 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 No wall motion abnormalities. Pulmonary artery pressure mildly increased. Neurosurgery consult: Appreciate recommendations * Neuro checks * Patient's neurological exam remained stable without evidence of radiculopathy or cauda equina syndrome * I/D of abscess with Dr. Hanley on 08/12/16 Images: * Lumbar spine MRI: Large postoperative complex fluid collection following right -sided laminectomy and fusion from L3/L5 which is compatible with the clinical suspicion of a large postoperative abscess. Small epidural component is seen posterior to L4 which is causing moderate compression of the thecal sac. Developing bone marrow edema in L3, L4 and L5 which may be reactive or indicate developing osteomyelitis Medications: * Levaquin (08/11- ) * Cefazolin (08/11- ) * Zosyn () * Vancomycin () * Clindamycin (08/08) * Continue home gabapentin dosing * Continue home duloxetine (2) Sepsis Status: Resolved Plan: See plan above (3) SOLO (acute kidney injury) Status: Acute Plan: Patient with worsening creatinine despite fluids and discontinuation of vanc -Renal US unremarkable. Nephrology consulted: Appreciate recommendations -Continue fluids, see rate below -Monitor I/Os -Repeat BMP at 1400 (4) Darrell infection Status: Acute Plan: Patient found to have darrell on under side of breasts and pelvic region -Nystatin ointment to be applied to affected areas Q8H (5) Hypertension Status: Chronic Plan: Hold home lisinopril as patient has been hypotensive restart if needed (6) Nutrition, metabolism, and development symptoms Status: Acute Plan: Diet: Regular Fluids: NS at 125 ml/hr Electrolytes: unremarkable DVT prophylaxis: SCDs, chemical anticoagulation on hold due to possible operative treatment GI prophylaxis: Heparin Chronic conditions: * Sleep apnea: home CPAP (Clair Phan MD R2) Problem Qualifiers (1) Sepsis: Qualified Code: A41.01 - Sepsis due to Methicillin susceptible Staphylococcus aureus (2) Hypertension: Qualified Code: I10 - Essential hypertension Clair Phan MD R2 Aug 13, 2016 11:54 Sapphire Cuadra MD Aug 14, 2016 16:25
[2016-08-13 15:47] LABS: BICARBONATE 21.1 MEQ/L (21.0-32.0); POTASSIUM 3.7 MEQ/L (3.5-5.1)
--- NOTE | 2016-08-13 18:35 | MB ---
cc: JEROME ALFORD MD DATE OF CONSULTATION: 08/13/2016 REASON FOR CONSULTATION: Acute kidney injury with elevated BUN and creatinine. HISTORY OF PRESENT ILLNESS This is a 51-year-old female with past medical history of hypertension, gastroesophageal reflux disease, depression, history of sleep apnea, morbid obesity, was admitted August 08 for C. difficile discharge from a lumbar incision. The patient has recent L3-L4 and L4-L5 laminectomy and fusion surgery which was done last month and she has infection on the wound. Two blood cultures were positive for staph aureus and the wound culture grew out staph aureus and other bacteria also. The patient has been getting cephazolin and she was on vancomycin before, the last dose seems to be given on August 11, and then it was stopped. The patient had some nausea. There is no vomiting. She has decreased appetite, not eating well. There is no history of diarrhea. Her creatinine has been gradually going up. She is nonoliguric passing urine, and she is also started on IV fluid. PAST MEDICAL HISTORY: 1. Hypertension. 2. Gastroesophageal reflux disease. 3. Sleep apnea. 4. History of depression. 5. Morbid obesity PAST SURGICAL HISTORY: 1. History of C4-C5 interbody fusion surgery with cervical plate. 2. L3-L4, L5 laminectomy last month. REVIEW OF SYSTEMS: There is no history of fever, no sore throat. She has generalized weakness, feeling tired, has nausea, decreased appetite, no shortness of breath, no chest pain, no palpitations. She still has some back pain. No history of diarrhea. No dysuria, hematuria. She did not notice any decrease in the urine output. SOCIAL HISTORY: The patient is , lives with her . There is no history of smoking or alcohol use. FAMILY HISTORY: Positive for hypertension, on the father's side. ALLERGIES: PREDNISONE MEDICATIONS: Currently she is on: 1. Normal saline at 125 an hour. 2. Colace 100 mg b.i.d. 3. Cymbalta 30 mg once a day. 4. Neurontin 200 mg once a day. 5. Protonix 40 mg once a day. 6. Neurontin 300 mg q.h.s. 7. Cephazolin 1 gram IV q. 12-hour. 8. Levaquin 750 mg IV q.48 h. 9. Heparin 5000 units q. 8-hour. 10. Nystatin 11. Colace 100 mg as needed. 12. Zofran as needed. 13. [place] as needed. 14. Albuterol as needed. EXAMINATION The patient is awake, alert. She is sitting in the chair not in acute distress. VITAL SIGNS: Last blood pressure 123/70, temperature 97.6, oxygen saturation 90-94%. There is no significant documented hypotensive episode, the lowest recorded was 97/56 and this was on August 10, temperature 97.6. HEENT: Pupils equally reacting to light. Nonicteric. Conjunctivae pale. Neck: Supple. JVD is not elevated. Lungs: The patient has bilateral decreased air entry with occasional wheezing. Heart: S1-S2, regular rhythm. Abdomen is obese, soft, there is no tenderness. Extremities: She has mild edema in the legs. INVESTIGATIONS: WBC count is 5.9, hemoglobin 9.1, platelet count of 241, sodium 143, potassium 3.7, chloride 111, bicarb 21.1, BUN 16, creatinine 3.7, calcium 8.2, last vanco level on 08/11 was 31.1. Urinalysis showing that there is no protein. IMAGING STUDIES The patient had ultrasound of the kidneys done which shows the kidneys looked normal in size and there was no hydronephrosis. Chest x-ray was done which shows lung albright clear. ASSESSMENT/PLAN 1. Acute kidney injury 2. History of hypertension 3. MRSA wound infection with bacteremia. 4. Anemia. 5. Post lumbar surgery 6. History of sleep apnea. The patient has nonoliguric renal failure. Her creatinine has been persistently increasing. The differential diagnosis for acute renal failure will be either ATN related to infection or possibility of post infectious glomerulonephritis which is unlikely. The patient does not have proteinuria or there is a possibility of ATN related to drugs especially the vancomycin, or interstitial nephritis. I will check the urine for sodium and osmolality and eosinophils and agree with continuing IV fluids and avoid giving any nephrotoxins. Follow the urine output, the BUN and creatinine. I will also check the complement levels for possibility of post infectious glomerulonephritis which is unlikely. Will get the phosphorus level in the morning. Thank you for the consultation. I will follow the patient while she in the hospital. Further recommendations will be obtained in the due course. MD LAUREN Villegas/SAHARA /5:29 PM /6:11 PM
[2016-08-13] MEDS: LEVOFLOXACIN 750 MG PREMIX INJ 150 ML IV SCH (21:01)
[2016-08-13] MEDS: GABAPENTIN 300 MG CAP PO SCH (21:05)
--- NOTE | 2016-08-13 21:39 | HHI.IDPN ---
Subjective Subjective Remarks Pt is in ARF since yday sp surgery 08/11: Lumbar wound incision and debridement, subcutaneous and lumbar fascia Antibiotics cefazoline levaquine Allergies: Coded Allergies: Prednisone (Verified Adverse Reaction, Intermediate, Restlessness, 08/08/16) Objective . Vital Signs Date Time Temp Pulse Resp B/P Pulse Ox O2 Delivery O2 Flow Rate FiO2 08/13/16 20:00 97.9 85 17 133/79 96 08/13/16 18:24 94 21 08/13/16 17:29 18 08/13/16 16:00 97.6 78 18 123/78 94 08/13/16 09:07 93 21 08/13/16 08:20 Room Air 08/13/16 08:00 97.9 82 18 117/63 93 08/13/16 04:00 98.8 91 22 158/88 96 08/13/16 00:00 98.5 75 22 119/64 96 08/12/16 08/12/16 08/13/16 15:00 23:00 07:00 Intake Total 1910 ml 720 ml 3061 ml Output Total 1200 ml 750 ml 1029 ml Balance 710 ml -30 ml 2032 ml Intake Oral 1910 ml 720 ml 720 ml IV Total 2341 ml Output Urine Total 1200 ml 750 ml 1000 ml Drainage Total 29 ml # Bowel Movements 2 0 0 . Laboratory Tests Test 08/12/16 08/13/16 05:24 05:35 White Blood Count 5.9 TH/MM3 5.9 TH/MM3 Red Blood Count 2.98 MIL/MM3 2.93 MIL/MM3 Hemoglobin 9.4 GM/DL 9.1 GM/DL Hematocrit 27.0 % 26.7 % Mean Corpuscular Volume 90.6 FL 91.4 FL Mean Corpuscular Hemoglobin 31.5 PG 31.1 PG Mean Corpuscular Hemoglobin 34.7 % 34.1 % Concent Red Cell Distribution Width 14.5 % 14.4 % Platelet Count 280 TH/MM3 241 TH/MM3 Mean Platelet Volume 6.6 FL 6.7 FL Neutrophils (%) (Auto) 80.9 % Lymphocytes (%) (Auto) 12.1 % Monocytes (%) (Auto) 6.5 % Eosinophils (%) (Auto) 0.1 % Basophils (%) (Auto) 0.4 % Neutrophils # (Auto) 4.7 TH/MM3 Lymphocytes # (Auto) 0.7 TH/MM3 Monocytes # (Auto) 0.4 TH/MM3 Eosinophils # (Auto) 0.0 TH/MM3 Basophils # (Auto) 0.0 TH/MM3 CBC Comment DIFF FINAL Differential Comment Laboratory Tests Test 08/12/16 08/12/16 08/13/16 08/13/16 05:24 12:50 05:35 14:41 Sodium Level 145 MEQ/L 145 MEQ/L 143 MEQ/L 143 MEQ/L Potassium Level 3.8 MEQ/L 3.4 MEQ/L 3.7 MEQ/L 3.7 MEQ/L Chloride Level 109 MEQ/L 107 MEQ/L 110 MEQ/L 111 MEQ/L Carbon Dioxide Level 25.1 MEQ/L 24.1 MEQ/L 23.9 MEQ/L 21.1 MEQ/L Anion Gap 11 MEQ/L 14 MEQ/L 9 MEQ/L 11 MEQ/L Blood Urea Nitrogen 13 MG/DL 15 MG/DL 16 MG/DL 16 MG/DL Creatinine 2.53 MG/DL 2.82 MG/DL 3.48 MG/DL 3.70 MG/DL Estimat Glomerular Filtration 20 ML/MIN 18 ML/MIN 14 ML/MIN 13 ML/MIN Rate Random Glucose 99 MG/DL 87 MG/DL 112 MG/DL 91 MG/DL Calcium Level 8.2 MG/DL 8.2 MG/DL 7.5 MG/DL 8.2 MG/DL Magnesium Level 2.1 MG/DL Microbiology Date/Time Procedure Status Source Growth 08/11/16 16:40 Gram Stain - Final Complete Wound Back 08/11/16 16:40 Wound Culture - Final Complete Staphylococcus Aureus 08/11/16 16:40 Acid Fast Stain - Final Resulted Wound Back NO ACID FAST BACILLI SEEN 08/11/16 16:40 Mycobacterial Culture Resulted Wound Back Pending 08/11/16 16:40 Fungal Smear - Final Resulted Wound Back NO FUNGAL ELEMENTS SEEN. 08/11/16 16:40 Fungal Culture Resulted Wound Back Pending 08/11/16 16:40 Gram Stain - Final Complete Wound Back 08/11/16 16:40 Wound Culture - Final Complete Staphylococcus Aureus 08/11/16 16:40 Acid Fast Stain - Final Resulted Wound Back NO ACID FAST BACILLI SEEN 08/11/16 16:40 Mycobacterial Culture Resulted Wound Back Pending 08/11/16 16:40 Fungal Smear - Final Resulted Wound Back NO FUNGAL ELEMENTS SEEN. 08/11/16 16:40 Fungal Culture Resulted Wound Back Pending Imaging Last Impressions Renal Ultrasound 08/13/16 0000 Signed Impressions: Service Date/Time: Saturday, August 13, 2016 08:03 - CONCLUSION: Normal ultrasound of the urinary system. Thuan Lira MD Chest X-Ray 08/08/16 1751 Signed Impressions: Service Date/Time: Monday, August 08, 2016 18:18 - CONCLUSION: No acute disease. Eriberto Renae MD Lumbar Spine MRI 08/08/16 0000 Signed Impressions: Service Date/Time: Monday, August 08, 2016 20:26 - CONCLUSION: Large postoperative complex fluid collection following right-sided laminectomy and fusion from L3-L5 which is compatible with the clinical suspicion of a large postoperative abscess. Small epidural component is seen posterior to L4 which is causing moderate compression of the thecal sac. Developing bone marrow edema in L3, L4 and L5 which may be reactive or indicate developing osteomyelitis. Eriberto Renae MD Physical Exam CONSTITUTIONAL/GENERAL: This is a morbidly obese patient, in no apparent distress. TUBES/LINES/DRAINS: SKIN: No jaundice, rashes, or lesions. Ecchymoses on upper extremities. No wounds seen anteriorly. Skin temperature appropriate. Not diaphoretic. HEAD: Atraumatic. Normocephalic. EYES: Pupils equal and round and reactive. Extraocular motions intact. No scleral icterus. No injection or drainage. Fundi not examined. CARDIOVASCULAR: Regular rate and rhythm without murmurs, gallops, or rubs. No JVD. Peripheral pulses symmetric. RESPIRATORY/CHEST: Symmetric, unlabored respirations. Clear to auscultation. Breath sounds equal bilaterally. No wheezes, rales, or rhonchi. GASTROINTESTINAL: Abdomen soft, non-tender, nondistended. No hepato-splenomegaly , or palpable masses. No guarding. Bowel sounds present. GENITOURINARY: Without palpable bladder distension. MUSCULOSKELETAL: Extremities without clubbing, cyanosis, or edema. No joint tenderness or effusion noted. BACK: L spine wound with retention stutures in place; looks OK, no purulence NEUROLOGICAL: Awake and alert. Motor and sensory grossly within normal limits. Follows commands.Normal speech. Moves all extremities. Assessment & Plan Remarks Infected back wound, MSSA, Citrobacter, E.coli MSSA bacterermia, resolved - 2 D echo suboptimal , but negative ARF - seen by Dr Vidal - cont t levaquine - cont cefazoline - anticipate long course 8+ wks of IV abx - fu urine eos - Rosie De Leon MD Aug 13, 2016 21:39
[2016-08-14] VITALS (10 sets, daily range): BP systolic 122–155; BP diastolic 62–77; PULSE 65–88; RESP 17–18; TEMP 96.5–98.6; O2SAT 95–98
[2016-08-14 01:13] LABS: BLOOD, URINE NEG (NEG); COMMENT (UR) CULT NOT INDICATED; CULTURE IF INDICATED CULT NOT INDICATED; GLUCOSE,URINE NEG (NEG); KETONE, URINE NEG (NEG); MUCUS URINE FEW /lpf (OCC); NITRITE,URINE NEG (NEG); PH, URINE 5.5 (5.0-8.5); SQUAMOUS EPITHELIAL CELL URINE 5 /hpf (0-5); URINE COLOR LIGHT-YELLOW (YELLW/STRAW)
[2016-08-14] MEDS: SODIUM CHLOR 0.9% 1000 ML INJ 1,000 ML IV SCH ×3 (03:33→17:36)
[2016-08-14] MEDS: NYSTATIN 100,000 U/GM OINT 15 GM TUBE TOPICAL SCH ×3 (06:00→21:36)
[2016-08-14] MEDS: HEPARIN SODIUM - SQ 10,000 UNITS/ML VIAL SQ SCH ×3 (06:07→21:36)
[2016-08-14 06:11] LABS: BICARBONATE 21.5 MEQ/L (21.0-32.0); POTASSIUM 3.7 MEQ/L (3.5-5.1)
--- NOTE | 2016-08-14 08:41 | HHI.NSPN ---
History Chief Complaint: Incisional soreness s/p incision and drainage of lumbar wound Interval History 08/12/16: Pt with incisional soreness controlled. She feels the strength is a little better today. Pain in right leg improved now more positional. No fever or chills. 08/13/16: Pt states incisional soreness improved today. Less burning than yesterday. She states numbness in right leg stable but pain has resolved. Weakness in right leg unchanged. 08/14/16: Pt states incisional soreness improving daily. No radiculopathy in LEs. She has paresthesias in the right leg. Weakness with right EHL and dorsiflexion with slight improvement. Review of Systems General: Negative for: fever, chills, insomnia Respiratory: Negative for: shortness of breath, cough, sputum Cardiovascular: Negative for: chest pain Gastrointestinal: Negative for: nausea, vomitting, diarrhea, constipation Exam Results Vital Signs Date Time Temp Pulse Resp B/P Pulse Ox O2 Delivery O2 Flow Rate FiO2 08/14/16 08:00 97.8 72 17 123/69 96 08/13/16 18:24 21 08/13/16 08:20 Room Air 08/12/16 08:40 3.00 Intake and Output 08/13/16 08/13/16 08/14/16 08:00 16:00 00:00 Intake Total 3061 ml 1041 ml 1052 ml Output Total 1000 ml 1550 ml 390 ml Balance 2061 ml -509 ml 662 ml Physical Examination Resp: CTA bilaterally Heart: NSR no murmurs Abd: Soft positive bs Skin: Incision with retention sutures in place. Incision draining less. JUDITH drain in place. Muscle: 0/5 EHL and 1/5 dorsiflexion strength. 2-3/5 gastrocsoleus. 4/5 right knee extension. 3-4/5 right iliopsoas. 5/5 left lower extremity. Neuro: Pt more awake this morning. Follows commands well. Speech appropriate. Lab, Micro, Other Results Laboratory Tests Test 08/13/16 08/14/16 08/14/16 14:41 00:50 04:19 Sodium Level 143 MEQ/L 146 MEQ/L Potassium Level 3.7 MEQ/L 3.7 MEQ/L Chloride Level 111 MEQ/L 113 MEQ/L Carbon Dioxide Level 21.1 MEQ/L 21.5 MEQ/L Anion Gap 11 MEQ/L 12 MEQ/L Blood Urea Nitrogen 16 MG/DL 15 MG/DL Creatinine 3.70 MG/DL 3.66 MG/DL Estimat Glomerular Filtration 13 ML/MIN 13 ML/MIN Rate Random Glucose 91 MG/DL 107 MG/DL Calcium Level 8.2 MG/DL 7.8 MG/DL Complement C3 164 MG/DL Urine Color LIGHT-YELLOW Urine Turbidity HAZY Urine pH 5.5 Urine Specific [place] 1.004 Urine Protein 30 mg/dL Urine Glucose (UA) NEG mg/dL Urine Ketones NEG mg/dL Urine Occult Blood NEG Urine Nitrite NEG Urine Bilirubin NEG Urine Urobilinogen LESS THAN 2.0 MG/DL Urine Leukocyte Esterase NEG Urine RBC 1 /hpf Urine WBC 1 /hpf Urine Squamous Epithelial 5 /hpf Cells Urine Mucus FEW /lpf Microscopic Urinalysis Comment CULT NOT INDICATED Urine Osmolality 140 MOSM/KG Urine Random Sodium 37 MEQ/L Phosphorus Level 3.7 MG/DL Complement C4 28 MG/DL 08/13/16 08/13/16 08/14/16 15:00 23:00 07:00 Intake Total 1041 ml 1052 ml 1309 ml Output Total 1550 ml 390 ml 620 ml Balance -509 ml 662 ml 689 ml Intake Oral 120 ml 240 ml 240 ml IV Total 921 ml 812 ml 1069 ml Output Urine Total 1550 ml 300 ml 600 ml Drainage Total 90 ml 20 ml # Bowel Movements 2 Medical Decision Making Impression and Plan A: 51 y/o FM s/p incision and drainage of lumbar wound Hx lumbar fusion with instrumentation Decreased kidney function P: Continue with antibiotics Continue with frequent bandage changes. Continue with medical management Ryan Soto Aug 14, 2016 08:41
[2016-08-14] MEDS: SODIUM CHLORIDE 0.9% FLUSH 5 ML FLUSH IVF SCH ×2 (09:00→21:00)
[2016-08-14] MEDS: ceFAZolin 1,000 MG/NS 100 ML IV SCH ×4 (09:07→21:36)
[2016-08-14] MEDS: PANTOPRAZOLE SOD 40 MG DELAYED RELEASE TAB PO SCH (09:08)
[2016-08-14] MEDS: DULoxetine HCl DR 30 MG CAP PO SCH (09:08)
[2016-08-14] MEDS: DOCUSATE SODIUM 100 MG CAP PO SCH ×2 (09:08→21:35)
[2016-08-14] MEDS: ACETAMINOPHEN/HYDROcodone 325 MG/10 MG TAB PO PRN ×3 (09:08→17:36)
[2016-08-14] MEDS: GABAPENTIN 100 MG CAP PO SCH (09:08)
--- NOTE | 2016-08-14 14:52 | HHI.FPPN ---
Subjective Remarks Bruce Laura feels improved daily. She is elated about being able to go to [facility] once she is cleared for D/C. We discussed her renal fxn. She is aware that with her sepsis she may have taken "a hit" to her kidneys and vancomycin is known to cause renal problems. She had staph aureus and there was an initial concern for MRSA so she was on vancomycin for that reason. She is not oliguric fortunately so hopefully her renal fxn will continue to improve. She is having less pain in her back and is able to sit up and walk with assistance at this point. Objective Vitals Vital Signs Date Time Temp Pulse Resp B/P Pulse Ox O2 Delivery O2 Flow Rate FiO2 08/14/16 14:40 65 08/14/16 12:00 97.7 75 18 155/77 97 08/14/16 08:00 97.8 72 17 123/69 96 08/14/16 04:00 97.7 76 18 122/76 95 08/14/16 01:59 18 08/14/16 00:00 96.8 80 17 125/71 98 08/13/16 20:00 97.9 85 17 133/79 96 08/13/16 18:24 94 21 08/13/16 16:00 97.6 78 18 123/78 94 I/O 08/13/16 08/13/16 08/13/16 08/14/16 08/14/16 08/14/16 07:00 15:00 23:00 07:00 15:00 23:00 Intake Total 3061 ml 1041 ml 1052 ml 1309 ml 240 ml Output Total 1029 ml 1550 ml 390 ml 620 ml 900 ml Balance 2032 ml -509 ml 662 ml 689 ml -660 ml Intake Oral 720 ml 120 ml 240 ml 240 ml 240 ml IV Total 2341 ml 921 ml 812 ml 1069 ml Output Urine Total 1000 ml 1550 ml 300 ml 600 ml 900 ml Drainage Total 29 ml 90 ml 20 ml # Bowel Movements 0 2 1 Result Diagram: 08/13/16 0535 08/14/16 0419 Objective Remarks GEN: Obese female sitting up in no acute distress. SKIN: low output from drain at incision site CARDIOVASCULAR: Distant heart sounds but with regular rate and rhythm without obvious murmurs, gallops, rubs. RESPIRATORY: Clear to auscultation anteriorly. Breath sounds equal bilaterally. No wheezes, rales, or rhonchi. EXT: No edema. No calf tenderness. NEURO/PSYCH: Awake, alert. Appropriate insight and judgment. Normal speech. Urinary Catheter: No Vascular Central Line Catheter: No A/P Assessment and Plan 51-year-old female with a PMH significant for sleep apnea, GERD, HTN. Admitted for postoperative epidural abscess Discharge Planning 2-4days pending eval from nephrology and placement at discharge. May be able to go to [facility] with her insurance. CM looking more into this. PT recommending Rehab Problem List: (1) Epidural abscess Status: Acute Plan: Postop laminectomy on 07/25/16. Patient was initially doing well but then developed uncontrolled pain, fevers, serosanguineous drainage from incision site on the day of this admission. Met sepsis criteria on admission with fever, elevated pulse, leukocytosis. 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 No wall motion abnormalities. Pulmonary artery pressure mildly increased. Neurosurgery consult: Appreciate recommendations * Neuro checks * Patient's neurological exam remained stable without evidence of radiculopathy or cauda equina syndrome * I/D of abscess with Dr. Hanley on 08/12/16 Images: * Lumbar spine MRI: Large postoperative complex fluid collection following right -sided laminectomy and fusion from L3/L5 which is compatible with the clinical suspicion of a large postoperative abscess. Small epidural component is seen posterior to L4 which is causing moderate compression of the thecal sac. Developing bone marrow edema in L3, L4 and L5 which may be reactive or indicate developing osteomyelitis Medications: * Levaquin (08/11- ) * Cefazolin (08/11- ) * Zosyn () * Vancomycin () * Clindamycin (08/08) * Continue home gabapentin dosing * Continue home duloxetine (2) Sepsis Status: Resolved Plan: See plan above (3) SOLO (acute kidney injury) Status: Acute Plan: Patient with worsening creatinine despite fluids and discontinuation of vanc -Renal US unremarkable. Nephrology consulted: Appreciate recommendations -Continue fluids, see rate below -Monitor I/Os not oliguric -Repeat BMP at 1400 (4) Darrell infection Status: Acute Plan: Patient found to have darrell on under side of breasts and pelvic region -Nystatin ointment to be applied to affected areas Q8H (5) Hypertension Status: Chronic Plan: Hold home lisinopril as patient has been hypotensive restart if needed, hold with renal worsening (6) Nutrition, metabolism, and development symptoms Status: Acute Plan: Diet: Regular Fluids: NS at 125 ml/hr Electrolytes: unremarkable DVT prophylaxis: SCDs, chemical anticoagulation on hold due to possible operative treatment GI prophylaxis: Heparin Chronic conditions: * Sleep apnea: home CPAP Problem Qualifiers (1) Sepsis: Qualified Code: A41.01 - Sepsis due to Methicillin susceptible Staphylococcus aureus (2) Hypertension: Qualified Code: I10 - Essential hypertension Sapphire Cuadra MD Aug 14, 2016 14:52
--- NOTE | 2016-08-14 19:35 | HHI.NPPN ---
Subjective Renal Failure: Acute History of Present Illness 51-year-old female with past medical history of hypertension, gastroesophageal reflux disease, depression, history of sleep apnea, morbid obesity, was admitted August 08 for discharge from the lumbar incision. The patient has recent L3-L4 and L4-L5 laminectomy and fusion surgery which was done last month and she has infection on the wound. Two blood cultures were positive for staph aureus and the wound culture grew out staph aureus and other bacteria also. I was called for elevated BUN and Creatinine. Additional Remarks Patient is alert, back pain is better, no SOB, eating well. Review of Systems General Constitutional: Fatigue Cardiovascular Cardiac: POWELL Objective Data Data 08/13/16 08/14/16 19:00 07:00 Intake Total 1041 ml 2361 ml Output Total 1550 ml 1010 ml Balance -509 ml 1351 ml Intake Oral 120 ml 480 ml IV Total 921 ml 1881 ml Output Urine Total 1550 ml 900 ml Drainage Total 110 ml # Bowel Movements 2 Vital Signs Date Time Temp Pulse Resp B/P Pulse Ox O2 Delivery O2 Flow Rate FiO2 08/14/16 16:00 96.5 77 17 132/74 98 08/14/16 14:40 65 08/14/16 12:00 97.7 75 18 155/77 97 08/14/16 08:00 97.8 72 17 123/69 96 08/14/16 04:00 97.7 76 18 122/76 95 08/14/16 01:59 18 08/14/16 00:00 96.8 80 17 125/71 98 08/13/16 20:00 97.9 85 17 133/79 96 -: 08/13/16 0535 08/14/16 0419 Physical Exam General Appearance: Well Nourished, No Acute Distress, Comfortable Eyes Eye Exam: Pupils Equal Throat Throat Exam: Oral Mucosa [place] & Moist Pulmonary Resp Exam: Breath Sounds Equal, Rhonchi, Decreased Bases, Diminished Breath Sounds Cardiology CV Exam: Regular, Normal Sinus Rhythm Gastrointestinal/Abdomen GI Exam: Soft, Non-Tender, Bowel Sounds Present, Distended Extremeties Extremities Exam: Moderate Edema, Pitting Edema Neurologic Neuro Exam: Alert, Awake, Oriented Psychiatric Psych Exam: Appropriate Responses Assessment/Plan Assessment Summary: SOLO/Acute Renal Failure, Hypertension Problem List: (1) Bacteremia (2) Lumbar degenerative disc disease (3) Hypertension (4) Lumbar disc prolapse with compression radiculopathy (5) SOLO (acute kidney injury) Plan Patient has been non oliguric, BP is stable, Complements normal, no urine eosinophils. Most likely has Vanco. related toxicity. Creatinine is almost same. Possibly will see some improvement in next few days. Continue antibiotics. Avoid Nephrotoxins. Problem Qualifiers (1) Hypertension: Qualified Code: I10 - Essential hypertension Rodolfo Vidal MD Aug 14, 2016 19:35
[2016-08-14] MEDS: GABAPENTIN 300 MG CAP PO SCH (21:35)
[2016-08-15] VITALS (7 sets, daily range): BP systolic 118–151; BP diastolic 60–89; PULSE 64–76; RESP 17–18; TEMP 96.5–98.4; O2SAT 92–99
[2016-08-15] MEDS: SODIUM CHLOR 0.9% 1000 ML INJ 1,000 ML IV SCH (04:09)
[2016-08-15] MEDS: HEPARIN SODIUM - SQ 10,000 UNITS/ML VIAL SQ SCH ×3 (05:46→21:52)
[2016-08-15] MEDS: NYSTATIN 100,000 U/GM OINT 15 GM TUBE TOPICAL SCH ×2 (06:00→21:54)
[2016-08-15 06:04] LABS: BICARBONATE 19.8 MEQ/L (21.0-32.0)
[2016-08-15 06:05] LABS: POTASSIUM 4.3 MEQ/L (3.5-5.1)
[2016-08-15] MEDS: SODIUM CHLORIDE 0.9% FLUSH 5 ML FLUSH IVF SCH ×2 (09:00→21:53)
[2016-08-15] MEDS: GABAPENTIN 100 MG CAP PO SCH (09:25)
[2016-08-15] MEDS: ceFAZolin 1,000 MG/NS 100 ML IV SCH ×4 (09:25→21:52)
[2016-08-15] MEDS: ACETAMINOPHEN/HYDROcodone 325 MG/10 MG TAB PO PRN ×2 (09:26→15:48)
[2016-08-15] MEDS: DOCUSATE SODIUM 100 MG CAP PO SCH ×2 (09:26→21:51)
[2016-08-15] MEDS: DULoxetine HCl DR 30 MG CAP PO SCH (09:27)
[2016-08-15] MEDS: PANTOPRAZOLE SOD 40 MG DELAYED RELEASE TAB PO SCH (09:27)
--- NOTE | 2016-08-15 09:44 | HHI.FPPN ---
Subjective Remarks No acute events overnight. Vital signs unremarkable. This morning patient states that she continues to do well and has no complaints. Endorses improved appetite. She is ready to go whenever she is cleared. (Clair Phan MD R2) Objective Vitals Vital Signs Date Time Temp Pulse Resp B/P Pulse Ox O2 Delivery O2 Flow Rate FiO2 08/15/16 08:00 98.0 68 17 118/60 92 08/15/16 04:00 97.5 73 18 125/79 98 08/14/16 23:56 98.6 74 18 129/62 97 08/14/16 21:30 Room Air 08/14/16 21:30 75 08/14/16 20:00 97.4 88 17 125/66 97 08/14/16 19:53 95 21 08/14/16 16:00 96.5 77 17 132/74 98 08/14/16 14:40 65 08/14/16 12:00 97.7 75 18 155/77 97 I/O 08/14/16 08/14/16 08/14/16 08/15/16 08/15/16 08/15/16 07:00 15:00 23:00 07:00 15:00 23:00 Intake Total 1309 ml 240 ml 2068 ml 1237 ml Output Total 620 ml 900 ml 1550 ml 730 ml Balance 689 ml -660 ml 518 ml 507 ml Intake Oral 240 ml 240 ml 240 ml 240 ml IV Total 1069 ml 1828 ml 997 ml Output Urine Total 600 ml 900 ml 1500 ml 700 ml Drainage Total 20 ml 50 ml 30 ml # Voids 1 # Bowel Movements 1 1 (Clair Phan MD R2) Result Diagram: 08/13/16 0535 08/15/16 0451 Objective Remarks GEN: Obese female sitting up in no acute distress. CARDIOVASCULAR: Distant heart sounds but with regular rate and rhythm without obvious murmurs, gallops, rubs. RESPIRATORY: Clear to auscultation anteriorly. Breath sounds equal bilaterally. No wheezes, rales, or rhonchi. EXT:2+ pitting edema bilaterally. No calf tenderness. NEURO/PSYCH: Awake, alert. Appropriate insight and judgment. Normal speech. ( Clair Phan MD R2) A/P Assessment and Plan 51-year-old female with a PMH significant for sleep apnea, GERD, HTN. Admitted for postoperative epidural abscess Discharge Planning 2-4days pending improvement in renal function. Patient approved for rehabilitation at discharge. PT [facility] Attending Attestation Patient seen and examined. Case reviewed and discussed with the resident team. Agree with plan of care as discussed with me and documented in the resident note. (Sapphire Cuadra MD) Problem List: (1) Epidural abscess Status: Acute Plan: Postop laminectomy on 07/25/16. Patient was initially doing well but then developed uncontrolled pain, fevers, serosanguineous drainage from incision site on the day of this admission. Met sepsis criteria on admission with fever, elevated pulse, leukocytosis. 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 No wall motion abnormalities. Pulmonary artery pressure mildly increased. Neurosurgery consult: Appreciate recommendations * Neuro checks * Patient's neurological exam remained stable without evidence of radiculopathy or cauda equina syndrome * I/D of abscess with Dr. Hanley on 08/12/16 * Lumbar drain removed Images: * Lumbar spine MRI: Large postoperative complex fluid collection following right -sided laminectomy and fusion from L3/L5 which is compatible with the clinical suspicion of a large postoperative abscess. Small epidural component is seen posterior to L4 which is causing moderate compression of the thecal sac. Developing bone marrow edema in L3, L4 and L5 which may be reactive or indicate developing osteomyelitis Medications: * Levaquin (08/11- ) * Cefazolin (08/11- ) * Zosyn () * Vancomycin () * Clindamycin (08/08) * Continue home gabapentin dosing * Continue home duloxetine (2) Sepsis Status: Resolved Plan: See plan above (3) SOLO (acute kidney injury) Status: Acute Plan: Patient with worsening creatinine despite fluids and discontinuation of vanc. Likely related to vancomycin toxicity. -Renal US unremarkable. Nephrology consulted: Appreciate recommendations -Agree with discontinuing fluids due to edema -Monitor I/Os -Complements normal, no urine eosinophils (4) Darrell infection Status: Acute Plan: Patient found to have darrell on under side of breasts and pelvic region -Nystatin ointment to be applied to affected areas Q8H (5) Hypertension Status: Chronic Plan: Hold home lisinopril as patient has been hypotensive -Continue to hold due to worsening renal function (6) Nutrition, metabolism, and development symptoms Status: Acute Plan: Diet: Regular Fluids: Discontinued due to edema Electrolytes: unremarkable DVT prophylaxis: Heparin GI prophylaxis: Protonix Chronic conditions: * Sleep apnea: home CPAP (Clair Phan MD R2) Problem Qualifiers (1) Sepsis: Qualified Code: A41.01 - Sepsis due to Methicillin susceptible Staphylococcus aureus (2) Hypertension: Qualified Code: I10 - Essential hypertension Clair Phan MD R2 Aug 15, 2016 09:43 Sapphire Cuadra MD Aug 20, 2016 14:31
--- NOTE | 2016-08-15 10:00 | HHI.NSPN ---
History Chief Complaint: Incisional soreness s/p incision and drainage of lumbar wound Interval History 08/12/16: Pt with incisional soreness controlled. She feels the strength is a little better today. Pain in right leg improved now more positional. No fever or chills. 08/13/16: Pt states incisional soreness improved today. Less burning than yesterday. She states numbness in right leg stable but pain has resolved. Weakness in right leg unchanged. 08/14/16: Pt states incisional soreness improving daily. No radiculopathy in LEs. She has paresthesias in the right leg. Weakness with right EHL and dorsiflexion with slight improvement. 08/15/16: Pt states incisional pain improves every day. No radiculopathy in LEs. Numbness in right leg stable. Weakness in Right EHL and Dorsiflexion without change. Review of Systems General: Negative for: fever, chills, insomnia Respiratory: Negative for: shortness of breath, cough, sputum Cardiovascular: Negative for: chest pain Gastrointestinal: Negative for: nausea, vomitting, diarrhea, constipation Exam Results Vital Signs Date Time Temp Pulse Resp B/P Pulse Ox O2 Delivery O2 Flow Rate FiO2 08/15/16 08:00 98.0 68 17 118/60 92 08/14/16 21:30 Room Air 08/14/16 19:53 21 08/12/16 08:40 3.00 Intake and Output 08/14/16 08/14/16 08/15/16 08:00 16:00 00:00 Intake Total 1309 ml 240 ml 2068 ml Output Total 620 ml 900 ml 1550 ml Balance 689 ml -660 ml 518 ml Physical Examination Resp: CTA bilaterally Heart: NSR no murmurs Abd: Soft positive bs Skin: Incision with retention sutures in place. Incision draining less. JUDITH drain in place. Muscle: 0/5 EHL and 1/5 dorsiflexion strength. 2-3/5 gastrocsoleus. 4/5 right knee extension. 3-4/5 right iliopsoas. 5/5 left lower extremity. Neuro: Pt more awake this morning. Follows commands well. Speech appropriate. Lab, Micro, Other Results Laboratory Tests Test 08/15/16 04:51 Sodium Level 146 MEQ/L Potassium Level 4.3 MEQ/L Chloride Level 114 MEQ/L Carbon Dioxide Level 19.8 MEQ/L Anion Gap 12 MEQ/L Blood Urea Nitrogen 16 MG/DL Creatinine 3.75 MG/DL Estimat Glomerular Filtration 13 ML/MIN Rate Random Glucose 104 MG/DL Calcium Level 7.9 MG/DL 08/14/16 08/14/16 08/15/16 15:00 23:00 07:00 Intake Total 240 ml 2068 ml 1237 ml Output Total 900 ml 1550 ml 730 ml Balance -660 ml 518 ml 507 ml Intake Oral 240 ml 240 ml 240 ml IV Total 1828 ml 997 ml Output Urine Total 900 ml 1500 ml 700 ml Drainage Total 50 ml 30 ml # Voids 1 # Bowel Movements 1 1 Medical Decision Making Impression and Plan A: 51 y/o FM s/p incision and drainage of lumbar wound Hx lumbar fusion with instrumentation Decreased kidney function P: Continue with antibiotics Continue with frequent bandage changes. Lumbar drain removed and steri strip placed at exit site. Continue with medical management. Neurosurgically stable for rehab when medically stable. Kidney function being monitored currently. Ryan Soto Aug 15, 2016 10:00
--- NOTE | 2016-08-15 12:24 | HHI.NPPN ---
Subjective Renal Failure: Acute History of Present Illness 51-year-old female with past medical history of hypertension, gastroesophageal reflux disease, depression, history of sleep apnea, morbid obesity, was admitted August 08 for discharge from the lumbar incision. The patient has recent L3-L4 and L4-L5 laminectomy and fusion surgery which was done last month and she has infection on the wound. Two blood cultures were positive for staph aureus and the wound culture grew out staph aureus and other bacteria also. I was called for elevated BUN and Creatinine. Additional Remarks Patient is alert, sitting on chair, not in distress. Review of Systems General Constitutional: Fatigue Cardiovascular Cardiac: POWELL Objective Data Data 08/14/16 08/15/16 19:00 07:00 Intake Total 240 ml 3305 ml Output Total 1300 ml 1880 ml Balance -1060 ml 1425 ml Intake Oral 240 ml 480 ml IV Total 2825 ml Output Urine Total 1300 ml 1800 ml Drainage Total 80 ml # Voids 1 # Bowel Movements 1 1 Vital Signs Date Time Temp Pulse Resp B/P Pulse Ox O2 Delivery O2 Flow Rate FiO2 08/15/16 12:00 97.2 64 17 136/76 94 08/15/16 08:00 98.0 68 17 118/60 92 08/15/16 04:00 97.5 73 18 125/79 98 08/14/16 23:56 98.6 74 18 129/62 97 08/14/16 21:30 Room Air 08/14/16 21:30 75 08/14/16 20:00 97.4 88 17 125/66 97 08/14/16 19:53 95 21 08/14/16 16:00 96.5 77 17 132/74 98 08/14/16 14:40 65 -: 08/13/16 0535 08/15/16 0451 Physical Exam General Appearance: Well Nourished, No Acute Distress, Comfortable Eyes Eye Exam: Pupils Equal Throat Throat Exam: Oral Mucosa [place] [facility] & Moist Pulmonary Resp Exam: Breath Sounds Equal, Rhonchi, Decreased Bases, Diminished Breath Sounds Cardiology CV Exam: Regular, Normal Sinus Rhythm Gastrointestinal/Abdomen GI Exam: Soft, Non-Tender, Bowel Sounds Present, Distended Extremeties Extremities Exam: Moderate Edema, Pitting Edema Neurologic Neuro Exam: Alert, Awake, Oriented Psychiatric Psych Exam: Appropriate Responses Assessment/Plan Assessment Summary: SOLO/Acute Renal Failure, Hypertension Problem List: (1) Bacteremia (2) Lumbar degenerative disc disease (3) Hypertension (4) Lumbar disc prolapse with compression radiculopathy (5) SOLO (acute kidney injury) Plan Patient has been non oliguric, BP is stable, Complements normal, no urine eosinophils. Most likely has Vanco. related toxicity. Creatinine is almost same. Has more edema, agree with stopping IVF. Follow urine out put and BMP. Problem Qualifiers (1) Hypertension: Qualified Code: I10 - Essential hypertension Rodolfo Vidal MD Aug 15, 2016 12:24
--- NOTE | 2016-08-15 18:29 | HHI.IDPN ---
Subjective Subjective Remarks Creatinine slightly up No fever pain better walks w walker Antibiotics cefazoline levaquine Allergies: Coded Allergies: Prednisone (Verified Adverse Reaction, Intermediate, Restlessness, 08/08/16) Objective . Vital Signs Date Time Temp Pulse Resp B/P Pulse Ox O2 Delivery O2 Flow Rate FiO2 08/15/16 18:05 99 21 08/15/16 16:00 96.5 76 17 151/89 99 08/15/16 12:00 97.2 64 17 136/76 94 08/15/16 08:00 98.0 68 17 118/60 92 08/15/16 04:00 97.5 73 18 125/79 98 08/14/16 23:56 98.6 74 18 129/62 97 08/14/16 21:30 Room Air 08/14/16 21:30 75 08/14/16 20:00 97.4 88 17 125/66 97 08/14/16 19:53 95 21 08/14/16 08/14/16 08/15/16 15:00 23:00 07:00 Intake Total 240 ml 2068 ml 1237 ml Output Total 900 ml 1550 ml 730 ml Balance -660 ml 518 ml 507 ml Intake Oral 240 ml 240 ml 240 ml IV Total 1828 ml 997 ml Output Urine Total 900 ml 1500 ml 700 ml Drainage Total 50 ml 30 ml # Voids 1 # Bowel Movements 1 1 . Laboratory Tests Test 08/14/16 08/15/16 04:19 04:51 Sodium Level 146 MEQ/L 146 MEQ/L Potassium Level 3.7 MEQ/L 4.3 MEQ/L Chloride Level 113 MEQ/L 114 MEQ/L Carbon Dioxide Level 21.5 MEQ/L 19.8 MEQ/L Anion Gap 12 MEQ/L 12 MEQ/L Blood Urea Nitrogen 15 MG/DL 16 MG/DL Creatinine 3.66 MG/DL 3.75 MG/DL Estimat Glomerular Filtration 13 ML/MIN 13 ML/MIN Rate Random Glucose 107 MG/DL 104 MG/DL Calcium Level 7.8 MG/DL 7.9 MG/DL Phosphorus Level 3.7 MG/DL Imaging Last Impressions Renal Ultrasound 08/13/16 0000 Signed Impressions: Service Date/Time: Saturday, August 13, 2016 08:03 - CONCLUSION: Normal ultrasound of the urinary system. Thuan Lira MD Chest X-Ray 08/08/16 1751 Signed Impressions: Service Date/Time: Monday, August 08, 2016 18:18 - CONCLUSION: No acute disease. Eriberto Renae MD Lumbar Spine MRI 08/08/16 0000 Signed Impressions: Service Date/Time: Monday, August 08, 2016 20:26 - CONCLUSION: Large postoperative complex fluid collection following right-sided laminectomy and fusion from L3-L5 which is compatible with the clinical suspicion of a large postoperative abscess. Small epidural component is seen posterior to L4 which is causing moderate compression of the thecal sac. Developing bone marrow edema in L3, L4 and L5 which may be reactive or indicate developing osteomyelitis. Eriberto Renae MD Physical Exam CONSTITUTIONAL/GENERAL: This is a morbidly obese patient, in no apparent distress. TUBES/LINES/DRAINS: SKIN: No jaundice, rashes, or lesions. Skin temperature appropriate. Not diaphoretic. HEAD: Atraumatic. Normocephalic. EYES: Pupils equal and round and reactive. Extraocular motions intact. No scleral icterus. No injection or drainage. Fundi not examined. CARDIOVASCULAR: Regular rate and rhythm without murmurs, gallops, or rubs. No JVD. Peripheral pulses symmetric. RESPIRATORY/CHEST: Symmetric, unlabored respirations. Clear to auscultation. Breath sounds equal bilaterally. No wheezes, rales, or rhonchi. GASTROINTESTINAL: Abdomen soft, non-tender, nondistended. No hepato-splenomegaly , or palpable masses. No guarding. Bowel sounds present. MUSCULOSKELETAL: Extremities without clubbing, cyanosis, or edema. No joint tenderness or effusion noted. NEUROLOGICAL: Awake and alert. Motor and sensory grossly within normal limits. Follows commands.Normal speech. Moves all extremities. Assessment & Plan Remarks Infected back wound, MSSA, Citrobacter, E.coli MSSA bacterermia, resolved - 2 D echo suboptimal , but negative ARF - seen by Dr Vidal - no urine eos - cont t levaquine - cont cefazoline - anticipate long course 8+ wks of IV abx - abx need to be adjusted when renal fnx start to improve - Rosie De Leon MD Aug 15, 2016 18:28
[2016-08-15] MEDS: GABAPENTIN 300 MG CAP PO SCH (21:51)
[2016-08-15] MEDS: LEVOFLOXACIN 750 MG PREMIX INJ 150 ML IV SCH (21:52)
[2016-08-16] VITALS (7 sets, daily range): BP systolic 117–147; BP diastolic 55–83; PULSE 64–72; RESP 16–20; TEMP 96–97.6; O2SAT 96–98
[2016-08-16] MEDS: ONDANSETRON HCL 4 MG/2 ML VIAL IV PRN (00:44)
[2016-08-16 05:30] LABS: BICARBONATE 17.3 MEQ/L (21.0-32.0)
[2016-08-16] MEDS: HEPARIN SODIUM - SQ 10,000 UNITS/ML VIAL SQ SCH ×3 (05:32→20:28)
[2016-08-16] MEDS: NYSTATIN 100,000 U/GM OINT 15 GM TUBE TOPICAL SCH ×3 (06:00→20:29)
[2016-08-16 06:08] LABS: POTASSIUM 4.5 MEQ/L (3.5-5.1)
--- NOTE | 2016-08-16 08:18 | HHI.FPPN ---
Subjective Remarks Patient seen and examined this morning. Vital signs stable overnight. Patient reports 1 episode of vomiting nonbloody, clear liquids last night after feeling dizzy from getting out of her chair too quickly. She then received Zofran which completely resolved her symptoms and has had no vomiting episodes since. Otherwise she has no complaints and denies any fevers, chills, shortness of breath, chest pain, or diarrhea. (Lee Dover MD R1) Objective Vitals Vital Signs Date Time Temp Pulse Resp B/P Pulse Ox O2 Delivery O2 Flow Rate FiO2 08/16/16 04:00 97.4 69 18 118/59 97 08/16/16 00:00 97.3 72 18 134/81 98 08/15/16 20:55 Room Air 08/15/16 20:55 72 08/15/16 20:00 98.4 74 18 136/76 98 08/15/16 18:05 99 21 08/15/16 16:00 96.5 76 17 151/89 99 08/15/16 12:00 97.2 64 17 136/76 94 I/O 08/15/16 08/15/16 08/15/16 08/16/16 08/16/16 08/16/16 07:00 15:00 23:00 07:00 15:00 23:00 Intake Total 1237 ml 240 ml 320 ml 740 ml Output Total 730 ml 600 ml 500 ml 1700 ml Balance 507 ml -360 ml -180 ml -960 ml Intake Oral 240 ml 240 ml 320 ml 480 ml IV Total 997 ml 0 ml 260 ml Output Urine Total 700 ml 600 ml 500 ml 1700 ml Drainage Total 30 ml # Bowel Movements 0 0 0 (Lee Dover MD R1) Result Diagram: 08/13/16 0535 08/16/16 0429 Objective Remarks GEN: Obese female lying in bed in no acute distress with CPAP in place. CARDIOVASCULAR: Distant heart sounds but with regular rate and rhythm without obvious murmurs, gallops, rubs. RESPIRATORY: Clear to auscultation anteriorly. Breath sounds equal bilaterally. No wheezes, rales, or rhonchi. EXT: 2+ pitting edema to the R aldrich and L ankle. No calf tenderness posteriorly. TTP on R anterior aldrich. NEURO/PSYCH: Awake, alert. Appropriate insight and judgment. Normal speech. ( Lee Dover MD R1) A/P Assessment and Plan 51-year-old female with a PMH significant for sleep apnea, GERD, HTN. Admitted for postoperative epidural abscess Discharge Planning 2-4days pending improvement in renal function. Patient approved for rehabilitation at discharge. PT recommending Rehab dw Dr. Cuadra and Dr. Gutierrez (Lee Dover MD R1) Attending Attestation Patient seen and examined. Case reviewed and discussed with the resident team. Agree with plan of care as discussed with me and documented in the resident note. (Sapphire Cuadra MD) Problem List: (1) Epidural abscess Status: Acute Plan: Postop laminectomy on 07/25/16. Patient was initially doing well but then developed uncontrolled pain, fevers, serosanguineous drainage from incision site on the day of this admission. Met sepsis criteria on admission with fever, elevated pulse, leukocytosis. 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 No wall motion abnormalities. Pulmonary artery pressure mildly increased. Neurosurgery consult: Appreciate recommendations * Neuro checks * Patient's neurological exam remained stable without evidence of radiculopathy or cauda equina syndrome * I/D of abscess with Dr. Hanley on 08/12/16 * Lumbar drain removed 08/15 Images: * Lumbar spine MRI: Large postoperative complex fluid collection following right -sided laminectomy and fusion from L3/L5 which is compatible with the clinical suspicion of a large postoperative abscess. Small epidural component is seen posterior to L4 which is causing moderate compression of the thecal sac. Developing bone marrow edema in L3, L4 and L5 which may be reactive or indicate developing osteomyelitis Medications: * Levaquin (08/11- ) * Cefazolin (08/11- ) * Zosyn () * Vancomycin () * Clindamycin (08/08) * Continue home gabapentin dosing * Continue home duloxetine (2) Sepsis Status: Resolved Plan: See plan above (3) SOLO (acute kidney injury) Status: Acute Plan: Patient with worsening creatinine despite fluids and discontinuation of vanc. Likely related to vancomycin toxicity. -Renal US unremarkable. Nephrology consulted: Appreciate recommendations -Agree with discontinuing fluids due to edema -Monitor I/Os -Complements normal, no urine eosinophils -Most likely Vancomycin related toxicity (4) Darrell infection Status: Acute Plan: Patient found to have darrell on under side of breasts and pelvic region -Nystatin ointment to be applied to affected areas Q8H (5) Hypertension Status: Chronic Plan: Hold home lisinopril as patient has been hypotensive -Continue to hold due to worsening renal function (6) Nutrition, metabolism, and development symptoms Status: Acute Plan: Diet: Regular Fluids: Discontinued due to edema Electrolytes: unremarkable DVT prophylaxis: Heparin GI prophylaxis: Protonix Chronic conditions: * Sleep apnea: home CPAP (Lee Dover MD R1) Problem Qualifiers (1) Sepsis: Qualified Code: A41.01 - Sepsis due to Methicillin susceptible Staphylococcus aureus (2) Hypertension: Qualified Code: I10 - Essential hypertension Lee Dover MD R1 Aug 16, 2016 08:18 Sapphire Cuadra MD Aug 20, 2016 14:32
[2016-08-16] MEDS: DULoxetine HCl DR 30 MG CAP PO SCH (08:35)
[2016-08-16] MEDS: GABAPENTIN 100 MG CAP PO SCH (08:35)
[2016-08-16] MEDS: SODIUM CHLORIDE 0.9% FLUSH 5 ML FLUSH IVF SCH ×2 (08:36→20:28)
[2016-08-16] MEDS: DOCUSATE SODIUM 100 MG CAP PO SCH ×2 (08:36→20:28)
[2016-08-16] MEDS: PANTOPRAZOLE SOD 40 MG DELAYED RELEASE TAB PO SCH (08:36)
[2016-08-16] MEDS: ceFAZolin 1,000 MG/NS 100 ML IV SCH ×4 (08:36→20:28)
[2016-08-16] MEDS: ACETAMINOPHEN/HYDROcodone 325 MG/10 MG TAB PO PRN ×2 (09:56→17:31)
--- NOTE | 2016-08-16 13:26 | HHI.NPPN ---
Subjective Renal Failure: Acute History of Present Illness 51-year-old female with past medical history of hypertension, gastroesophageal reflux disease, depression, history of sleep apnea, morbid obesity, was admitted August 08 for discharge from the lumbar incision. The patient has recent L3-L4 and L4-L5 laminectomy and fusion surgery which was done last month and she has infection on the wound. Two blood cultures were positive for staph aureus and the wound culture grew out staph aureus and other bacteria also. I was called for elevated BUN and Creatinine. Additional Remarks No acute complaints Review of Systems General Constitutional: Fatigue Cardiovascular Cardiac: POWELL Objective Data Data 08/15/16 08/16/16 19:00 07:00 Intake Total 240 ml 1060 ml Output Total 600 ml 2200 ml Balance -360 ml -1140 ml Intake Oral 240 ml 800 ml IV Total 260 ml Output Urine Total 600 ml 2200 ml # Bowel Movements 0 0 Vital Signs Date Time Temp Pulse Resp B/P Pulse Ox O2 Delivery O2 Flow Rate FiO2 08/16/16 12:00 96.6 64 18 147/81 98 08/16/16 10:06 97 21 08/16/16 08:00 96.8 67 16 117/55 98 08/16/16 04:00 97.4 69 18 118/59 97 08/16/16 00:00 97.3 72 18 134/81 98 08/15/16 20:55 Room Air 08/15/16 20:55 72 08/15/16 20:00 98.4 74 18 136/76 98 08/15/16 18:05 99 21 08/15/16 16:00 96.5 76 17 151/89 99 -: 08/13/16 0535 08/16/16 0429 Physical Exam General Appearance: Well Nourished, No Acute Distress, Comfortable Eyes Eye Exam: Pupils Equal Throat Throat Exam: Oral Mucosa [place] & Moist Pulmonary Resp Exam: Breath Sounds Equal, Rhonchi, Decreased Bases, Diminished Breath Sounds Cardiology CV Exam: Regular, Normal Sinus Rhythm Gastrointestinal/Abdomen GI Exam: Soft, Non-Tender, Bowel Sounds Present, Distended Extremeties Extremities Exam: Moderate Edema, Pitting Edema Neurologic Neuro Exam: Alert, Awake, Oriented Psychiatric Psych Exam: Appropriate Responses Assessment/Plan Assessment Summary: SOLO/Acute Renal Failure, Hypertension Problem List: (1) Bacteremia (2) Lumbar degenerative disc disease (3) Hypertension (4) Lumbar disc prolapse with compression radiculopathy (5) SOLO (acute kidney injury) Plan Patient has been non oliguric, with 2.8L UOP/ 24 hours Creatinine stable at 3.7 today. IVFs held yesterday BP is stable, Complements normal, no urine eosinophils. Most likely has Vanco. related toxicity. Follow urine out put and BMP. Problem Qualifiers (1) Hypertension: Qualified Code: I10 - Essential hypertension Florencio Harding MD Aug 16, 2016 13:26
[2016-08-16] MEDS: GABAPENTIN 300 MG CAP PO SCH (20:28)
[2016-08-17] VITALS (7 sets, daily range): BP systolic 119–162; BP diastolic 58–85; PULSE 63–71; RESP 17–21; TEMP 97–99.2; O2SAT 95–99
[2016-08-17] MEDS: NYSTATIN 100,000 U/GM OINT 15 GM TUBE TOPICAL SCH ×3 (06:00→20:53)
[2016-08-17 06:09] LABS: BICARBONATE 20.8 MEQ/L (21.0-32.0); POTASSIUM 3.9 MEQ/L (3.5-5.1)
[2016-08-17] MEDS: HEPARIN SODIUM - SQ 10,000 UNITS/ML VIAL SQ SCH ×3 (06:14→20:53)
[2016-08-17] MEDS: SODIUM CHLORIDE 0.9% FLUSH 5 ML FLUSH IVF SCH ×2 (07:50→20:53)
[2016-08-17] MEDS: PANTOPRAZOLE SOD 40 MG DELAYED RELEASE TAB PO SCH (07:50)
[2016-08-17] MEDS: ceFAZolin 1,000 MG/NS 100 ML IV SCH ×4 (07:50→20:52)
[2016-08-17] MEDS: DOCUSATE SODIUM 100 MG CAP PO SCH ×2 (07:50→20:52)
[2016-08-17] MEDS: GABAPENTIN 100 MG CAP PO SCH (07:50)
[2016-08-17] MEDS: DULoxetine HCl DR 30 MG CAP PO SCH (07:50)
--- NOTE | 2016-08-17 11:33 | HHI.FPPN ---
Subjective Remarks No acute events overnight. Afebrile. Vital signs stable. Patient reports she is doing well. Is ready to go to rehab. (Shirlene Chawla MD R3) Objective Vitals Vital Signs Date Time Temp Pulse Resp B/P Pulse Ox O2 Delivery O2 Flow Rate FiO2 08/17/16 08:25 99 21 08/17/16 08:00 98.3 65 17 137/73 97 08/17/16 00:04 97.8 70 19 119/58 95 08/16/16 21:20 21 08/16/16 20:00 96.0 67 20 124/62 97 08/16/16 16:00 97.6 70 17 138/83 96 08/16/16 12:00 96.6 64 18 147/81 98 I/O 08/16/16 08/16/16 08/16/16 08/17/16 08/17/16 08/17/16 07:00 15:00 23:00 07:00 15:00 23:00 Intake Total 740 ml 240 ml 240 ml 120 ml Output Total 1700 ml 1000 ml 1500 ml Balance -960 ml -760 ml 240 ml -1380 ml Intake Oral 480 ml 240 ml 240 ml 120 ml IV Total 260 ml 0 ml Output Urine Total 1700 ml 1000 ml 1500 ml # Voids 1 # Bowel Movements 0 1 0 0 (Shirlene Chawla MD R3) Result Diagram: 08/13/16 0535 08/17/16 0458 Objective Remarks GEN: NAD CARDIOVASCULAR: Distant heart sounds but with regular rate and rhythm without obvious murmurs, gallops, rubs. RESPIRATORY: Clear to auscultation anteriorly. Breath sounds equal bilaterally. No wheezes, rales, or rhonchi. EXT: 2+ pitting edema to bilat shins. No calf tenderness posteriorly. NEURO/PSYCH: Awake, alert. Appropriate insight and judgment. Normal speech. ( Shirlene Chawla MD R3) A/P Assessment and Plan 51-year-old female with a PMH significant for sleep apnea, GERD, HTN. Admitted for postoperative epidural abscess Discharge Planning Pending improvement in renal function. Patient approved for rehabilitation at discharge. (Shirlene Chawla MD R3) Attending Attestation Patient seen and examined. Case reviewed and discussed with the resident team. Agree with plan of care as discussed with me and documented in the resident note. (Sapphire Cuadra MD) Problem List: (1) Epidural abscess Status: Acute Plan: Postop laminectomy on 07/25/16. Patient was initially doing well but then developed uncontrolled pain, fevers, serosanguineous drainage from incision site on the day of this admission. Met sepsis criteria on admission with fever, elevated pulse, leukocytosis. -Resolved leukocytosis -Blood cultures and repeat wound cultures positive with MSSA -Wound culture positive for Escherichia coli, Citrobacter, Staph Aureus -Repeat blood cultures negative -Will need PICC upon discharge for prison ABX treatment ID consulted: Appreciate recommendations * DC Vancomycin and Cefepime * Start Levaquin and Cefazolin 08/11 * Echo: EF 55-60% with normal systolic function of the ventricles. No wall motion abnormalities. Pulmonary artery pressure mildly increased. Neurosurgery consult: Appreciate recommendations * Neuro checks * Patient's neurological exam remained stable without evidence of radiculopathy or cauda equina syndrome * I/D of abscess with Dr. Hanley on 08/12/16 * Lumbar drain removed 08/15 Images: * Lumbar spine MRI: Large postoperative complex fluid collection following right -sided laminectomy and fusion from L3/L5 which is compatible with the clinical suspicion of a large postoperative abscess. Small epidural component is seen posterior to L4 which is causing moderate compression of the thecal sac. Developing bone marrow edema in L3, L4 and L5 which may be reactive or indicate developing osteomyelitis Medications: * Levaquin (08/11- ) * Cefazolin (08/11- ) * Zosyn () * Vancomycin () * Clindamycin (08/08) * Continue home gabapentin dosing * Continue home duloxetine (2) Sepsis Status: Resolved Plan: See plan above (3) SOLO (acute kidney injury) Status: Acute Plan: Patient with worsening creatinine despite fluids and discontinuation of vanc. Likely related to vancomycin toxicity. -Renal US unremarkable. Nephrology consulted: Appreciate recommendations -Agree with discontinuing fluids due to edema -Monitor I/Os -Complements normal, no urine eosinophils -Trend Cr (4) Darrell infection Status: Acute Plan: Patient found to have darrell on under side of breasts and pelvic region -Nystatin ointment to be applied to affected areas Q8H (5) Hypertension Status: Chronic Plan: Hold home lisinopril as patient has been hypotensive -Continue to hold due to worsening renal function (6) Nutrition, metabolism, and development symptoms Status: Acute Plan: Diet: Regular Fluids: HLIV Electrolytes: replete prn DVT prophylaxis: Heparin GI prophylaxis: Protonix Chronic conditions: * Sleep apnea: home CPAP (Shirlene Chawla MD R3) Problem Qualifiers (1) Sepsis: Qualified Code: A41.01 - Sepsis due to Methicillin susceptible Staphylococcus aureus (2) Hypertension: Qualified Code: I10 - Essential hypertension Shirlene Chawla MD R3 Aug 17, 2016 11:33 Sapphire Cuadra MD Aug 20, 2016 14:32
[2016-08-17] MEDS: ACETAMINOPHEN/HYDROcodone 325 MG/10 MG TAB PO PRN (15:07)
--- NOTE | 2016-08-17 15:26 | HHI.NPPN ---
Subjective Renal Failure: Acute History of Present Illness 51-year-old female with past medical history of hypertension, gastroesophageal reflux disease, depression, history of sleep apnea, morbid obesity, was admitted August 08 for discharge from the lumbar incision. The patient has recent L3-L4 and L4-L5 laminectomy and fusion surgery which was done last month and she has infection on the wound. Two blood cultures were positive for staph aureus and the wound culture grew out staph aureus and other bacteria also. I was called for elevated BUN and Creatinine. Additional Remarks No acute complaints Review of Systems General Constitutional: Fatigue Cardiovascular Cardiac: POWELL Objective Data Data 08/16/16 08/17/16 19:00 07:00 Intake Total 240 ml 360 ml Output Total 1000 ml 1500 ml Balance -760 ml -1140 ml Intake Oral 240 ml 360 ml IV Total 0 ml Output Urine Total 1000 ml 1500 ml # Voids 1 # Bowel Movements 1 0 Vital Signs Date Time Temp Pulse Resp B/P Pulse Ox O2 Delivery O2 Flow Rate FiO2 08/17/16 12:00 97.0 68 18 162/85 97 08/17/16 12:00 97.0 68 18 162/85 97 08/17/16 08:25 99 21 08/17/16 08:00 98.3 65 17 137/73 97 08/17/16 00:04 97.8 70 19 119/58 95 08/16/16 21:20 21 08/16/16 20:00 96.0 67 20 124/62 97 08/16/16 16:00 97.6 70 17 138/83 96 -: 08/13/16 0535 08/17/16 0458 Physical Exam General Appearance: Well Nourished, No Acute Distress, Comfortable Eyes Eye Exam: Pupils Equal Throat Throat Exam: Oral Mucosa [place] & Moist Pulmonary Resp Exam: Breath Sounds Equal, Rhonchi, Decreased Bases, Diminished Breath Sounds Cardiology CV Exam: Regular, Normal Sinus Rhythm Gastrointestinal/Abdomen GI Exam: Soft, Non-Tender, Bowel Sounds Present, Distended Extremeties Extremities Exam: Moderate Edema, Pitting Edema Neurologic Neuro Exam: Alert, Awake, Oriented Psychiatric Psych Exam: Appropriate Responses Assessment/Plan Assessment Summary: SOLO/Acute Renal Failure, Hypertension Problem List: (1) Bacteremia (2) Lumbar degenerative disc disease (3) Hypertension (4) Lumbar disc prolapse with compression radiculopathy (5) SOLO (acute kidney injury) Plan Patient has been non oliguric, with 2.4L UOP/ 24 hours Creatinine stable at 3.7 again today. Off IVFs BP is stable, Complements normal, no urine eosinophils. Most likely has Vanco. related toxicity. Continue to follow urine out put and BMP. Problem Qualifiers (1) Hypertension: Qualified Code: I10 - Essential hypertension Florencio Harding MD Aug 17, 2016 15:26
[2016-08-17] MEDS: LEVOFLOXACIN 750 MG PREMIX INJ 150 ML IV SCH (20:52)
[2016-08-17] MEDS: GABAPENTIN 300 MG CAP PO SCH (20:52)
--- NOTE | 2016-08-17 23:36 | HHI.PR ---
Addendum to Inpatient Note Addendum Reason: Additional Documentation Additional Information OFF SERVICE NOTE Mrs. Laura is a 51-year-old female with a PMH significant for sleep apnea, GERD, HTN admitted due to serosanguineous drainage from lumbar incision from a L3/4 and L4/5 laminectomy and interbody fusion with Dr. Monk on 07/25/16. After her surgery the patient was doing well and was at rehabilitation at [facility] where she was participating in PT and OT. Her pain increased and presented to the ER on 08/08/16 and found to have an epidural abscess with MSSA bacteremia. She was taken to surgery for an uncomplicated I/D of her abscess by Neurosurgery on 08/11/16. Wound culture grew MSSA, Citrobacter, and E. coli. ABX coverage was started on admission with Vancomycin, Zosyn, and Clindamycin. ID was consulted for recommendations and transitioned her to Cefazolin and Levaquin after her Vancomycin trough was elevated with a creatinine of 2.53. Repeat BC were negative. Nephrology was consulted for her SOLO likely due to Vancomycin toxicity who recommended continued monitoring with fluids. Fluids were DC as patient became edematous 2 days later. Currently her creatinine is stable at 3.7. She will need continued ABX at time of her discharge per ID recommendations. CM has been consulted to assist with placement to [facility] upon discharge. Lee Dover MD R1 Aug 17, 2016 23:36
[2016-08-18] MEDS: HEPARIN SODIUM - SQ 10,000 UNITS/ML VIAL SQ SCH ×3 (05:28→22:26)
[2016-08-18] MEDS: NYSTATIN 100,000 U/GM OINT 15 GM TUBE TOPICAL SCH ×3 (05:28→22:26)
[2016-08-18 05:34] LABS: BICARBONATE 23.1 MEQ/L (21.0-32.0); POTASSIUM 3.8 MEQ/L (3.5-5.1)
[2016-08-18 08:00] VITALS: BP 127/60; PULSE 63; RESP 17; TEMP 96.9; O2SAT 97
[2016-08-18] MEDS: SODIUM CHLORIDE 0.9% FLUSH 5 ML FLUSH IVF SCH ×2 (09:00→22:26)
[2016-08-18] MEDS: ceFAZolin 1,000 MG/NS 100 ML IV SCH ×4 (09:39→22:25)
[2016-08-18] MEDS: DOCUSATE SODIUM 100 MG CAP PO SCH ×2 (09:40→22:26)
[2016-08-18] MEDS: DULoxetine HCl DR 30 MG CAP PO SCH (09:40)
[2016-08-18] MEDS: PANTOPRAZOLE SOD 40 MG DELAYED RELEASE TAB PO SCH (09:41)
[2016-08-18] MEDS: ONDANSETRON HCL 4 MG/2 ML VIAL IV PRN ×2 (09:41→22:41)
[2016-08-18] MEDS: GABAPENTIN 100 MG CAP PO SCH (09:41)
--- NOTE | 2016-08-18 09:47 | HHI.FPPN ---
Subjective Remarks Patient seen and examined this morning. No acute events overnight. She reports feeling well this morning without any complaints. Is ready to go to rehab and is curious about going there to monitor her kidney function as well. Denies any chest pain, SOB, abdominal pain, leg pain. (Darryl Wells MD R1) Objective Vitals Vital Signs Date Time Temp Pulse Resp B/P Pulse Ox O2 Delivery O2 Flow Rate FiO2 08/18/16 08:00 96.9 63 17 127/60 97 08/17/16 23:33 99.2 71 20 141/65 98 08/17/16 20:00 97.0 63 21 141/82 99 08/17/16 16:00 97.5 67 18 157/83 96 08/17/16 12:00 97.0 68 18 162/85 97 08/17/16 12:00 97.0 68 18 162/85 97 I/O 08/17/16 08/17/16 08/17/16 08/18/16 08/18/16 08/18/16 06:59 14:59 22:59 06:59 14:59 22:59 Intake Total 120 ml 340 ml 370 ml 240 ml Output Total 1500 ml 600 ml 500 ml 2000 ml Balance -1380 ml -260 ml -130 ml -1760 ml Intake Oral 120 ml 240 ml 120 ml 240 ml IV Total 100 ml 250 ml Output Urine Total 1500 ml 600 ml 500 ml 2000 ml # Bowel Movements 0 1 0 0 (Darryl Wells MD R1) Result Diagram: 08/18/16 0449 Objective Remarks GEN: NAD, lying in bed CARDIOVASCULAR: Distant heart sounds but with regular rate and rhythm without obvious murmurs, gallops, rubs. RESPIRATORY: Clear to auscultation bilaterally. Breath sounds equal bilaterally. No wheezes, rales, or rhonchi. EXT: 2+ pitting edema to bilateral shins. No calf tenderness posteriorly. NEURO/PSYCH: Awake, alert. Appropriate insight and judgment. Normal speech. ( Darryl Wells MD R1) A/P Assessment and Plan 51-year-old female with a PMH significant for sleep apnea, GERD, HTN. Admitted for postoperative epidural abscess Discharge Planning Pending improvement in renal function. Patient approved for rehabilitation at discharge. Will discuss with case management regarding going to [place] for medical management as well (Darryl Wells MD R1) Attending Attestation Patient seen and examined. Case reviewed and discussed with the resident team. Agree with plan of care as discussed with me and documented in the resident note. (Sapphire Cuadra MD) Problem List: (1) Epidural abscess Status: Acute Plan: Postop laminectomy on 07/25/16. Patient was initially doing well but then developed uncontrolled pain, fevers, serosanguineous drainage from incision site on the day of this admission. Met sepsis criteria on admission with fever, elevated pulse, leukocytosis. -Resolved leukocytosis -Blood cultures and repeat wound cultures positive with MSSA -Wound culture positive for Escherichia coli, Citrobacter, Staph Aureus -Repeat blood cultures negative -Will need PICC upon discharge for prison ABX treatment ID consulted: Appreciate recommendations * Started Levaquin and Cefazolin 08/11 * Echo: EF 55-60% with normal systolic function of the ventricles. No wall motion abnormalities. Pulmonary artery pressure mildly increased. Neurosurgery consult: Appreciate recommendations * Continue Neuro checks * Patient's neurological exam remained stable without evidence of radiculopathy or cauda equina syndrome * I/D of abscess with Dr. Hanley on 08/12/16 * Lumbar drain removed 08/15 Images: * Lumbar spine MRI: Large postoperative complex fluid collection following right -sided laminectomy and fusion from L3/L5 which is compatible with the clinical suspicion of a large postoperative abscess. Small epidural component is seen posterior to L4 which is causing moderate compression of the thecal sac. Developing bone marrow edema in L3, L4 and L5 which may be reactive or indicate developing osteomyelitis Medications: * Levaquin (08/11- ) * Cefazolin (08/11- ) * Zosyn () * Vancomycin () * Clindamycin (08/08) * Continue home gabapentin dosing * Continue home duloxetine (2) Sepsis Status: Resolved Plan: See plan above (3) SOLO (acute kidney injury) Status: Acute Plan: Patient with worsening creatinine despite fluids and discontinuation of vanc. Likely related to vancomycin toxicity. -Renal US unremarkable. Nephrology consulted: Appreciate recommendations -Agree with discontinuing fluids due to edema -Monitor I/Os -Complements normal, no urine eosinophils -Trend Cr, stable currently (4) Darrell infection Status: Acute Plan: Patient found to have darrell on under side of breasts and pelvic region -Nystatin ointment to be applied to affected areas Q8H (5) Hypertension Status: Chronic Plan: Hold home lisinopril as patient has been hypotensive -Continue to hold due to worsening renal function (6) Nutrition, metabolism, and development symptoms Status: Acute Plan: Diet: Regular Fluids: HLIV Electrolytes: replete prn DVT prophylaxis: Heparin 5000units q8H GI prophylaxis: Protonix Chronic conditions: * Sleep apnea: home CPAP (Darryl Wells MD R1) Problem Qualifiers (1) Sepsis: Qualified Code: A41.01 - Sepsis due to Methicillin susceptible Staphylococcus aureus (2) Hypertension: Qualified Code: I10 - Essential hypertension Darryl Wells MD R1 Aug 18, 2016 09:46 Sapphire Cuadra MD Aug 20, 2016 14:32
[2016-08-18 12:00] VITALS: BP 129/65; PULSE 65; RESP 18; TEMP 96.6; O2SAT 95
[2016-08-18] MEDS ORDERED: NYST100084 TOPICAL (12:20)
--- NOTE | 2016-08-18 13:36 | HHI.DCPOC ---
Discharge Care Plan Diagnosis: (1) Epidural abscess (2) Bacteremia (3) SOLO (acute kidney injury) Goals to Promote Your Health * To prevent worsening of your condition and complications * To maintain your health at the optimal level Directions to Meet Your Goals Take your medications as prescribed Follow your dietary instruction Follow activity as directed Keep your appointments as scheduled Take your immunizations and boosters as scheduled If your symptoms worsen call your PCP, if no PCP go to Urgent Care Center or Emergency Room Smoking is Dangerous to Your Health. Avoid second hand smoke Call the 24-hour hour crisis hotline for domestic abuse at Clair Phan MD R2 Aug 18, 2016 13:36
[2016-08-18] MEDS: ACETAMINOPHEN/HYDROcodone 325 MG/10 MG TAB PO PRN (14:18)
[2016-08-18 16:00] VITALS: BP 133/75; PULSE 68; RESP 19; TEMP 96.5; O2SAT 97
--- NOTE | 2016-08-18 17:54 | HHI.IDPN ---
Subjective Subjective Remarks Creatinine is not trending down No fever pain better walks w walker Antibiotics cefazoline levaquine Allergies: Coded Allergies: Prednisone (Verified Adverse Reaction, Intermediate, Restlessness, 08/08/16) Objective . Vital Signs Date Time Temp Pulse Resp B/P Pulse Ox O2 Delivery O2 Flow Rate FiO2 08/18/16 16:00 96.5 68 19 133/75 97 08/18/16 12:00 96.6 65 18 129/65 95 08/18/16 08:00 96.9 63 17 127/60 97 08/17/16 23:33 99.2 71 20 141/65 98 08/17/16 20:00 97.0 63 21 141/82 99 08/17/16 08/17/16 08/18/16 15:00 23:00 07:00 Intake Total 340 ml 370 ml 240 ml Output Total 600 ml 500 ml 2000 ml Balance -260 ml -130 ml -1760 ml Intake Oral 240 ml 120 ml 240 ml IV Total 100 ml 250 ml Output Urine Total 600 ml 500 ml 2000 ml # Bowel Movements 1 0 0 . Laboratory Tests Test 08/17/16 08/18/16 04:58 04:49 Sodium Level 147 MEQ/L 146 MEQ/L Potassium Level 3.9 MEQ/L 3.8 MEQ/L Chloride Level 114 MEQ/L 114 MEQ/L Carbon Dioxide Level 20.8 MEQ/L 23.1 MEQ/L Anion Gap 12 MEQ/L 9 MEQ/L Blood Urea Nitrogen 17 MG/DL 18 MG/DL Creatinine 3.78 MG/DL 3.78 MG/DL Estimat Glomerular Filtration 13 ML/MIN 13 ML/MIN Rate Random Glucose 115 MG/DL 116 MG/DL Calcium Level 8.6 MG/DL 8.1 MG/DL Imaging Last Impressions Renal Ultrasound 08/13/16 0000 Signed Impressions: Service Date/Time: Saturday, August 13, 2016 08:03 - CONCLUSION: Normal ultrasound of the urinary system. Thuan Lira MD Chest X-Ray 08/08/16 9021 Signed Impressions: Service Date/Time: Monday, August 08, 2016 18:18 - CONCLUSION: No acute disease. Eriberto Renae MD Lumbar Spine MRI 08/08/16 0000 Signed Impressions: Service Date/Time: Monday, August 08, 2016 20:26 - CONCLUSION: Large postoperative complex fluid collection following right-sided laminectomy and fusion from L3-L5 which is compatible with the clinical suspicion of a large postoperative abscess. Small epidural component is seen posterior to L4 which is causing moderate compression of the thecal sac. Developing bone marrow edema in L3, L4 and L5 which may be reactive or indicate developing osteomyelitis. Eriberto Renae MD Physical Exam CONSTITUTIONAL/GENERAL: This is a morbidly obese patient, in no apparent distress. TUBES/LINES/DRAINS: SKIN: No jaundice, rashes, or lesions. Skin temperature appropriate. Not diaphoretic. HEAD: Atraumatic. Normocephalic. EYES: Pupils equal and round and reactive. Extraocular motions intact. No scleral icterus. No injection or drainage. Fundi not examined. CARDIOVASCULAR: Regular rate and rhythm without murmurs, gallops, or rubs. No JVD. Peripheral pulses symmetric. RESPIRATORY/CHEST: Symmetric, unlabored respirations. Clear to auscultation. Breath sounds equal bilaterally. No wheezes, rales, or rhonchi. GASTROINTESTINAL: Abdomen soft, non-tender, nondistended. No hepato-splenomegaly , or palpable masses. No guarding. Bowel sounds present. MUSCULOSKELETAL: Extremities without clubbing, cyanosis, or edema. No joint tenderness or effusion noted. BACK with well approximated retention sutures Small amount of serous d/c on the dressing NEUROLOGICAL: Awake and alert. Motor and sensory grossly within normal limits. Follows commands.Normal speech. Moves all extremities. Assessment & Plan Remarks Infected back wound, MSSA, Citrobacter, E.coli MSSA bacterermia, resolved - 2 D echo suboptimal , but negative ARF - seen by Dr Vidal - no urine eos - cont t levaquine - cont cefazoline - anticipate long course 8+ wks of IV abx - abx need to be adjusted when renal fnx start to improve - monitoring of her renal fnx 3 x/wk untill complete recovery of her renal fnx is crucial to avoid underdosing of abx and therefore potential treatment failure; o/p pharmacist consult need to be obtained to adjust the dosage - PICC line if OK with Dr Vidal dw Rosie Martinez MD Aug 18, 2016 17:53
--- NOTE | 2016-08-18 17:56 | HHI.FF ---
Infusion Therapy Location of Infusion Therapy: [facility] Infusion Therapy Order Patient Information Patient Weight 144.2 kg Diagnosis: Coded Allergies: Prednisone (Verified Adverse Reaction, Intermediate, Restlessness, 08/25/16 ) Administer Medication Cefazolin 1 gram IV q 12 hours Start Treatment: Aug 19, 2016 Stop Treatment: Oct 05, 2016 Additional Information Additional Instructions [x] Peripheral flush and dressing changes per protocol [x] Implanted port and central lines tender: * Implanted port: 10 ml Normal Saline followed by 5 ml Heparin 100 units/ml Heparin flush after each use and monthly to maintain. [] May leave port accessed during therapy. [] May leave peripheral site accessed for duration of therapy. [x] If patient has SOB or respiratory distress, check oxygen saturation. If less than 90% or clinical signs of respiratory distress, administer oxygen at 2 L/min. via nasal cannula and notify physician. [x] Anaphylaxis/Reaction orders: * Stop infusion. * Keep IV line open with saline flush. * Notify physician. * Monitor vital signs every 15 minutes until symptoms resolve. * Check Oxygen saturation; Oxygen at 2 L/min. via nasal cannula if less than 90% or clinical signs of respiratory distress. * Administer diphenhydramine (Benadryl) 25 mg IV STAT, (unless patient has received as pre-med). May repeat once, if necessary. * Solu-Cortef 250 mg IVP over 30-60 seconds, use 100 mg vials for each dissolution. * Epinephrine (1mg/1 ml) 0.3 mg subcutaneously or IVP now with any signs of respiratory distress. * Check with physician for new additional pre-med orders if patient is re- challenged or re-treated. [x] May remove PICC line when treatment complete, after confirming with Physician. [x] If the patient is admitted to the hospital, the ED, or transferred via [facility] , complete transfer form including medication reconciliation order sheet. Laboratory Tests Weekly Labs: Creatinine (q Mon, Wed, Fri) Additional Information pharmacist to adjust the dose of cefazoline per GFR changes Rosie De Leon MD Aug 18, 2016 17:56
[2016-08-18 18:19] VITALS: O2SAT 97
[2016-08-18 20:00] VITALS: BP 140/72; PULSE 64; RESP 20; TEMP 96.8; O2SAT 96
--- NOTE | 2016-08-18 22:20 | HHI.NPPN ---
Subjective Renal Failure: Acute History of Present Illness 51-year-old female with past medical history of hypertension, gastroesophageal reflux disease, depression, history of sleep apnea, morbid obesity, was admitted August 08 for discharge from the lumbar incision. The patient has recent L3-L4 and L4-L5 laminectomy and fusion surgery which was done last month and she has infection on the wound. Two blood cultures were positive for staph aureus and the wound culture grew out staph aureus and other bacteria also. I was called for elevated BUN and Creatinine. Additional Remarks Patient is alert, no back pain, feeling better. Review of Systems General Constitutional: Fatigue Cardiovascular Cardiac: POWELL Objective Data Data 08/17/16 08/18/16 19:00 07:00 Intake Total 340 ml 610 ml Output Total 600 ml 2500 ml Balance -260 ml -1890 ml Intake Oral 240 ml 360 ml IV Total 100 ml 250 ml Output Urine Total 600 ml 2500 ml # Bowel Movements 1 0 Vital Signs Date Time Temp Pulse Resp B/P Pulse Ox O2 Delivery O2 Flow Rate FiO2 08/18/16 18:19 97 21 08/18/16 16:00 96.5 68 19 133/75 97 08/18/16 12:00 96.6 65 18 129/65 95 08/18/16 08:00 96.9 63 17 127/60 97 08/17/16 23:33 99.2 71 20 141/65 98 -: 08/18/16 0449 Physical Exam General Appearance: Well Nourished, No Acute Distress, Comfortable Eyes Eye Exam: Pupils Equal Throat Throat Exam: Oral Mucosa Garrett & Moist Pulmonary Resp Exam: Breath Sounds Equal, Rhonchi, Decreased Bases, Diminished Breath Sounds Cardiology CV Exam: Regular, Normal Sinus Rhythm Gastrointestinal/Abdomen GI Exam: Soft, Non-Tender, Bowel Sounds Present, Distended Extremeties Extremities Exam: Moderate Edema, Pitting Edema Neurologic Neuro Exam: Alert, Awake, Oriented Psychiatric Psych Exam: Appropriate Responses Assessment/Plan Assessment Summary: SOLO/Acute Renal Failure, Hypertension Problem List: (1) Bacteremia (2) Lumbar degenerative disc disease (3) Hypertension (4) Lumbar disc prolapse with compression radiculopathy (5) SOLO (acute kidney injury) Plan BP is stable, Complements normal, no urine eosinophils. Most likely has Vanco. related toxicity. Creatinine is still same. Continue to follow urine out put and BMP. If see some improvement in the Creatinine, can be discharged with out patient follow up. Problem Qualifiers (1) Hypertension: Qualified Code: I10 - Essential hypertension Rodolfo Vidal MD Aug 18, 2016 22:20
[2016-08-18] MEDS: GABAPENTIN 300 MG CAP PO SCH (22:26)
[2016-08-19] MEDS: ACETAMINOPHEN 325 MG TAB PO PRN ×2 (05:40→10:01)
[2016-08-19] MEDS: NYSTATIN 100,000 U/GM OINT 15 GM TUBE TOPICAL SCH ×2 (05:41→14:20)
[2016-08-19] MEDS: HEPARIN SODIUM - SQ 10,000 UNITS/ML VIAL SQ SCH ×2 (05:41→14:12)
[2016-08-19 06:06] LABS: BICARBONATE 24.4 MEQ/L (21.0-32.0); POTASSIUM 3.9 MEQ/L (3.5-5.1)
[2016-08-19 08:00] VITALS: BP 129/62; PULSE 68; RESP 18; TEMP 97.8; O2SAT 96
--- NOTE | 2016-08-19 09:29 | HHI.FPPN ---
Subjective Remarks No acute events overnight. Vital signs unremarkable. This morning patient reports that she has been nauseous every morning for the last few days which she initially thought to be due to antibiotics and/or sitting up too fast in bed. One episode of vomiting yesterday morning. However she is tolerating a diet but appetite continues to be slightly decreased from before. (Clair Phan MD R2) Objective Vitals Vital Signs Date Time Temp Pulse Resp B/P Pulse Ox O2 Delivery O2 Flow Rate FiO2 08/19/16 08:00 97.8 68 18 129/62 96 08/18/16 20:00 96.8 64 20 140/72 96 08/18/16 18:19 97 21 08/18/16 16:00 96.5 68 19 133/75 97 08/18/16 12:00 96.6 65 18 129/65 95 I/O 08/18/16 08/18/16 08/18/16 08/19/16 08/19/16 08/19/16 06:59 14:59 22:59 06:59 14:59 22:59 Intake Total 240 ml 330 ml 440 ml 440 ml Output Total 2000 ml 700 ml 550 ml 600 ml Balance -1760 ml -370 ml -110 ml -160 ml Intake Oral 240 ml 240 ml 440 ml 440 ml IV Total 90 ml Output Urine Total 2000 ml 500 ml 550 ml 600 ml Emesis 200 ml # Bowel Movements 0 0 0 (Clair Phan MD R2) Result Diagram: 08/19/16 0529 Objective Remarks GEN: In no acute distress. Laying in bed with CPAP in place. CARDIOVASCULAR: Distant heart sounds but with regular rate and rhythm without obvious murmurs, gallops, rubs. RESPIRATORY: Clear to auscultation bilaterally. Breath sounds equal bilaterally. No wheezes, rales, or rhonchi. EXT: 2+ pitting edema to bilateral shins. No calf tenderness posteriorly. NEURO/PSYCH: Awake, alert. Appropriate insight and judgment. Normal speech. ( Clair Phan MD R2) A/P Assessment and Plan 51-year-old female with a PMH significant for sleep apnea, GERD, HTN. Admitted for postoperative epidural abscess Discharge Planning Pending improvement in renal function. Patient approved for rehabilitation at discharge. Will discuss with case management regarding going to [facility] for medical management as well dw Dr. Wells wdw Dr. Cuadra [facility] Attending Attestation Patient seen and examined. Case reviewed and discussed with the resident team. Agree with plan of care as discussed with me and documented in the resident note. she is very happy to be going to [facility]. They have a full facility hospital and can check labs to follow up on her renal fxn (Sapphire Cuadra MD) Problem List: (1) Epidural abscess Status: Acute Plan: Postop laminectomy on 07/25/16. Patient was initially doing well but then developed uncontrolled pain, fevers, serosanguineous drainage from incision site on the day of this admission. Met sepsis criteria on admission with fever, elevated pulse, leukocytosis. -Resolved leukocytosis -Blood cultures and repeat wound cultures positive with MSSA -Wound culture positive for Escherichia coli, Citrobacter, Staph Aureus -Repeat blood cultures negative -Will need PICC upon discharge for skilled nursing ABX treatment, however due to renal function, attempting to get this placed while at inpatient rehab ID consulted: Appreciate recommendations * Levaquin and Cefazolin 08/11 * Echo: EF 55-60% with normal systolic function of the ventricles. No wall motion abnormalities. Pulmonary artery pressure mildly increased. * Anticipate 8 weeks of IV antibiotics * Antibiotics need to be adjusted when renal function starts to improve. * Monitor renal function 3 times per week until complete recovery to avoid underdosing of antibiotics and failure of treatment. * Low the pharmacist consult to adjust dosage at rehabilitation * PICC line if okay with Nephro Neurosurgery consult: Appreciate recommendations * Continue Neuro checks * Patient's neurological exam remained stable without evidence of radiculopathy or cauda equina syndrome * I/D of abscess with Dr. Hanley on 08/12/16 * Lumbar drain removed 08/15 Images: * Lumbar spine MRI: Large postoperative complex fluid collection following right -sided laminectomy and fusion from L3/L5 which is compatible with the clinical suspicion of a large postoperative abscess. Small epidural component is seen posterior to L4 which is causing moderate compression of the thecal sac. Developing bone marrow edema in L3, L4 and L5 which may be reactive or indicate developing osteomyelitis Medications: * Levaquin (08/11- ) * Cefazolin (08/11- ) * Prior abx use: Zosyn (), Vancomycin (), Clindamycin (08/08) * Continue home gabapentin dosing * Continue home duloxetine (2) Sepsis Status: Resolved Plan: See plan above (3) SOLO (acute kidney injury) Status: Acute Plan: Likely related to vancomycin toxicity. Slight improvement in creatinine on 08/19 -Renal US unremarkable. Nephrology consulted: Appreciate recommendations -Agree with discontinuing fluids due to edema -Monitor I/Os -Complements normal, no urine eosinophils -Trend Cr, stable currently -Can be discharged with outpatient follow-up -Wll attempt to clarify if PICC line can be placed (4) Darrell infection Status: Acute Plan: Patient found to have darrell on under side of breasts and pelvic region -Nystatin ointment to be applied to affected areas Q8H (5) Hypertension Status: Chronic Plan: Hold home lisinopril as patient has been hypotensive -Continue to hold due to worsening renal function (6) Nutrition, metabolism, and development symptoms Status: Acute Plan: Diet: Regular Fluids: HLIV Electrolytes: replete prn DVT prophylaxis: Heparin 5000units q8H GI prophylaxis: Protonix Chronic conditions: * Sleep apnea: home CPAP (Clair Phan MD R2) Problem Qualifiers (1) Sepsis: Qualified Code: A41.01 - Sepsis due to Methicillin susceptible Staphylococcus aureus (2) Hypertension: Qualified Code: I10 - Essential hypertension Clair Phan MD R2 Aug 19, 2016 09:29 Sapphire Cuadra MD Aug 20, 2016 14:34
--- NOTE | 2016-08-19 09:58 | HHI.NPPN ---
Subjective Renal Failure: Acute History of Present Illness 51-year-old female with past medical history of hypertension, gastroesophageal reflux disease, depression, history of sleep apnea, morbid obesity, was admitted August 08 for discharge from the lumbar incision. The patient has recent L3-L4 and L4-L5 laminectomy and fusion surgery which was done last month and she has infection on the wound. Two blood cultures were positive for staph aureus and the wound culture grew out staph aureus and other bacteria also. I was called for elevated BUN and Creatinine. Additional Remarks Patient is alert, feeling weakness in legs, and has unsteady gait. Review of Systems General Constitutional: Fatigue Cardiovascular Cardiac: POWELL Objective Data Data 08/18/16 08/19/16 19:00 07:00 Intake Total 330 ml 880 ml Output Total 700 ml 1150 ml Balance -370 ml -270 ml Intake Oral 240 ml 880 ml IV Total 90 ml Output Urine Total 500 ml 1150 ml Emesis 200 ml # Bowel Movements 0 0 Vital Signs Date Time Temp Pulse Resp B/P Pulse Ox O2 Delivery O2 Flow Rate FiO2 08/19/16 08:00 97.8 68 18 129/62 96 08/18/16 20:00 96.8 64 20 140/72 96 08/18/16 18:19 97 21 08/18/16 16:00 96.5 68 19 133/75 97 08/18/16 12:00 96.6 65 18 129/65 95 -: 08/19/16 0529 Physical Exam General Appearance: Well Nourished, No Acute Distress, Comfortable Eyes Eye Exam: Pupils Equal Throat Throat Exam: Oral Mucosa Hypericum & Moist Pulmonary Resp Exam: Breath Sounds Equal, Rhonchi, Decreased Bases, Diminished Breath Sounds Cardiology CV Exam: Regular, Normal Sinus Rhythm Gastrointestinal/Abdomen GI Exam: Soft, Non-Tender, Bowel Sounds Present, Distended Extremeties Extremities Exam: Moderate Edema, Pitting Edema Neurologic Neuro Exam: Alert, Awake, Oriented Psychiatric Psych Exam: Appropriate Responses Assessment/Plan Assessment Summary: SOLO/Acute Renal Failure, Hypertension Problem List: (1) Bacteremia (2) Lumbar degenerative disc disease (3) Hypertension (4) Lumbar disc prolapse with compression radiculopathy (5) SOLO (acute kidney injury) Plan BP is stable, Complements normal, no urine eosinophils. Most likely has Vanco. related toxicity. Creatinine is slightly better Continue to follow urine out put and BMP. Since there is some improvement in the Creatinine, She can be discharged with close out patient follow up. PICC can be done as this is SOLO, her Creatinine was normal. Problem Qualifiers (1) Hypertension: Qualified Code: I10 - Essential hypertension Rodolfo Vidal MD Aug 19, 2016 09:58
[2016-08-19] MEDS: DOCUSATE SODIUM 100 MG CAP PO SCH (10:04)
[2016-08-19] MEDS: GABAPENTIN 100 MG CAP PO SCH (10:05)
[2016-08-19] MEDS: DULoxetine HCl DR 30 MG CAP PO SCH (10:05)
[2016-08-19] MEDS: ceFAZolin 1,000 MG/NS 100 ML IV SCH ×2 (10:05)
[2016-08-19] MEDS: PANTOPRAZOLE SOD 40 MG DELAYED RELEASE TAB PO SCH (10:05)
[2016-08-19] MEDS: SODIUM CHLORIDE 0.9% FLUSH 5 ML FLUSH IVF SCH (10:07)
[2016-08-19 10:59] VITALS: O2SAT 99
--- NOTE | 2016-08-19 11:07 | HHI.DS ---
Discharge Summary Admission Date Aug 08, 2016 at 18:53 Discharge Date: Aug 19, 2016 Admitting Diagnosis cellulitis. Status post laminectomy (1) Epidural abscess Diagnosis: Principal Plan: Postop laminectomy on 07/25/16. Patient was initially doing well but then developed uncontrolled pain, fevers, serosanguineous drainage from incision site on the day of this admission. Met sepsis criteria on admission with fever, elevated pulse, leukocytosis. -Resolved leukocytosis -Blood cultures and repeat wound cultures positive with MSSA -Wound culture positive for Escherichia coli, Citrobacter, Staph Aureus -Repeat blood cultures negative -Will need PICC upon discharge for terminal operations supervisor ABX treatment, however due to renal function, attempting to get this placed while at inpatient rehab ID consulted: Appreciate recommendations * Levaquin and Cefazolin 08/11 * Echo: EF 55-60% with normal systolic function of the ventricles. No wall motion abnormalities. Pulmonary artery pressure mildly increased. * Anticipate 8 weeks of IV antibiotics * Antibiotics need to be adjusted when renal function starts to improve. * Monitor renal function 3 times per week until complete recovery to avoid underdosing of antibiotics and failure of treatment. * Low the pharmacist consult to adjust dosage at rehabilitation * PICC line if okay with Nephro Neurosurgery consult: Appreciate recommendations * Continue Neuro checks * Patient's neurological exam remained stable without evidence of radiculopathy or cauda equina syndrome * I/D of abscess with Dr. Hanley on 08/12/16 * Lumbar drain removed 08/15 Images: * Lumbar spine MRI: Large postoperative complex fluid collection following right -sided laminectomy and fusion from L3/L5 which is compatible with the clinical suspicion of a large postoperative abscess. Small epidural component is seen posterior to L4 which is causing moderate compression of the thecal sac. Developing bone marrow edema in L3, L4 and L5 which may be reactive or indicate developing osteomyelitis Medications: * Levaquin (08/11- ) * Cefazolin (08/11- ) * Prior abx use: Zosyn (), Vancomycin (), Clindamycin (08/08) * Continue home gabapentin dosing * Continue home duloxetine (2) Sepsis Diagnosis: Principal Plan: See plan above (3) SOLO (acute kidney injury) Diagnosis: Principal Plan: Likely related to vancomycin toxicity. Slight improvement in creatinine on 08/19 -Renal US unremarkable. Nephrology consulted: Appreciate recommendations -Agree with discontinuing fluids due to edema -Monitor I/Os -Complements normal, no urine eosinophils -Trend Cr, stable currently -Can be discharged with outpatient follow-up -Wll attempt to clarify if PICC line can be placed (4) Darrell infection Diagnosis: Secondary Plan: Patient found to have darrell on under side of breasts and pelvic region -Nystatin ointment to be applied to affected areas Q8H (5) Hypertension Diagnosis: Secondary Plan: Hold home lisinopril as patient has been hypotensive -Continue to hold due to worsening renal function (6) Nutrition, metabolism, and development symptoms Diagnosis: Secondary Plan: Diet: Regular Fluids: HLIV Electrolytes: replete prn DVT prophylaxis: Heparin 5000units q8H GI prophylaxis: Protonix Chronic conditions: * Sleep apnea: home CPAP Consultants ID, Nephrology, Neurosurgery Brief History Ms Laura is a 51-year-old female with a PMH significant for sleep apnea, GERD , HTN. Admitted due to serosanguineous drainage from lumbar incision from a L3/ 4 and L4/5 laminectomy and interbody fusion with Dr. Monk on 07/25/16. She originally presented to the ED due to uncontrolled pain. After this surgery patient was doing well and was at rehabilitation at [facility] where she was participating in PT and OT. Her pain had been well controlled until the night prior to admission when she received her pain medication 3 hours late. The morning of admission she also reports getting her pain medication 1 hour late. Since then she complained of uncontrolled pain despite pain medications. She also reported fevers during the day with a high of 103. Patient's biggest concern was pain control and SOB that required prolonged use of her CPAP. Her reports her face being red and feeling sweaty. Denies any nausea/ vomiting, abdominal pain, dysuria, chest pain, loss of appetite. Patient was unaware of back draining until her presentation in the ED today. She was admitted to the hospital and treated with broad abx coverage. She is hemodynamically stable but has staph aureus of unsure sensitivities in 2 blood cultures and still awaiting her wound cultures. She is covered with vancomycin in case she has MRSA. Her MRI is suggestive of perhaps osteo, appreciate help of Neurosurgery. Will see finals on blood cultures and will need them repeated to be sure they clear, plus will ask ID to see her on Thursday or sooner if she worsens as she will likely need fci abx. CBC/BMP: 08/19/16 0529 Significant Findings Laboratory Tests Test 08/17/16 08/18/16 08/19/16 04:58 04:49 05:29 Sodium Level 147 MEQ/L 146 MEQ/L 146 MEQ/L (136-145) (136-145) (136-145) Chloride Level 114 MEQ/L 114 MEQ/L 113 MEQ/L (98-107) (98-107) (98-107) Carbon Dioxide Level 20.8 MEQ/L (21.0-32.0) Creatinine 3.78 MG/DL 3.78 MG/DL 3.58 MG/DL (0.50-1.00) (0.50-1.00) (0.50-1.00) Estimat Glomerular Filtration 13 ML/MIN (>89) 13 ML/MIN (>89) 13 ML/MIN (>89) Rate Random Glucose 115 MG/DL 116 MG/DL 120 MG/DL (74-106) (74-106) (74-106) Calcium Level 8.1 MG/DL 8.0 MG/DL (8.5-10.1) (8.5-10.1) Blood Urea Nitrogen 19 MG/DL (7-18) Imaging Last Impressions Renal Ultrasound 08/13/16 0000 Signed Impressions: Service Date/Time: Saturday, August 13, 2016 08:03 - CONCLUSION: Normal ultrasound of the urinary system. Thuan Lira MD Chest X-Ray 08/08/16 1751 Signed Impressions: Service Date/Time: Monday, August 08, 2016 18:18 - CONCLUSION: No acute disease. Eriberto Renae MD Lumbar Spine MRI 08/08/16 0000 Signed Impressions: Service Date/Time: Monday, August 08, 2016 20:26 - CONCLUSION: Large postoperative complex fluid collection following right-sided laminectomy and fusion from L3-L5 which is compatible with the clinical suspicion of a large postoperative abscess. Small epidural component is seen posterior to L4 which is causing moderate compression of the thecal sac. Developing bone marrow edema in L3, L4 and L5 which may be reactive or indicate developing osteomyelitis. Eriberto Renae MD PE at Discharge GEN: In no acute distress. Laying in bed with CPAP in place. CARDIOVASCULAR: Distant heart sounds but with regular rate and rhythm without obvious murmurs, gallops, rubs. RESPIRATORY: Clear to auscultation bilaterally. Breath sounds equal bilaterally. No wheezes, rales, or rhonchi. EXT: 2+ pitting edema to bilateral shins. No calf tenderness posteriorly. NEURO/PSYCH: Awake, alert. Appropriate insight and judgment. Normal speech. Hospital Course Mrs. Laura is a 51-year-old female with a PMH significant for sleep apnea, GERD, HTN admitted due to serosanguineous drainage from lumbar incision from a L3/4 and L4/5 laminectomy and interbody fusion with Dr. Monk on 07/25/16. After her surgery the patient was doing well and was at rehabilitation at [facility] where she was participating in PT and OT. Her pain increased and presented to the ER on 08/08/16 and found to have an epidural abscess with MSSA bacteremia. She was taken to surgery for an uncomplicated I/D of her abscess by Neurosurgery on 08/11/16. Wound culture grew MSSA, Citrobacter, and E. coli. ABX coverage was started on admission with Vancomycin, Zosyn, and Clindamycin. ID was consulted for recommendations and transitioned her to Cefazolin and Levaquin after her Vancomycin trough was elevated with a creatinine of 2.53. Repeat BC were negative. Nephrology was consulted for her SOLO likely due to Vancomycin toxicity who recommended continued monitoring with fluids. Fluids were DC as patient became edematous 2 days later. Currently her creatinine is stable and starting to decrease. She will need continued ABX at time of her discharge per ID recommendations. She is receiving a PICC line and being discharged to [facility] for inpatient rehab and continued antibiotics Pt Condition on Discharge: Stable Discharge Disposition: Rehab Inpatient Discharge Instructions DIET: Follow Instructions for: As Tolerated, No Restrictions Activities you can perform: Weight Bearing as Gabriel Follow up Referrals: Appointment for Follow Up - 1 Week with Juan Antonio Nava MD Appointment for Follow Up - 3-5 Days lumbar suture removal Nephrology - 2-3 Days with Florencio Harding MD New Medications: Nystatin Topical (Nystatin Topical) 100,000 unit/gm Oint 1 APPLIC TOPICAL Q8HR #1 TUBE Continued Medications: Cyclobenzaprine (Flexeril) 10 Mg Tab 10 MG PO TID Muscle Spasm #[address] (Cymbalta DR) 30 Mg Capdr 30 MG PO DAILY #30 Ref 0 CAP Flaxseed (Linseed) (Flaxseed Oil) 1,000 Mg Cap 1000 MG PO DAILY Nutritional Supplement Ref 0 CAP Gabapentin (Gabapentin) 100 Mg Cap 200 MG PO DAILY #60 Ref 0 CAP Gabapentin (Gabapentin) 300 Mg Cap 300 MG PO HS #30 Ref 0 CAP Hydrocodone-Acetaminophen ([place]) 10-325 Mg Tab 1 TAB PO Q4H PRN PAIN #60 Ref 0 TAB Lansoprazole (Prevacid) 30 Mg Capdr 30 MG PO DAILY #90 Ref 1 CAP Multiple Vitamin (Multiple Vitamin) 1 Tab 1 TAB PO DAILY Nutritional Supplement Ref 0 TAB Triamcinolone Topical (Triamcinolone Topical) 0.1% Cream 1 APPLIC TOPICAL ONCE Inflammation #1 Ref 0 TUBE Discontinued Medications: Lisinopril (Lisinopril) 10 Mg Tab 10 MG PO DAILY #90 Ref 1 TAB Darryl Wells MD R1 Aug 19, 2016 11:07
[2016-08-19 12:00] VITALS: BP 127/64; PULSE 72; RESP 17; TEMP 98.3; O2SAT 96
[2016-08-19] MEDS: ONDANSETRON HCL 4 MG/2 ML VIAL IV PRN (13:24)
--- NOTE | 2016-08-19 13:37 | HHI.NSPN ---
History Chief Complaint: Incisional soreness s/p incision and drainage of lumbar wound Interval History 08/12/16: Pt with incisional soreness controlled. She feels the strength is a little better today. Pain in right leg improved now more positional. No fever or chills. 08/13/16: Pt states incisional soreness improved today. Less burning than yesterday. She states numbness in right leg stable but pain has resolved. Weakness in right leg unchanged. 08/14/16: Pt states incisional soreness improving daily. No radiculopathy in LEs. She has paresthesias in the right leg. Weakness with right EHL and dorsiflexion with slight improvement. 08/15/16: Pt states incisional pain improves every day. No radiculopathy in LEs. Numbness in right leg stable. Weakness in Right EHL and Dorsiflexion without change. 08/19/16: Pt doing well. No radiculopathy in LEs. Numbness stable in right leg , she states anterior aldrich and lateral calf into the top of the foot and 1st toe. Review of Systems General: Negative for: fever, chills, insomnia Respiratory: Negative for: shortness of breath, cough, sputum Cardiovascular: Negative for: chest pain Gastrointestinal: Negative for: nausea, vomitting, diarrhea, constipation Exam Results Vital Signs Date Time Temp Pulse Resp B/P Pulse Ox O2 Delivery O2 Flow Rate FiO2 08/19/16 12:00 98.3 72 17 127/64 96 08/19/16 10:59 21 08/15/16 20:55 Room Air Intake and Output 08/18/16 08/18/16 08/19/16 08:00 16:00 00:00 Intake Total 240 ml 330 ml 440 ml Output Total 2000 ml 700 ml 550 ml Balance -1760 ml -370 ml -110 ml Physical Examination Resp: CTA bilaterally Heart: NSR no murmurs Abd: Soft positive bs Skin: Incision with retention sutures in place. No drainage on bandage that was changed this morning. Muscle: 0/5 EHL and 1/5 dorsiflexion strength. 2-3/5 gastrocsoleus. 4/5 right knee extension. 3-4/5 right iliopsoas. 5/5 left lower extremity. Neuro: Pt awake and alert. Follows commands well. Speech appropriate. Lab, Micro, Other Results Laboratory Tests Test 08/19/16 05:29 Sodium Level 146 MEQ/L Potassium Level 3.9 MEQ/L Chloride Level 113 MEQ/L Carbon Dioxide Level 24.4 MEQ/L Anion Gap 9 MEQ/L Blood Urea Nitrogen 19 MG/DL Creatinine 3.58 MG/DL Estimat Glomerular Filtration 13 ML/MIN Rate Random Glucose 120 MG/DL Calcium Level 8.0 MG/DL 08/18/16 08/18/16 08/19/16 15:00 23:00 07:00 Intake Total 330 ml 440 ml 440 ml Output Total 700 ml 550 ml 600 ml Balance -370 ml -110 ml -160 ml Intake Oral 240 ml 440 ml 440 ml IV Total 90 ml Output Urine Total 500 ml 550 ml 600 ml Emesis 200 ml # Bowel Movements 0 0 Medical Decision Making Impression and Plan A: 51 y/o FM s/p incision and drainage of lumbar wound Hx lumbar fusion with instrumentation Decreased kidney function P: Continue with antibiotics Continue with frequent bandage changes. Continue with medical management. Neurosurgically stable for rehab when medically stable. Kidney function being monitored currently. Pt will follow up with us on 08/25 for suture removal. Ryan Soto Aug 19, 2016 13:36
--- NOTE | 2016-08-19 14:42 | RADRPT ---
EXAM DATE/TIME: 08/19/2016 13:06 [facility] COMPARISON: CHEST SINGLE AP, August 08, 2016, 15:20. INDICATIONS: Post PICC line placement. MEDICAL HISTORY: None. SURGICAL HISTORY: Fusion, lumbar. Fusion, cervical. ENCOUNTER: Subsequent ACUITY: 1 week PAIN SCORE: 3/10 LOCATION: Bilateral chest FINDINGS: There is an anterior cervical fusion plate present. There is a PICC line in place with its tip overl cosmo the SVC. The heart size is normal. There is increased density at the right hilar and right bas e. CONCLUSION: 1. PICC line in good position. 2. Mild consolidation or atelectasis at the right perihilar and right base Thuan Montoya MD on August 19, 2016 at 13:55 Board Certified Radiologist. This report was verified electronically.
[2016-09-08] MEDS ORDERED: MUPI2OIN TOPICAL (12:00)
[2016-10-06] MEDS ORDERED: CYMB30CA PO (09:53)
[2016-10-06] MEDS ORDERED: LISI10TA3 PO (10:00)
[2016-10-06] MEDS ORDERED: PREV30CA11 PO (10:00)
== END 2016-08-19 18:21 | DRG 856 ==
LOC: NEPA 14:41 → NEDA 18:53 → N07B 22:51
PROVIDERS: ADMIT Family Medicine; ATTEND Family Medicine
PROC: 0JD70ZZ Extraction of Back Subcutaneous Tissue and Fascia, Open Approach (ICD-10-PCS; principal; 2016-08-11 15:32)
PROC: 02HV33Z Insertion of Infusion Device into Superior Vena Cava, Percutaneous Approach (ICD-10-PCS; 2016-08-19)
DX: T81.4XXA Infection following a procedure, initial encounter (principal); A41.01 Sepsis due to Methicillin susceptible Staphylococcus aureus; G06.2 Extradural and subdural abscess, unspecified; N17.9 Acute kidney failure, unspecified; E87.1 Hypo-osmolality and hyponatremia; Z68.42 Body mass index [BMI] 45.0-49.9, adult; B37.2 Candidiasis of skin and nail; G47.30 Sleep apnea, unspecified; F51.9 Sleep disorder not due to a substance or known physiological condition, unspecified; E86.0 Dehydration; I10 Essential (primary) hypertension; K21.9 Gastro-esophageal reflux disease without esophagitis; R60.9 Edema, unspecified; E66.01 Morbid (severe) obesity due to excess calories; D64.9 Anemia, unspecified; T36.8X5A Adverse effect of other systemic antibiotics, initial encounter; F32.9 Major depressive disorder, single episode, unspecified; Z98.1 Arthrodesis status
CPT/HCPCS: 36569; 71010; 71020; 72148; 76775; 76937; 80048; 80053; 80202; 81001; 83605; 83735; 83935; 84100; 84300; 84484; 85025; 85027; 86160; 86403; 87015; 87040; 87070; 87077; 87102; 87116; 87147; 87186; 87205; 87206; 87804; 93005; 93306; 94150; 94667; 94668; 96365; 96366; 96368; 96375; J0131; J0690; J1170; J1580; J1644; J1956; J2250; J2270; J2405; J2543; J3010; J3370; J7030; J7040; J7050